=== PATIENT | male | born 1990 | race Caucasian/White ===

== ENCOUNTER 2017-03-06 16:31 | Emergency (ER) | payer SELFPAY ==
[2017-03-06 16:48] VITALS: BP 123/81; PULSE 74; RESP 18; TEMP 36.6; O2SAT 97; BMI 25.4
--- NOTE | 2017-03-06 17:14 | HMH.EDUTC ---
[facility] [place] Impression: Pain and swelling of left knee Disposition: Home, Self-Care Condition on Discharge: Good Instructions: Bakers Cyst, DI for Knee Pain, How to Apply an Rajeev Wrap, How To Perform RICE (Rest, Ice, Compress, Elevate) Additional Instructions: As we discussed, could be a Sky's Cyst but with your chronic pain, age and past medical history, I reviewed your symptoms with ER MD and he suggested you follow up with ortho. Rest elevated rajeev wrap Call ortho tomorrow Referrals: Attila Richardson MD [Staff Physician] - (Call ortho tomorrow. Tell them you were seen in [facility] tonight. ER neg. KNee pain w/ new onset swelling without injury. We told you to call in morning and request appt LATOYA. While waiting for appt, if pain or swelling worsens, redness occurs, you develop fever or chills then you follow up in [place] immediately. ) Time of Disposition: 18:33 Medical Decision Making Vital Signs: 03/06/17 16:48 Temperature 97.9 F Temperature Source Temporal Artery Scan Pulse Rate [Brachial] 74 Respiratory Rate 18 Blood Pressure [Right Arm] 123/81 Blood Pressure Mean [Right Arm] 95 Blood Pressure Source [Right Arm] Automatic Cuff Blood Pressure Position [Right Arm] Sitting 02 Sat by Pulse Oximetry 97 Oxygen Delivery Method Room Air Orders (Tests/Meds): ORDERS Category Date Time Status XR knee LT 3V Stat Exams 03/06/17 17:20 Taken - Radiology Data #1 Image(s): Knee Image Reviewed: Yes I reviewed the patient's radiology image, Yes I reviewed the patient's radiology image w/the ED provider Preliminary Findings: Normal/NAD (per Dr. Fernandez, ER MD) - Mario Inquiry Pt receiving controlled substance: No [facility] [place] - General Stated complaint: knot behind left knee Time Seen by Provider: 03/06/17 17:14 Mode of Arrival: Ambulatory Source of Information: Patient Limitations: No Limitations Description of Symptoms (Recalled from Triage Doc. by RN): KNOT ON THE BACK OF THE LEFT KNEE SINCE LAST NIGHT HEENT Symptoms (Recalled from RN notes): No Resp Symptoms (Recalled from RN notes): No Skin Symptoms (Recalled from RN notes): No MS Symptoms (Recalled from RN notes): No Functional Status (Recalled from RN notes): NA - History of Present Illness Provider Complaint: c/o swelling like a knot posterior left knee. First noticed last night. Fluctuates in size depending on activity. Hx of chronic left knee pain x 1 year. Hx of psoriatic arthritis and I just figured it has gotten in there . Has not been seen for symptoms. No PCP. Pain worse with ambulating or on stairs. Better at rest. Ibuprofen hasn't helped. Ice seemed to make swelling worse. Stands on feet working at [employer]. No known injury. Denies N/T. Feels anterior knee has fluid on it at times. - Related Data Home Medications Medication Instructions Recorded Confirmed No Known Home Medications [No 03/06/17 03/06/17 Known Home Medications] Allergies Allergy/AdvReac Type Severity Reaction Status Date / Time codeine [CODEINE] Allergy Unknown Verified 03/06/17 16:53 - Worker's Comp Is this a Worker's Comp case?: No [facility] History I have reviewed the patient's past medical history: Yes (psoriatic arthritis) Other Surgeries: Yes: No Previous Surgery - *Social History Smoking Status: Current every day smoker Tobacco Type: cigarettes Alcohol Intake: current Alcohol Intake Frequency:: a few times a month - Psychiatric History Expresses thoughts of harming self/others: None Suicide Plan Description: No Plan ROS Obtained: Yes Systems reviewed as appropriate & no additional complaints - Constitutional Constitutional: Denies body ache, Denies chills, Denies fatigue, Denies weakness - Cardiovascular Cardiovascular: Denies chest pain, Denies irregular heart rhythm - Respiratory Respiratory: No cough, No dyspnea - Musculoskeletal Musculoskeletal: Reports as per HPI, Denies abnormal gait, Denies decreased m
--- NOTE | 2017-03-06 17:20 | XR_ITS ---
XR knee LT 3V Ordering Physician: Isabella Pierre Patient Age: 26 years: Male HISTORY: ITS.REASON: chronic left knee pain, now posterior swelling TECHNIQUE: 3 views of the left knee COMPARISON :None FINDINGS No fracture nor dislocation. However there is a generous joint effusion suprapatella bursa clearly evident on the lateral view. The joint space appears to be fairly well-maintained on this nonweightbearing image. As well mineralized. Subtle Minor increased density along lateral aspect of the distal femoral metaphysis likely from old resolved fibrous cortical defect. IMPRESSION: A generous joint effusion suprapatella bursa. Osseous structures intact. No fracture evident. Joint space well maintained
--- NOTE | 2017-03-06 17:20 | ED_ITS ---
[facility] [place] Clinical Impression: Pain and swelling of left knee Disposition: Home, Self-Care Condition on Discharge: Good Instructions: Bakers Cyst, DI for Knee Pain, How to Apply an Rajeev Wrap, How To Perform RICE (Rest, Ice, Compress, Elevate) Additional Instructions: As we discussed, could be a Sky's Cyst but with your chronic pain, age and past medical history, I reviewed your symptoms with ER MD and he suggested you follow up with ortho. Rest elevated rajeev wrap Call ortho tomorrow Referrals: Attila Richardson MD [Staff Physician] - (Call ortho tomorrow. Tell them you were seen in [facility] tonight. ER neg. KNee pain w/ new onset swelling without injury. We told you to call in morning and request appt LATOYA. While waiting for appt, if pain or swelling worsens, redness occurs, you develop fever or chills then you follow up in [place] immediately. ) Time of Disposition: 18:33 Medical Decision Making Vital Signs: 03/06/17 16:48 Temperature 97.9 F Temperature Source Temporal Artery Scan Pulse Rate [Brachial] 74 Respiratory Rate 18 Blood Pressure [Right Arm] 123/81 Blood Pressure Mean [Right Arm] 95 Blood Pressure Source [Right Arm] Automatic Cuff Blood Pressure Position [Right Arm] Sitting 02 Sat by Pulse Oximetry 97 Oxygen Delivery Method Room Air Orders (Tests/Meds): ORDERS Category Date Time Status XR knee LT 3V Stat Exams 03/06/17 17:20 Taken - Radiology Data #1 Image(s): Knee Image Reviewed: Yes I reviewed the patient's radiology image, Yes I reviewed the patient's radiology image w/the ED provider Preliminary Findings: Normal/NAD (per Dr. Fernandez, ER MD) - Mario Inquiry Pt receiving controlled substance: No [facility] [place] HPI - General Stated complaint: knot behind left knee Time Seen by Provider: 03/06/17 17:14 Mode of Arrival: Ambulatory Source of Information: Patient Limitations: No Limitations Description of Symptoms (Recalled from Triage Doc. by RN): KNOT ON THE BACK OF THE LEFT KNEE SINCE LAST NIGHT HEENT Symptoms (Recalled from RN notes): No Resp Symptoms (Recalled from RN notes): No Skin Symptoms (Recalled from RN notes): No MS Symptoms (Recalled from RN notes): No Functional Status (Recalled from RN notes): NA - History of Present Illness Provider Complaint: c/o swelling like a knot posterior left knee. First noticed last night. Fluctuates in size depending on activity. Hx of chronic left knee pain x 1 year. Hx of psoriatic arthritis and I just figured it has gotten in there . Has not been seen for symptoms. No PCP. Pain worse with ambulating or on stairs. Better at rest. Ibuprofen hasn't helped. Ice seemed to make swelling worse. Stands on feet working at [employer]. No known injury. Denies N/T. Feels anterior knee has fluid on it at times. - Related Data Home Medications Medication Instructions Recorded Confirmed No Known Home Medications [No 03/06/17 03/06/17 Known Home Medications] Allergies Allergy/AdvReac Type Severity Reaction Status Date / Time codeine [CODEINE] Allergy Unknown Verified 03/06/17 16:53 - Worker's Comp Is this a Worker's Comp case?: No [facility] History I have reviewed the patient's past medical history: Yes (psoriatic arthritis) Other Surgeries: Yes: No Previous Surgery - *Social History Smoking Status: Current every day smoker Tobacco T
== END 2017-03-06 18:41 | disposition home or self-care (01) ==
LOC: ER 16:38 → UTC 16:43
PROVIDERS: Emergency Provider Nurse Practitioner Family
DX: M25.562 Pain in left knee (principal); F17.210 Nicotine dependence, cigarettes, uncomplicated; Z88.6 Allergy status to analgesic agent; L40.52 Psoriatic arthritis mutilans
CPT/HCPCS: 73562; 99202

== ENCOUNTER 2017-04-14 14:59 | Emergency (ER) | payer SELFPAY ==
[2017-04-14 15:16] VITALS: BP 122/75; PULSE 110; RESP 20; TEMP 37.4; O2SAT 98; BMI 23.6
--- NOTE | 2017-04-14 15:35 | HMH.EDUTC ---
[facility] [place] Clinical Impression: Acute bronchitis Qualifiers: Bronchitis organism: unspecified organism Qualified Code(s): J20.9 - Acute bronchitis, unspecified Disposition: Home, Self-Care Condition on Discharge: Good Instructions: DI for Acute Bronchitis Additional Instructions: * STOP SMOKING!!!! * No antibiotic. Xray negative for pneumonia and most bronchitis is viral. Be sure to follow up for new, worsening or persistent symptoms. * Monitor Temp. Feeling feverish and having a fever are not the same thing. Tylenol every 4 hours as needed no more then 5 times a day or 4000mg in 24 hours and/or ibuprofen every 6 hours as needed no more then 3200mg in 24 hours (as long as your primary care doctor has told you that it is ok to take both) for fever/aches/pain. ER if fever no less than 101 despite tylenol and ibuprofen * humidifier/vaporizer/hot steamy shower * Inhaler every 4-6 hours as needed like we discussed. If unsure how to use it, ask pharmacist to demonstrate how. Should help open airways and improve cough, wheezing, shortness of breath. * Mucinex during the day for your cough and cough suppressant only at night. Be sure to drink lots of water. Insurance may not cover a prescription of mucinex. Might be cheaper to get 400mg tablets and take 2 tablets morning, midday and evening all with lots of water. * Tessalon Perles will not cause drowsiness but use at bedtime to help stop cough so that you can get some rest * Start steroid today. Helps with inflammation therefore, cough and wheezing. Follow directions on package. Rvwd side effects. Pt reports they have taken them before. Follow up with primary care, [facility] or ER IMMEDIATELY for new or worsening symptoms OR no noticeable improvement over the next 48-72 hours. 911 for difficulty breathing. Prescriptions: Albuterol Sulfate [Albuterol HFA Inhaler] 1 - 2 puffs IH Q4-6H PRN #1 inh PRN Reason: Shortness Of Breath Or Wheezing Benzonatate [Benzonatate 200mg Cap] 200 mg PO HS PRN #14 cap PRN Reason: Cough predniSONE [Deltasone 10mg tablet] 10 mg PO BID #10 tab Forms: Work/School Release Time of Disposition: 16:41 Medical Decision Making Vital Signs: 04/14/17 15:16 Temperature 99.4 F Temperature Source Temporal Artery Scan Pulse Rate [Right Brachial] 110 H Respiratory Rate 20 Blood Pressure [Right Arm] 122/75 Blood Pressure Mean [Right Arm] 90 Blood Pressure Source [Right Arm] Automatic Cuff Blood Pressure Position [Right Arm] Sitting 02 Sat by Pulse Oximetry 98 Oxygen Delivery Method Room Air Orders (Tests/Meds): ORDERS Category Date Time Status CXR 2 view (NOT portable) [XR chest 2V] Stat Exams 04/14/17 15:39 Taken - Radiology Data #1 Image(s): Chest Image Reviewed: Yes I reviewed the patient's radiology image w/the ED provider Preliminary Findings: Normal/NAD Rvwd w/ Dr. Fernandez, agrees likely bronchitis. No acute findings - Mario Inquiry Pt receiving controlled substance: No [facility] [place] HPI - General Stated complaint: cough, lung pain Time Seen by Provider: 04/14/17 15:35 Mode of Arrival: Ambulatory Source of Information: Patient Limitations: No Limitations Description of Symptoms (Recalled from Triage Doc. by RN): COUGH, CHEST CONGESTION, VOMITING SINCE MONDAY HEENT Symptoms (Recalled from RN notes): No Resp Symptoms (Recalled from RN notes): Yes (COUGH, CHEST CONGESTION) Skin Symptoms (Recalled from RN notes): No MS Symptoms (Recalled from RN notes): No Functional Status (Recalled from RN notes): N/A - History of Present Illness Provider Complaint: c/o productive cough. Started w/ nasal drainage and sore throat Monday, 4 days ago. Not sure when cough, chest congestion started. Reports coughing so much, chest hurts with cough or deep breaths. SOA at times. Wheezing a lot . + tobacco abuse but not this week. I can't without coughing . No known sick contacts. Not sure about fevers but feeling feverish. - Related Data Previous
--- NOTE | 2017-04-14 15:39 | ED_ITS ---
[facility] [place] Clinical Impression: Acute bronchitis Qualifiers: Bronchitis organism: unspecified organism Qualified Code(s): J20.9 - Acute bronchitis, unspecified Disposition: Home, Self-Care Condition on Discharge: Good Instructions: DI for Acute Bronchitis Additional Instructions: * STOP SMOKING!!!! * No antibiotic. Xray negative for pneumonia and most bronchitis is viral. Be sure to follow up for new, worsening or persistent symptoms. * Monitor Temp. Feeling feverish and having a fever are not the same thing. Tylenol every 4 hours as needed no more then 5 times a day or 4000mg in 24 hours and/or ibuprofen every 6 hours as needed no more then 3200mg in 24 hours ( as long as your primary care doctor has told you that it is ok to take both) for fever/aches/pain. ER if fever no less than 101 despite tylenol and ibuprofen * humidifier/vaporizer/hot steamy shower * Inhaler every 4-6 hours as needed like we discussed. If unsure how to use it, ask pharmacist to demonstrate how. Should help open airways and improve cough, wheezing, shortness of breath. * Mucinex during the day for your cough and cough suppressant only at night. Be sure to drink lots of water. Insurance may not cover a prescription of mucinex. Might be cheaper to get 400mg tablets and take 2 tablets morning, midday and evening all with lots of water. * Tessalon Perles will not cause drowsiness but use at bedtime to help stop cough so that you can get some rest * Start steroid today. Helps with inflammation therefore, cough and wheezing. Follow directions on package. Rvwd side effects. Pt reports they have taken them before. Follow up with primary care, [facility] or ER IMMEDIATELY for new or worsening symptoms OR no noticeable improvement over the next 48-72 hours. 911 for difficulty breathing. Prescriptions: Albuterol Sulfate [Albuterol HFA Inhaler] 1 - 2 puffs IH Q4-6H PRN #1 inh PRN Reason: Shortness Of Breath Or Wheezing Benzonatate [Benzonatate 200mg Cap] 200 mg PO HS PRN #14 cap PRN Reason: Cough predniSONE [Deltasone 10mg tablet] 10 mg PO BID #10 tab Forms: Work/School Release Time of Disposition: 16:41 Medical Decision Making Vital Signs: 04/14/17 15:16 Temperature 99.4 F Temperature Source Temporal Artery Scan Pulse Rate [Right Brachial] 110 H Respiratory Rate 20 Blood Pressure [Right Arm] 122/75 Blood Pressure Mean [Right Arm] 90 Blood Pressure Source [Right Arm] Automatic Cuff Blood Pressure Position [Right Arm] Sitting 02 Sat by Pulse Oximetry 98 Oxygen Delivery Method Room Air Orders (Tests/Meds): ORDERS Category Date Time Status CXR 2 view (NOT portable) [XR chest 2V] Stat Exams 04/14/17 15:39 Taken - Radiology Data #1 Image(s): Chest Image Reviewed: Yes I reviewed the patient's radiology image w/the ED provider Preliminary Findings: Normal/NAD Rvwd w/ Dr. Fernandez, agrees likely bronchitis. No acute findings - Mario Inquiry Pt receiving controlled substance: No [facility] [place] - General Stated complaint: cough, lung pain Time Seen by Provider: 04/14/17 15:35 Mode of Arrival: Ambulatory Source of Information: Patient Limitations: No Limitations Description of Symptoms (Recalled from Triage Doc. by RN): COUGH, CHEST CONGESTION, VOMITING SINCE MONDAY HEENT Symptoms (Recalled from RN notes): No Resp Symptoms (Recalled from RN notes): Yes (COUGH, CHEST CONGESTION) Skin Symptoms (Recalled from RN notes): No MS Symptoms (Recalled from RN notes): No
--- NOTE | 2017-04-14 15:39 | XR_ITS ---
XR chest 2V HISTORY: ITS.REASON: COUGH, CHEST CONGESTION, SMOKER ORDERING PHYSICIAN: Isabella Pierre PATIENT AGE: 26 years COMPARISON: None available FINDINGS: The cardiomediastinal silhouette and pulmonary vascularity are within normal limits. The lungs are clear without infiltrates, suspicious nodules, or pleural effusions. Calcified granulomas present in the lingula No acute bony abnormalities. IMPRESSION: Negative chest, no acute finding
[2017-04-14 16:43] VITALS: BP 122/75; PULSE 110; RESP 20; TEMP 37.4; O2SAT 98
[2017-04-17 15:54] LABS: UTC Influenza A Antigen Negative (Negative); UTC Influenza B Antigen Negative (Negative)
== END 2017-04-14 16:45 | disposition home or self-care (01) ==
PROVIDERS: Emergency Provider Nurse Practitioner Family
DX: J20.9 Acute bronchitis, unspecified (principal)
CPT/HCPCS: 71046; 87804; 99203

== ENCOUNTER 2017-09-05 18:39 | Observation (INO) ==
--- NOTE | 2017-09-05 19:09 | Emergency Department Note ---
ED Disposition Condition on Discharge: Fair - Critical Care Critical Care Time: No <AmbergustaboNara - Last Filed: 09/05/17 20:04> <Asif Varela - Last Filed: 09/05/17 20:45> Clinical Impression: Nephrolithiasis Abdominal pain Qualifiers: Abdominal location: right lower quadrant Qualified Code(s): R10.31 - Right lower quadrant pain Disposition: Admitted as Observation Referrals: Provider,Referral, MD [Primary Care Provider] - Attestation: On 09/05/17, the high probability of a clinically significant, sudden or life threatening deterioration of the following system(s) required my full and direct attention, intervention and personal management. The time I documented below is in addition to time spent performing reported procedures but includes the following listed in this critical care notation. Medical Decision Making - Mario Inquiry Pt receiving controlled substance: No Mario was queried for this patient: No - Lab Data Result diagrams: 09/05/17 19:10 <AmbergustaboNara - Last Filed: 09/05/17 20:04> - Lab Data Lab results reviewed: Yes: I reviewed the patient's lab results. Result diagrams: 09/05/17 19:10 09/05/17 19:10 - CT Data CT Scan: Abdomen, Pelvis Time Received: 20:[address] Reviewed: Yes: I have viewed the radiologist's interpretation Preliminary Findings: Abnormal (possible appendicitis) - Physician Consults Physician Consulted: navneet Reason -: Admission Additional Consult: dave Reason -: Pt condition <Asif Varela - Last Filed: 09/05/17 20:45> Vital Signs: 09/05/17 18:49 09/05/17 20:08 Temperature 97.0 F L Temperature Source Oral Pulse Rate [Right Brachial] 79 77 Respiratory Rate 18 18 Blood Pressure [Right Arm] 119/79 120/82 Blood Pressure Mean [Right Arm] 92 94 Blood Pressure Source [Right Arm] Automatic Cuff Blood Pressure Position [Right Arm] Sitting 02 Sat by Pulse Oximetry 98 98 Oxygen Delivery Method Room Air Room Air - Lab Data Lab Results 09/05/17 19:10: WBC 5.5, RBC 5.31, Hgb 15.9, Hct 47.7, MCV 89.9, MCH 30.0, MCHC 33.4, RDW 12.8, Plt Count 253, MPV 7.3 L, Neut % (Auto) 66.1, Lymph % (Auto) 23.9, [place] % (Auto) 6.9, Eos % (Auto) 2.6, Baso % (Auto) 0.5, Neut # (Auto) 3.6 , Lymph # (Auto) 1.3, [place] # (Auto) 0.4, Eos # (Auto) 0.1, Baso # (Auto) 0.0 09/05/17 19:10: Sodium 139, Potassium 3.8, Chloride 106, Carbon Dioxide 25, Anion Gap 11.8, BUN 9, Creatinine 1.07, Estimated Creat Clear 116, Estimated GFR 83, Est GFR ( Amer) 100, Glucose 99, Calcium 9.1, Total Bilirubin 0.6 , AST 14 L, ALT 24, Alkaline Phosphatase 89, Total Protein 7.5, Albumin 3.9, Globulin 3.6 H, Albumin/Globulin Ratio 1.1, Lipase 102 09/05/17 19:10: Urine Color Yellow, Urine Appearance Clear, Urine pH 6.5, Ur Specific [place] 1.015, Urine Protein Negative, Urine Glucose (UA) Negative, Urine Ketones Negative, Urine Blood Negative, Urine Nitrate Negative, Urine Bilirubin Negative, Urine Urobilinogen 1.0, Ur Leukocyte Esterase Negative, Urine RBC None, Urine WBC None, Ur Squamous Epith Cells None, Urine Bacteria Trace, Urine Mucus 1+ Orders (Tests/Meds): ED MEDICATIONS Discontinued Medications Generic Name Dose Route Start Last Admin Trade Name Freq PRN Reason Stop Dose Admin Sodium Chloride 1,000 mls @ 999 mls/hr 09/05/17 19:15 09/05/17 19:05 Sod Chlor 0.9% 1000ml Bag IV 09/05/17 20:15 999 mls/hr .Q1H1M STEPHEN Administration Iopamidol 75 ml 09/05/17 19:44 09/05/17 19:44 [id number]; 75ml Vial IV 09/05/17 19:45 75 ml ONCE ONE Administration Ketorolac Tromethamine 30 mg 09/05/17 19:04 09/05/17 19:04 Toradol 30mg/Ml Vial IV 09/05/17 19:05 30 mg ONCE ONE Administration Ondansetron HCl 4 mg 09/05/17 19:04 07/24/18 19:05 Zofran 4mg/2ml Vial IV 09/05/17 19:05 4 mg ONCE ONE Administration Sodium Chloride 10 ml 09/05/17 19:44 09/05/17 19:44 Rad-Saline Flush 10ml Syringe IV 09/05/17 19:45 10 ml ONCE ONE Administration Tamsulosin HCl 0.4 mg 09/05/17 21:00 Flomax 0.4mg Capsule PO 10/05/17 20:59 HS STEPHEN Tamsulosin HCl 0.4 mg 09/05/17 19:50 09/05/17 19:54 Flomax 0.4mg Capsule PO 09/05/17 19:51 0.4 mg ONCE ONE Administration ORDERS Category Date Time Status CT abdomen pelvis wo/w con Stat Cat Scan 09/05/17 19:06 Taken Medical Decision Narrative: The patient underwent her CT and labs, results are pending was signed out to incoming physician Dr Varela for reassessment and disposition. (Nara Jordan) General Adult HPI - General Mode of Arrival: Ambulatory Limitations: No Limitations Description of Symptoms (Recalled from ER Triage Doc. by RN): abdominal and flank pain bilaterally - History of Present Illness Onset (ago): hour(s) Location: abdomen Radiation: non-radiation Severity: moderate Severity scale (1-10): 8 Quality: sharp Consistency: constant Relieving factors: none Exacerbating factors: none Associated symptoms: nausea/vomiting Treatments prior to arrival: other (norco and cipro. ) <Nara Jordan - Last Filed: 09/05/17 20:04> <Asif Varela - Last Filed: 09/05/17 20:45> - General Chief complaint: PAIN Stated complaint: poss kidney stone Time Seen by Provider: 09/05/17 18:50 - History of Present Illness HPI narrative: 26 years old white male with a history of psoriatic arthritis and nephrolithiasis. 2 days ago he developed left flank pain was evaluated at [facility] and was found to have hematuria and was treated for left ureteric stone with [place], Flomax and Cipro. The patient was unable to afford his Flomax and he did not strain his urine and he denies gross hematuria. Today he woke up from his nap at 4 PM with the right flank pain sharp in character rated 4/10 went to work and the pain worsened to 8/10 with nausea and dry heaves. He denies hematuria frequency or dysuria. He continues to complain of bilateral flank pain worse in the right. (Nara Jordan) - Related Data Home Medications Medication Instructions Recorded Confirmed No Known Home Medications 09/05/17 09/05/17 Allergies Allergy/AdvReac Type Severity Reaction Status Date / Time codeine [CODEINE] Allergy Unknown nausea & Verified 03/28/17 09:33 swelling [facility] History I have reviewed the patient's past medical history: Yes (Patient provided above history. ) Medical History: Reports:: Anxiety Denies:: Asthma, Cancer, Diabetes Mellitus Type 1, Diabetes Mellitus Type 2, Hypertension, MRSA Laterality Cases: Right: Other Other Surgeries: Yes: No Previous Surgery Amputation: No Fractures: No - Social History Educational Level: Completed High School Smoking Status: Never smoker Tobacco Type: cigarettes # Packs/Day (cigarettes): 1 Alcohol Intake: never - Psychiatric History Expresses thoughts of harming self/others: None Suicide Plan Description: No Plan Pschychiatric History:: Reports:: Anxiety Family Hx:: Cancer, Hypertension, Diabetes, Asthma <Nara Jordan - Last Filed: 09/05/17 20:04> ROS Obtained: Yes All systems reviewed & no additional complaints <Nara Jordan - Last Filed: 09/05/17 20:04> Physical Exam - General General appearance: alert, in no apparent distress - Head Head exam: atraumatic, normocephalic, normal inspection - Eye Eye exam: Present: normal appearance, PERRL, EOMI. Absent: scleral icterus, nystagmus - ENT ENT exam: Present: normal exam, normal oropharynx, mucous membranes moist, TM's normal bilaterally, normal external ear exam - Neck Neck exam: Present: normal inspection, full ROM, trachea midline. Absent: meningismus, lymphadenopathy - Chest Chest inspection: Present: normal inspection, symmetric chest wall rise. Absent : tenderness - Respiratory Respiratory exam: Present: normal lung sounds bilaterally. Absent: respiratory distress - Cardiovascular Cardiovascular exam: Present: regular rate, normal rhythm. Absent: JVD - Abdominal Exam Abdominal exam: Present: soft, tenderness, guarding, rebound, normal bowel sounds, tenderness at [place], other (In addition to bilateral flank tenderness he has a right lower quadrant tenderness with rebound tenderness.). Absent: distention, rigidity - exam: Present: normal inspection, normal testicular lie, circumcised. Absent : testicular tenderness, urethral discharge - Extremities Exam Extremities exam: Present: normal inspection, full ROM, normal capillary refill. Absent: calf tenderness - Back Exam Back exam: Present: normal inspection, CVA tenderness (R), CVA tenderness (L), other (The tenderness is worse on the right than left. ). Absent: tenderness - Neurological Exam Neurological exam: Present: alert, oriented X3, CN II-XII intact, motor sensory deficit, reflexes normal - Psychiatric Psychiatric exam: Present: normal affect, normal mood - Skin Skin exam: Present: warm, dry, intact, normal color - Lymphatic Lymphatic Findings: no adenopathy <Nara Jordan - Last Filed: 09/05/17 20:04>
[2017-09-05 19:17] LABS: Microscopic, Urine URINE MICROSCOPIC (MICROSCOPIC)
[2017-09-05 19:19] LABS: Appearance,Urine CLEAR (Clear); Bilirubin,Urine Negative (Negative); Blood, Urine Negative (Negative); Color,Urine YELLOW (Yellow); Glucose,Urine (UA) Negative (Negative); Ketones,Urine Negative (Negative); Leukocyte Esterase,Urine Negative (Negative); PH,Urine 6.5 (5.0-8.5); Protein,Urine Negative (Negative); Specific Gravity, Urine 1.015 (1.005-1.030)
[2017-09-05 19:20] LABS: Basophils % 0.5 % (0.1-2.0); Eosinophils # 0.1 K/mm3 (0.0-0.4); Eosinophils % 2.6 % (0.1-12.0); Hematocrit 47.7 % (42.0-52.0); Hemoglobin 15.9 g/dL (14.1-18.0); Lymphocytes # 1.3 K/mm3 (0.7-4.5); Lymphocytes % 23.9 K/mm3 (10-50); Mean Corpuscular HGB Conc 33.4 g/dL (31.8-35.4); Mean Corpuscular Volume 89.9 fl (80-94); Mean Platelet Volume 7.3 fl (7.4-10.4); Monocytes # 0.4 K/mm3 (0.1-1.0); Monocytes % 6.9 % (1.7-9.3); Neutrophils # 3.6 K/mm3 (1.8-7.8); Neutrophils % 66.1 % (37.0-80.0); Platelet Count 253 K/mm3 (142-424); Red Blood Count 5.31 M/mm3 (4.60-6.20); Red Cell Distribution Width 12.8 % (11.5-17.5); White Blood Count 5.5 K/mm3 (4.8-10.8)
[2017-09-05 19:28] LABS: Bacteria,Urine Trace /lpf; Mucus,Urine 1+ /lpf
[2017-09-05 20:04] LABS: Albumin Level 3.9 gm/dL (3.4-5.0); Albumin/Globulin Ratio 1.1 (1.1-1.8); Anion Gap 11.8 mEq/L (5-15); Bilirubin,Total 0.6 mg/dL (0.2-1.0); Calcium 9.1 mg/dL (8.5-10.1); Globulin 3.6 gm/dl (1.3-3.2); Potassium 3.8 mmoL/L (3.5-5.1); Total Protein,Serum 7.5 gm/dL (6.4-8.2)
[2017-09-06 05:45] LABS: Basophils % 0.4 % (0.1-2.0); Eosinophils # 0.3 K/mm3 (0.0-0.4); Eosinophils % 3.3 % (0.1-12.0); Hemoglobin 14.5 g/dL (14.1-18.0); Lymphocytes % 27.4 K/mm3 (10-50); Mean Corpuscular HGB Conc 33.8 g/dL (31.8-35.4); Mean Corpuscular Hemoglobin 30.6 pg (27.0-31.2); Mean Corpuscular Volume 90.4 fl (80-94); Mean Platelet Volume 7.1 fl (7.4-10.4); Monocytes # 0.4 K/mm3 (0.1-1.0); Monocytes % 5.4 % (1.7-9.3); Neutrophils # 4.7 K/mm3 (1.8-7.8); Neutrophils % 63.5 % (37.0-80.0); Platelet Count 238 K/mm3 (142-424); Red Blood Count 4.75 M/mm3 (4.60-6.20); White Blood Count 7.4 K/mm3 (4.8-10.8)
[2017-09-06 05:51] LABS: Anion Gap 9.9 mEq/L (5-15); Calcium 8.5 mg/dL (8.5-10.1); Potassium 3.9 mmoL/L (3.5-5.1)
--- NOTE | 2017-09-06 06:56 | Consult Report ---
*Admission Date: 09/05/17 *Chief complaint: ABDOMINAL PAIN *History of present illness: Patient is a 26-year-old white male. He does have a history of kidney stones. He had presented to the hospital in [place] on Monday with left flank pain. He felt that he may have passed a kidney stone. He was apparently found to have some microscopic hematuria and was diagnosed with kidney stone. He had no imaging at that time. Yesterday on Monday09/05/17 patient had developed some right lower abdominal and flank pain. He had presented to the emergency department here at [facility]. He was found to have a normal white blood cell count. He underwent CT scan with and without contrast. Preliminary report revealed no evidence of any ureteral stone or hydronephrosis. There was subtle findings of the appendix with some possible haziness of the proximal one third of a retrocecal appendix. This was read as equivocal for possible early developing appendicitis. Patient was admitted for inpatient management and surgical consultation for possible early appendicitis. Patient states that he has been passing a lot of gas. Review of Systems - Constitutional Reports anorexia - Eyes Denies change in vision - ENT Denies abnormal hearing - *Cardiovascular Denies chest pain - *Respiratory Denies cough - *Gastrointestinal Reports abdominal pain - *Genitourinary Denies difficulty urinating - *Musculoskeletal Denies abnormal walking - *Neurologic Denies dizziness [facility] History Medical History: Reports:: Anxiety Denies:: Asthma, Cancer, Diabetes Mellitus Type 1, Diabetes Mellitus Type 2, Hypertension, MRSA Other Medical History: Reports: Arthritis Laterality Cases: Right: Other Other Surgeries: Yes: No Previous Surgery Amputation: No Fractures: No - *Social History Educational Level: Completed Grade School Smoking Status: Current every day smoker Tobacco Type: cigarettes # Packs/Day (cigarettes): 1 #Yrs smoked (if former smoker): 3 Alcohol Intake: never Occupational Status: employed Housing: house Household Members: family - Psychiatric History Expresses thoughts of harming self/others: None Suicide Plan Description: No Plan Pschychiatric History:: Reports:: Anxiety *Family Hx:: Cancer, Hypertension, Diabetes, Asthma Meds Home Medications Medication Instructions Recorded Confirmed Type Ibuprofen [Ibu-200] 400 mg PO Q6HP PRN 09/05/17 09/05/17 History Allergies Allergy/AdvReac Type Severity Reaction Status Date / Time codeine [CODEINE] Allergy Unknown nausea & Verified 03/28/17 09:33 swelling Exam Vital signs and Labs for Last 24 Hours: Temp Pulse Resp BP Pulse Ox 98.1 F 60 18 116/69 98 09/06/17 04:00 09/06/17 04:00 09/06/17 04:00 09/06/17 04:00 09/06/17 04:00 Laboratory Results - last 24 hr 09/05/17 19:10: WBC 5.5, RBC 5.31, Hgb 15.9, Hct 47.7, MCV 89.9, MCH 30.0, MCHC 33.4, RDW 12.8, Plt Count 253, MPV 7.3 L, Neut % (Auto) 66.1, Lymph % (Auto) 23.9, [place] % (Auto) 6.9, Eos % (Auto) 2.6, Baso % (Auto) 0.5, Neut # (Auto) 3.6 , Lymph # (Auto) 1.3, [place] # (Auto) 0.4, Eos # (Auto) 0.1, Baso # (Auto) 0.0 09/05/17 19:10: Sodium 139, Potassium 3.8, Chloride 106, Carbon Dioxide 25, Anion Gap 11.8, BUN 9, Creatinine 1.07, Estimated Creat Clear 116, Estimated GFR 83, Est GFR ( Amer) 100, Glucose 99, Calcium 9.1, Total Bilirubin 0.6 , AST 14 L, ALT 24, Alkaline Phosphatase 89, Total Protein 7.5, Albumin 3.9, Globulin 3.6 H, Albumin/Globulin Ratio 1.1, Lipase 102 09/05/17 19:10: Urine Color Yellow, Urine Appearance Clear, Urine pH 6.5, Ur Specific [place] 1.015, Urine Protein Negative, Urine Glucose (UA) Negative, Urine Ketones Negative, Urine Blood Negative, Urine Nitrate Negative, Urine Bilirubin Negative, Urine Urobilinogen 1.0, Ur Leukocyte Esterase Negative, Urine RBC None, Urine WBC None, Ur Squamous Epith Cells None, Urine Bacteria Trace, Urine Mucus 1+ 09/06/17 05:34: WBC 7.4 D, RBC 4.75, Hgb 14.5, Hct 43.0, MCV 90.4, MCH 30.6, MCHC 33.8, RDW 13.0, Plt Count 238, MPV 7.1 L, Neut % (Auto) 63.5, Lymph % (Auto ) 27.4, [place] % (Auto) 5.4, Eos % (Auto) 3.3, Baso % (Auto) 0.4, Neut # (Auto) 4.7, Lymph # (Auto) 2.0, [place] # (Auto) 0.4, Eos # (Auto) 0.3, Baso # (Auto) 0.0 09/06/17 05:34: Sodium 142, Potassium 3.9, Chloride 109 H, Carbon Dioxide 27, Anion Gap 9.9, BUN 8, Creatinine 1.02, Estimated Creat Clear 115, Estimated GFR 88, Est GFR ( Amer) 106, Glucose 88, Calcium 8.5 I & O for Last 24 hours: Intake & Output 09/03/17 09/04/17 09/05/17 09/06/17 11:59 11:59 11:59 11:59 Intake Total 1375 / 1375 Balance 1375 / 1375 Weight 165 lb 3.995 oz - *Routine Respiratory Exam Present: CTA bilaterally - *Routine Cardiovascular Exam Present: RRR - *Routine Abdominal Exam Present: soft Comments: He has some subjective tenderness to deep palpation in the right lower quadrant. No guarding rebound. Results - Labs 09/06/17 05:34 09/06/17 05:34 Laboratory Results - last 24 hr 09/05/17 19:10: WBC 5.5, RBC 5.31, Hgb 15.9, Hct 47.7, MCV 89.9, MCH 30.0, MCHC 33.4, RDW 12.8, Plt Count 253, MPV 7.3 L, Neut % (Auto) 66.1, Lymph % (Auto) 23.9, [place] % (Auto) 6.9, Eos % (Auto) 2.6, Baso % (Auto) 0.5, Neut # (Auto) 3.6 , Lymph # (Auto) 1.3, [place] # (Auto) 0.4, Eos # (Auto) 0.1, Baso # (Auto) 0.0 09/05/17 19:10: Sodium 139, Potassium 3.8, Chloride 106, Carbon Dioxide 25, Anion Gap 11.8, BUN 9, Creatinine 1.07, Estimated Creat Clear 116, Estimated GFR 83, Est GFR ( Amer) 100, Glucose 99, Calcium 9.1, Total Bilirubin 0.6 , AST 14 L, ALT 24, Alkaline Phosphatase 89, Total Protein 7.5, Albumin 3.9, Globulin 3.6 H, Albumin/Globulin Ratio 1.1, Lipase 102 09/05/17 19:10: Urine Color Yellow, Urine Appearance Clear, Urine pH 6.5, Ur Specific [place] 1.015, Urine Protein Negative, Urine Glucose (UA) Negative, Urine Ketones Negative, Urine Blood Negative, Urine Nitrate Negative, Urine Bilirubin Negative, Urine Urobilinogen 1.0, Ur Leukocyte Esterase Negative, Urine RBC None, Urine WBC None, Ur Squamous Epith Cells None, Urine Bacteria Trace, Urine Mucus 1+ 09/06/17 05:34: WBC 7.4 D, RBC 4.75, Hgb 14.5, Hct 43.0, MCV 90.4, MCH 30.6, MCHC 33.8, RDW 13.0, Plt Count 238, MPV 7.1 L, Neut % (Auto) 63.5, Lymph % (Auto ) 27.4, [place] % (Auto) 5.4, Eos % (Auto) 3.3, Baso % (Auto) 0.4, Neut # (Auto) 4.7, Lymph # (Auto) 2.0, [place] # (Auto) 0.4, Eos # (Auto) 0.3, Baso # (Auto) 0.0 09/06/17 05:34: Sodium 142, Potassium 3.9, Chloride 109 H, Carbon Dioxide 27, Anion Gap 9.9, BUN 8, Creatinine 1.02, Estimated Creat Clear 115, Estimated GFR 88, Est GFR ( Amer) 106, Glucose 88, Calcium 8.5 Assessment and Plan - Assessment and plan all Dx Assessment and Plan for all problems:: The exact etiology of his symptoms seem somewhat elusive at this time. His presentation and findings on examination are very subtle and equivocal for acute appendicitis. Plan to continue observation at this time. I will review the CT scan images with radiology today.
--- NOTE | 2017-09-06 07:10 | Pharmacy Consult Notes ---
[facility] Pharmacy VTE Monitoring - Patient Demographics Admission date: 09/05/17 Report Date: 09/06/17 Time: 07:10 Allergies/Adverse Reactions: Patient Allergies codeine [CODEINE] Allergy (Unknown, Verified 03/28/17 09:33) nausea & swelling Height: 1.73 m Weight: 74.956 kg Patient Problems: Current Active Problems Nephrolithiasis (Acute) Abdominal pain (Acute) - VTE Risk Labs: VTE Related Lab Results Hgb 14.5 g/dL (14.1-18.0) 09/06/17 05:34 Hct 43.0 % (42.0-52.0) 09/06/17 05:34 Plt Count 238 K/mm3 (142-424) 09/06/17 05:34 BUN 8 mg/dL (7-18) 09/06/17 05:34 Creatinine 1.02 mg/dL (0.70-1.30) 09/06/17 05:34 Estimated Creat Clear 115 mL/min (0-300) 09/06/17 05:34 Was VTE Risk Assessment Performed: Yes VTE Score: 1 VTE Risk Level: Very Low Risk - Prophylaxis VTE Prophylaxis Ordered?: Yes Types of VTE Prophylaxis: TEDS Knee High
--- NOTE | 2017-09-06 08:10 | History & Physical Report ---
*Admission Date: 09/05/17 <BethKiersten - 09/06/17 08:36> *History of present illness: Mr. Santiago is a 26-year-old white male with a history of numerous kidney stones and psoriatic arthritis. He had presented to the hospital in [place] on Monday with left flank pain. He felt that he may have passed a kidney stone. He was apparently found to have some microscopic hematuria and was diagnosed with kidney stone. He had no imaging at that time. He received pain medicine and slept the following day. Yesterday on 09/05/17 patient developed some right lower abdominal and flank pain. He then presented to [facility] emergency department. With evaluation he was found to have a normal white blood cell count. He underwent CT scan with and without contrast. Preliminary report revealed no evidence of any ureteral stone or hydronephrosis. There were subtle findings of the appendix with some possible haziness of the proximal one third of a retrocecal appendix. This was read as equivocal for possible early developing appendicitis. Patient was admitted for inpatient management and surgical consultation for possible early appendicitis. Patient states that he has been passing a lot of gas. He did vomit initially on Monday and had dry heaves at work yesterday prior to coming into the emergency room. His last bowel movement was on Monday and was normal.. He has had very little to eat or drink in the last 2-3 days. Kidneys have been moving normally and he has not noted any hematuria. This a.m. he states he has not slept due to the abdominal discomfort. He does not want morphine for the pain because it makes him feel awful. He has been seen by Dr. Schmidt, surgeon. He remains n.p.o. he denies nausea and vomiting. He has been voiding without problems. <Kiersten Beth - 09/06/17 08:36> [facility] History Medical History: Reports:: Anxiety, Gastroesophageal Reflux Disease(GERD), Kidney Stones Denies:: Asthma, Cancer, Chronic Obstructive Pulmonary Disease (COPD), Diabetes Mellitus Type 1, Diabetes Mellitus Type 2, Gastrointestinal Bleed, Hypertension, MRSA <Kiersten Beth - 09/06/17 08:36> Other Medical History: Reports: Arthritis (Psoriatic arthritis) <Kiersten Beth - 09/06/17 08:36> Laterality Cases: Right: Other <Kiersten Beth 09/06/17 08:36> Other Surgeries: Yes: No Previous Surgery <Kiersten Beth 09/06/17 08:36> Amputation: No <Kiersten Beth 09/06/17 08:36> Fractures: No <Kiersten Beth 09/06/17 08:36> - *Social History Educational Level: Completed Grade School <Kiersten Beth 09/06/17 08:36> Smoking Status: Current every day smoker <Kiersten Beth 09/06/17 08:36> Tobacco Type: cigarettes <Kiersten Beth 09/06/17 08:36> # Packs/Day (cigarettes): 1 <Kiersten Beth 09/06/17 08:36> #Yrs smoked (if former smoker): 3 <Kiersten Beth 09/06/17 08:36> Alcohol Intake: never <Kiersten Beth 09/06/17 08:36> Occupational Status: employed <Kiersten Beth 09/06/17 08:36> Housing: house <Kiersten Beth 09/06/17 08:36> Household Members: family <Kiersten Beth 09/06/17 08:36> - Psychiatric History Expresses thoughts of harming self/others: None <Kiersten Beth 09/06/17 08: 36> Suicide Plan Description: No Plan <Kiersten Beth 09/06/17 08:36> Pschychiatric History:: Reports:: Anxiety <Kiersten Beth 09/06/17 08:36> *Family Hx:: Cancer, Hypertension, Diabetes, Asthma <Kiersten Beth 09/06/17 08:36> Comment: Kidney stones <Kiersten Beth 09/06/17 08:36> Review of Systems - Constitutional Denies excessive sweating <IgnaciaKiersten 09/06/17 08:36> - ENT Reports post nasal drip, Denies dizziness, Denies ear pain, Denies headache(s), Denies sore throat <Beth,Kiersten 09/06/17 08:36> - *Cardiovascular Denies chest pain, Denies leg swelling <IgnaciaKiersten 09/06/17 08:36> - *Respiratory Reports cough (Sometimes productive), Reports wheezing, Denies chest congestion , Denies shortness of breath <BethKiersten 09/06/17 08:36> - *Gastrointestinal Reports abdominal pain, Reports heartburn, Reports nausea, Reports vomiting, Denies change in stools, Denies constipation, Denies loose stools <Beth Kiersten 09/06/17 08:36> - *Genitourinary Reports side pain, Denies difficulty urinating, Denies painful urination, Denies decreased urination, Denies urinary frequency <BethKiersten 08:36> - *Musculoskeletal Reports joint pain (Left knee), Reports joint swelling [facility]> - *Neurologic Denies abnormal walking, Denies abnormal hearing, Denies dizziness <Beth Kiersten 09/06/17 08:36> - Psychiatric Comments: History of panic attacks <IgnaciaKiersten 09/06/17 08:36> Meds Home Medications Medication Instructions Recorded Confirmed Type Ibuprofen [Ibu-200] 400 mg PO Q6HP PRN 09/05/17 09/05/17 History <YeimyJimmy Ruslan - 09/06/17 09:13> Allergies Allergy/AdvReac Type Severity Reaction Status Date / Time codeine [CODEINE] Allergy Unknown nausea & Verified 03/28/17 09:33 swelling <Jimmy Gaffney - 09/06/17 09:13> Exam Vital signs and Labs for Last 24 Hours: Temp Pulse Resp BP Pulse Ox 98.3 F 68 18 126/79 97 09/06/17 08:00 09/06/17 08:00 09/06/17 04:00 09/06/17 08:00 09/06/17 08:15 Laboratory Results - last 24 hr 09/05/17 19:10: WBC 5.5, RBC 5.31, Hgb 15.9, Hct 47.7, MCV 89.9, MCH 30.0, MCHC 33.4, RDW 12.8, Plt Count 253, MPV 7.3 L, Neut % (Auto) 66.1, Lymph % (Auto) 23.9, [place] % (Auto) 6.9, Eos % (Auto) 2.6, Baso % (Auto) 0.5, Neut # (Auto) 3.6 , Lymph # (Auto) 1.3, [place] # (Auto) 0.4, Eos # (Auto) 0.1, Baso # (Auto) 0.0 09/05/17 19:10: Sodium 139, Potassium 3.8, Chloride 106, Carbon Dioxide 25, Anion Gap 11.8, BUN 9, Creatinine 1.07, Estimated Creat Clear 116, Estimated GFR 83, Est GFR ( Amer) 100, Glucose 99, Calcium 9.1, Total Bilirubin 0.6 , AST 14 L, ALT 24, Alkaline Phosphatase 89, Total Protein 7.5, Albumin 3.9, Globulin 3.6 H, Albumin/Globulin Ratio 1.1, Lipase 102 09/05/17 19:10: Urine Color Yellow, Urine Appearance Clear, Urine pH 6.5, Ur Specific [place] 1.015, Urine Protein Negative, Urine Glucose (UA) Negative, Urine Ketones Negative, Urine Blood Negative, Urine Nitrate Negative, Urine Bilirubin Negative, Urine Urobilinogen 1.0, Ur Leukocyte Esterase Negative, Urine RBC None, Urine WBC None, Ur Squamous Epith Cells None, Urine Bacteria Trace, Urine Mucus 1+ 09/06/17 05:34: WBC 7.4 D, RBC 4.75, Hgb 14.5, Hct 43.0, MCV 90.4, MCH 30.6, MCHC 33.8, RDW 13.0, Plt Count 238, MPV 7.1 L, Neut % (Auto) 63.5, Lymph % (Auto ) 27.4, [place] % (Auto) 5.4, Eos % (Auto) 3.3, Baso % (Auto) 0.4, Neut # (Auto) 4.7, Lymph # (Auto) 2.0, [place] # (Auto) 0.4, Eos # (Auto) 0.3, Baso # (Auto) 0.0 09/06/17 05:34: Sodium 142, Potassium 3.9, Chloride 109 H, Carbon Dioxide 27, Anion Gap 9.9, BUN 8, Creatinine 1.02, Estimated Creat Clear 115, Estimated GFR 88, Est GFR ( Amer) 106, Glucose 88, Calcium 8.5 <Jimmy Gaffney - 09/06/17 09:13> Temp Pulse Resp BP Pulse Ox 98.1 F 60 18 116/69 98 09/06/17 04:00 09/06/17 04:00 09/06/17 04:00 09/06/17 04:00 09/06/17 04:00 Laboratory Results - last 24 hr 09/05/17 19:10: WBC 5.5, RBC 5.31, Hgb 15.9, Hct 47.7, MCV 89.9, MCH 30.0, MCHC 33.4, RDW 12.8, Plt Count 253, MPV 7.3 L, Neut % (Auto) 66.1, Lymph % (Auto) 23.9, [place] % (Auto) 6.9, Eos % (Auto) 2.6, Baso % (Auto) 0.5, Neut # (Auto) 3.6 , Lymph # (Auto) 1.3, [place] # (Auto) 0.4, Eos # (Auto) 0.1, Baso # (Auto) 0.0 09/05/17 19:10: Sodium 139, Potassium 3.8, Chloride 106, Carbon Dioxide 25, Anion Gap 11.8, BUN 9, Creatinine 1.07, Estimated Creat Clear 116, Estimated GFR 83, Est GFR ( Amer) 100, Glucose 99, Calcium 9.1, Total Bilirubin 0.6 , AST 14 L, ALT 24, Alkaline Phosphatase 89, Total Protein 7.5, Albumin 3.9, Globulin 3.6 H, Albumin/Globulin Ratio 1.1, Lipase 102 09/05/17 19:10: Urine Color Yellow, Urine Appearance Clear, Urine pH 6.5, Ur Specific [place] 1.015, Urine Protein Negative, Urine Glucose (UA) Negative, Urine Ketones Negative, Urine Blood Negative, Urine Nitrate Negative, Urine Bilirubin Negative, Urine Urobilinogen 1.0, Ur Leukocyte Esterase Negative, Urine RBC None, Urine WBC None, Ur Squamous Epith Cells None, Urine Bacteria Trace, Urine Mucus 1+ 09/06/17 05:34: WBC 7.4 D, RBC 4.75, Hgb 14.5, Hct 43.0, MCV 90.4, MCH 30.6, MCHC 33.8, RDW 13.0, Plt Count 238, MPV 7.1 L, Neut % (Auto) 63.5, Lymph % (Auto ) 27.4, [place] % (Auto) 5.4, Eos % (Auto) 3.3, Baso % (Auto) 0.4, Neut # (Auto) 4.7, Lymph # (Auto) 2.0, [place] # (Auto) 0.4, Eos # (Auto) 0.3, Baso # (Auto) 0.0 09/06/17 05:34: Sodium 142, Potassium 3.9, Chloride 109 H, Carbon Dioxide 27, Anion Gap 9.9, BUN 8, Creatinine 1.02, Estimated Creat Clear 115, Estimated GFR 88, Est GFR ( Amer) 106, Glucose 88, Calcium 8.5 <Kiersten Beth - 09/06/17 08:36> I & O for Last 24 hours: Intake & Output 09/03/17 09/04/17 09/05/17 09/06/17 11:59 11:59 11:59 11:59 Intake Total 1375 / 1375 Balance 1375 / 1375 Weight 165 lb 4 oz <Jimmy Gaffney - 09/06/17 09:13> Intake & Output 09/03/17 09/04/17 09/05/17 09/06/17 11:59 11:59 11:59 11:59 Intake Total 1375 / 1375 Balance 1375 / 1375 Weight 165 lb 4 oz <Kiersten Beth - 09/06/17 08:36> Radiology Reports for the Last 24 Hours: 09/05/2017 CT of abdomen and pelvis IMPRESSION------- 1.... Majority the appendix is air-filled thin wall with no fluid. Slight slightly increasing and more generous thickness where transitions to joins the cecum, with only trace hazy appearance about this point which may be due to adjacent vascular structures... No enhancement of this area. I have a fairly low suspicion of acute appendicitis & I believe is merely reflects a transition of the appendix to the cecum. [facility] report reported as equivocal for acute appendicitis. . Very strong clinical suspicion of appendicitis would be required to further pursue based these equivocal minimal CT findings. If not pursue on clinical grounds and desire further evaluation, a follow-up CT abdomen with oral and IV contrast would be recommended 2. Remainder of abdomen satisfactory. Upper normal fluid throughout small bowel 3. Only note right ureter is very slightly more generous than left, but I see no calculi or obstruction. Warrants correlation with urinalysis to exclude UTI <[facility] 09/06/17 08:36> - Constitutional no acute distress <[facility] 09/06/17 08:36> - *Routine HEENT Exam Head: Present: normocephalic, atraumatic <[facility] 09/06/17 08:36> Eye: Present: PERRL. Absent: conjunctival icterus, scleral injection <Beth [facility] 09/06/17 08:36> ENT: Present: mucous membranes moist, oropharynx clear <Beth,[facility] 08:36> - *Routine Neck Exam Present: supple. Absent: carotid bruit, lymphadenopathy, thyromegaly <Beth [facility] 09/06/17 08:36> - *Routine Respiratory Exam Present: CTA bilaterally (Bilaterally anteriorly and posteriorly). Absent: diminished air movement <[facility] 09/06/17 08:36> - *Routine Cardiovascular Exam Present: RRR <[facility] 09/06/17 08:36> - *Routine Abdominal Exam Present: soft, normoactive bowel sounds, tenderness (Right flank and right lower quadrant with some guarding). Absent: distended <[facility] 08:36> - *Routine Extremities Exam Absent: edema, calf tenderness <[facility] 09/06/17 08:36> - *Routine Neurological Exam Present: alert, oriented X3 [facility] 09/06/17 08:36> H&P: Result - Labs Labs: Short CBC 09/05/17 09/06/17 Range/Units 19:10 05:34 WBC 5.5 7.4 D (4.8-10.8) K/mm3 Hgb 15.9 14.5 (14.1-18.0) g/dL Hct 47.7 43.0 (42.0-52.0) % Plt Count 253 238 (142-424) K/mm3 BMP 09/05/17 09/06/17 19:10 05:34 Sodium 139 142 Potassium 3.8 3.9 Chloride 106 109 H Carbon Dioxide 25 27 BUN 9 8 Creatinine 1.07 1.02 Glucose 99 88 Calcium 9.1 8.5 Liver Function 09/05/17 Range/Units 19:10 Total Bilirubin 0.6 (0.2-1.0) mg/dL AST 14 L (15-37) U/L ALT 24 (12-78) U/L Alkaline Phosphatase 89 (46-116) U/L Albumin 3.9 (3.4-5.0) gm/dL Urine 09/05/17 Range/Units 19:10 Urine Color Yellow (Yellow) Urine Appearance Clear (Clear) Urine pH 6.5 (5.0-8.5) Ur Specific [place] 1.015 (1.005-1.030) Urine Protein Negative (Negative) Urine Glucose (UA) Negative (Negative) <Jimmy Gaffney - 09/06/17 09:13> Short CBC 09/05/17 09/06/17 Range/Units 19:10 05:34 WBC 5.5 7.4 D (4.8-10.8) K/mm3 Hgb 15.9 14.5 (14.1-18.0) g/dL Hct 47.7 43.0 (42.0-52.0) % Plt Count 253 238 (142-424) K/mm3 BMP 09/05/17 09/06/17 19:10 05:34 Sodium 139 142 Potassium 3.8 3.9 Chloride 106 109 H Carbon Dioxide 25 27 BUN 9 8 Creatinine 1.07 1.02 Glucose 99 88 Calcium 9.1 8.5 Liver Function 09/05/17 Range/Units 19:10 Total Bilirubin 0.6 (0.2-1.0) mg/dL AST 14 L (15-37) U/L ALT 24 (12-78) U/L Alkaline Phosphatase 89 (46-116) U/L Albumin 3.9 (3.4-5.0) gm/dL Urine 09/05/17 Range/Units 19:10 Urine Color Yellow (Yellow) Urine Appearance Clear (Clear) Urine pH 6.5 (5.0-8.5) Ur Specific [place] 1.015 (1.005-1.030) Urine Protein Negative (Negative) Urine Glucose (UA) Negative (Negative) <Kiersten Beth - 09/06/17 08:36> Assessment and Plan (1) Abdominal pain Current visit: Yes Status: Acute Qualifiers: Abdominal location: right lower quadrant Qualified Code(s): R10.31 - Right lower quadrant pain Category: Medical Code(s): R10.9 - Unspecified abdominal pain (2) Psoriatic arthritis Current visit: Yes Status: Chronic Category: Medical Code(s): L40.50 - Arthropathic psoriasis, unspecified (3) History of kidney stones Current visit: Yes Status: Chronic Category: Medical Code(s): Z87.442 - Personal history of urinary calculi (4) Pain and swelling of left knee Current visit: No Status: Chronic Category: Medical Code(s): M25.562 - Pain in left knee; M25.462 - Effusion, left knee <Jimmy Gaffney - 09/06/17 09:13> (1) Abdominal pain Current visit: Yes Status: Acute Qualifiers: Abdominal location: right lower quadrant Qualified Code(s): R10.31 - Right lower quadrant pain Category: Medical Code(s): R10.9 - Unspecified abdominal pain (2) Psoriatic arthritis Current visit: Yes Status: Chronic Category: Medical Code(s): L40.50 - Arthropathic psoriasis, unspecified (3) History of kidney stones Current visit: Yes Status: Chronic Category: Medical Code(s): Z87.442 - Personal history of urinary calculi (4) Pain and swelling of left knee Current visit: No Status: Chronic Category: Medical Code(s): M25.562 - Pain in left knee; M25.462 - Effusion, left knee <Kiersten Beth - 09/06/17 08:37> - Assessment and plan all Dx Assessment and Plan for all problems:: Patient seen and examined. Surgical consult reviewed. Patient states that pain is mostly localized to RLQ but overall is not as intense as last night. No nausea or vomiting. Does not feel hungry. Will continue conservative management and serial exams. <Jimmy Gaffney - 09/06/17 09:13> Patient has been seen by Dr. Schmidt who will follow him as well. Continue with IV fluids and GI rest for now. <Kiersten Beth - 09/06/17 08:38>
--- NOTE | 2017-09-06 10:37 | Progress Note ---
Subjective Patient reports: feels better Narrative: Patient feels a bit better now. He describes feeling "tired". He is hungry and thirsty. Exam Vital signs and Labs for Last 24 Hours: Temp Pulse Resp BP Pulse Ox 98.3 F 68 18 126/79 97 09/06/17 08:00 09/06/17 08:00 09/06/17 04:00 09/06/17 08:00 09/06/17 08:15 Laboratory Results - last 24 hr 09/05/17 19:10: WBC 5.5, RBC 5.31, Hgb 15.9, Hct 47.7, MCV 89.9, MCH 30.0, MCHC 33.4, RDW 12.8, Plt Count 253, MPV 7.3 L, Neut % (Auto) 66.1, Lymph % (Auto) 23.9, [place] % (Auto) 6.9, Eos % (Auto) 2.6, Baso % (Auto) 0.5, Neut # (Auto) 3.6 , Lymph # (Auto) 1.3, [place] # (Auto) 0.4, Eos # (Auto) 0.1, Baso # (Auto) 0.0 09/05/17 19:10: Sodium 139, Potassium 3.8, Chloride 106, Carbon Dioxide 25, Anion Gap 11.8, BUN 9, Creatinine 1.07, Estimated Creat Clear 116, Estimated GFR 83, Est GFR ( Amer) 100, Glucose 99, Calcium 9.1, Total Bilirubin 0.6 , AST 14 L, ALT 24, Alkaline Phosphatase 89, Total Protein 7.5, Albumin 3.9, Globulin 3.6 H, Albumin/Globulin Ratio 1.1, Lipase 102 09/05/17 19:10: Urine Color Yellow, Urine Appearance Clear, Urine pH 6.5, Ur Specific [place] 1.015, Urine Protein Negative, Urine Glucose (UA) Negative, Urine Ketones Negative, Urine Blood Negative, Urine Nitrate Negative, Urine Bilirubin Negative, Urine Urobilinogen 1.0, Ur Leukocyte Esterase Negative, Urine RBC None, Urine WBC None, Ur Squamous Epith Cells None, Urine Bacteria Trace, Urine Mucus 1+ 09/06/17 05:34: WBC 7.4 D, RBC 4.75, Hgb 14.5, Hct 43.0, MCV 90.4, MCH 30.6, MCHC 33.8, RDW 13.0, Plt Count 238, MPV 7.1 L, Neut % (Auto) 63.5, Lymph % (Auto ) 27.4, [place] % (Auto) 5.4, Eos % (Auto) 3.3, Baso % (Auto) 0.4, Neut # (Auto) 4.7, Lymph # (Auto) 2.0, [place] # (Auto) 0.4, Eos # (Auto) 0.3, Baso # (Auto) 0.0 09/06/17 05:34: Sodium 142, Potassium 3.9, Chloride 109 H, Carbon Dioxide 27, Anion Gap 9.9, BUN 8, Creatinine 1.02, Estimated Creat Clear 115, Estimated GFR 88, Est GFR ( Amer) 106, Glucose 88, Calcium 8.5 I & O for Last 24 hours: Intake & Output 09/03/17 09/04/17 09/05/17 09/06/17 11:59 11:59 11:59 11:59 Intake Total 1375 / 1375 Balance 1375 / 1375 Weight 165 lb 4 oz - *Routine Abdominal Exam Present: soft. Absent: tenderness Progress Note: A&P (1) Abdominal pain Status: Acute Current Visit: Yes (2) Psoriatic arthritis Status: Chronic Current Visit: Yes (3) History of kidney stones Status: Chronic Current Visit: Yes (4) Pain and swelling of left knee Status: Chronic Current Visit: No Assessment and Plan for All Diagnoses:: I reviewed his CT scan images with radiology. This appears to be consistent with a normal appendix for all intents and purposes. Given this finding and given his improvement and lack of abdominal tenderness suspicion at this time for early developing appendicitis is exquisitely low. I will go ahead and start him on a diet. He may be all to be discharged home this afternoon with close outpatient follow-up if he is doing clinically well.
--- NOTE | 2017-09-06 16:09 | Progress Note ---
Subjective Patient reports: feels better Narrative: Patient states that he feels somewhat better this afternoon and has been able to rest. He did tolerate bland diet but does not have much of an appetite. He denies any nausea. He states that he ate a half a sandwich without difficulty. Exam Vital signs and Labs for Last 24 Hours: Temp Pulse Resp BP Pulse Ox 98.3 F 68 18 126/79 97 09/06/17 08:00 09/06/17 08:00 09/06/17 04:00 09/06/17 08:00 09/06/17 08:15 Laboratory Results - last 24 hr 09/05/17 19:10: WBC 5.5, RBC 5.31, Hgb 15.9, Hct 47.7, MCV 89.9, MCH 30.0, MCHC 33.4, RDW 12.8, Plt Count 253, MPV 7.3 L, Neut % (Auto) 66.1, Lymph % (Auto) 23.9, [place] % (Auto) 6.9, Eos % (Auto) 2.6, Baso % (Auto) 0.5, Neut # (Auto) 3.6 , Lymph # (Auto) 1.3, [place] # (Auto) 0.4, Eos # (Auto) 0.1, Baso # (Auto) 0.0 09/05/17 19:10: Sodium 139, Potassium 3.8, Chloride 106, Carbon Dioxide 25, Anion Gap 11.8, BUN 9, Creatinine 1.07, Estimated Creat Clear 116, Estimated GFR 83, Est GFR ( Amer) 100, Glucose 99, Calcium 9.1, Total Bilirubin 0.6 , AST 14 L, ALT 24, Alkaline Phosphatase 89, Total Protein 7.5, Albumin 3.9, Globulin 3.6 H, Albumin/Globulin Ratio 1.1, Lipase 102 09/05/17 19:10: Urine Color Yellow, Urine Appearance Clear, Urine pH 6.5, Ur Specific [place] 1.015, Urine Protein Negative, Urine Glucose (UA) Negative, Urine Ketones Negative, Urine Blood Negative, Urine Nitrate Negative, Urine Bilirubin Negative, Urine Urobilinogen 1.0, Ur Leukocyte Esterase Negative, Urine RBC None, Urine WBC None, Ur Squamous Epith Cells None, Urine Bacteria Trace, Urine Mucus 1+ 09/06/17 05:34: WBC 7.4 D, RBC 4.75, Hgb 14.5, Hct 43.0, MCV 90.4, MCH 30.6, MCHC 33.8, RDW 13.0, Plt Count 238, MPV 7.1 L, Neut % (Auto) 63.5, Lymph % (Auto ) 27.4, [place] % (Auto) 5.4, Eos % (Auto) 3.3, Baso % (Auto) 0.4, Neut # (Auto) 4.7, Lymph # (Auto) 2.0, [place] # (Auto) 0.4, Eos # (Auto) 0.3, Baso # (Auto) 0.0 09/06/17 05:34: Sodium 142, Potassium 3.9, Chloride 109 H, Carbon Dioxide 27, Anion Gap 9.9, BUN 8, Creatinine 1.02, Estimated Creat Clear 115, Estimated GFR 88, Est GFR ( Amer) 106, Glucose 88, Calcium 8.5 I & O for Last 24 hours: Intake & Output 09/04/17 09/05/17 09/06/17 09/07/17 11:59 11:59 11:59 11:59 Intake Total 1375 / 1375 240 / 240 Balance 1375 / 1375 240 / 240 Weight 165 lb 4 oz - *Routine Abdominal Exam Present: soft. Absent: tenderness Progress Note: A&P (1) Abdominal pain Status: Acute Current Visit: Yes (2) Psoriatic arthritis Status: Chronic Current Visit: Yes (3) History of kidney stones Status: Chronic Current Visit: Yes (4) Pain and swelling of left knee Status: Chronic Current Visit: No Assessment and Plan for All Diagnoses:: It appears very unlikely, although not absolutely ruled out, that he has appendicitis. I feel that from a surgical standpoint he may be a will be discharged home with early outpatient follow-up. Of course if he has recurrent progressive symptoms he should return for reevaluation. However, it appears extremely unlikely that he has appendicitis.
--- NOTE | 2017-09-07 12:02 | Discharge Summary ---
General - General Admission date:: 09/05/17 <Jimmy Gaffney - 09/14/17 14:03> 09/05/17 <Viktoriya Burch - 09/07/17 12:02> Discharge date: 09/06/17 <KierstenViktoriya - 09/07/17 12:02> HPI HPI: Mr. Santiago is a 26-year-old white male with a history of numerous kidney stones and psoriatic arthritis. He had presented to the hospital in [place] on Monday with left flank pain. He felt that he may have passed a kidney stone. He was apparently found to have some microscopic hematuria and was diagnosed with kidney stone. He had no imaging at that time. He received pain medicine and slept the following day. Yesterday on 09/05/17 patient developed some right lower abdominal and flank pain. He then presented to [facility] emergency department. With evaluation he was found to have a normal white blood cell count. He underwent CT scan with and without contrast. Preliminary report revealed no evidence of any ureteral stone or hydronephrosis. There were subtle findings of the appendix with some possible haziness of the proximal one third of a retrocecal appendix. This was read as equivocal for possible early developing appendicitis. Patient was admitted for inpatient management and surgical consultation for possible early appendicitis. Patient states that he has been passing a lot of gas. He did vomit initially on Monday and had dry heaves at work yesterday prior to coming into the emergency room. His last bowel movement was on Monday and was normal.. He has had very little to eat or drink in the last 2-3 days. Kidneys have been moving normally and he has not noted any hematuria. This a.m. he states he has not slept due to the abdominal discomfort. He does not want morphine for the pain because it makes him feel awful. He has been seen by Dr. Schmidt, surgeon. He remains n.p.o. he denies nausea and vomiting. He has been voiding without problems. <Viktoriya Burch - 09/07/17 12:02> Hospital Course Hospital Course: The patient was started on IV fluids and GI rest. He was seen by Dr. Schmidt who felt the exact etiology of his symptoms was somewhat elusive. His presentation and findings on examination were very subtle and equivocal for acute appendicitis. His plan was to observe the patient. He reviewed the patient's CT scan images with radiology and it was consistent with a normal appendix for all intents and purposes. He started him on a diet and the patient tolerated this and felt better. He felt from a surgical standpoint he could be discharged home with early outpatient follow-up. <Viktoriya Burch - 09/07/17 12:02> Objective Vital signs: Temp Pulse Resp BP Pulse Ox 98.3 F 68 18 126/79 97 09/06/17 08:00 09/06/17 08:00 09/06/17 04:00 09/06/17 08:00 09/06/17 08:15 <Jimmy Gaffney - 09/14/17 14:03> Temp Pulse Resp BP Pulse Ox 98.3 F 68 18 126/79 97 09/06/17 08:00 09/06/17 08:00 09/06/17 04:00 09/06/17 08:00 09/06/17 08:15 <KierstenJohna - 09/07/17 12:02> Narrative: - Constitutional no acute distress - *Routine HEENT Exam Head: Present: normocephalic, atraumatic Eye: Present: PERRL. Absent: conjunctival icterus, scleral injection ENT: Present: mucous membranes moist, oropharynx clear - *Routine Neck Exam Present: supple. Absent: carotid bruit, lymphadenopathy, thyromegaly - *Routine Respiratory Exam Present: CTA bilaterally (Bilaterally anteriorly and posteriorly). Absent: diminished air movement - *Routine Cardiovascular Exam Present: RRR - *Routine Abdominal Exam Present: soft, normoactive bowel sounds, tenderness (Right flank and right lower quadrant with some guarding). Absent: distended - *Routine Extremities Exam Absent: edema, calf tenderness - *Routine Neurological Exam Present: alert, oriented X3 <Viktoriya Burch - 09/07/17 12:02> DS: Diagnosis - Discharge Diagnosis (1) Abdominal pain Status: Acute (2) Psoriatic arthritis Status: Chronic (3) History of kidney stones Status: Chronic (4) Pain and swelling of left knee Status: Chronic <MichelenavidViktoriya - 09/07/17 11:52> (1) Abdominal pain Status: Acute (2) Psoriatic arthritis Status: Chronic (3) History of kidney stones Status: Chronic (4) Pain and swelling of left knee Status: Chronic <Jimmy Gaffney Ruslan - 09/14/17 14:03> Discharge Plan - Patient Discharge Instructions ACTIVITY: Continue current activity, Ambulate as tolerated <Viktoriya Burch - 12:02> DIET: advance to your usual diet <Viktoriya Burch - 09/07/17 12:02> Additional Instructions: good water intake <Yeimy,Jimmy Ruslan - 09/14/17 14:03> Patient Instructions: Acute Abdominal Pain, DI for Abdominal Pain-Adult < Jimmy Gaffney Ruslan - 09/14/17 14:03> Forms: <Jimmy Gaffney - 09/14/17 14:03> - Follow up Plan Follow up with: <Yeimy,Jimmy Ruslan - 09/14/17 14:03> Unknown provider or service follow up:: 09/06/17 14:31 to return to the ER prn for returning abdominal pain 09/06/17 14:32 Zofran 4mg q6h prn nausea/vomiting #10 <Viktoriya Burch - 09/07/17 12:02> Disposition: Home, Self-Care <Jimmy Gaffney Ruslan - 09/14/17 14:03> Home Medications: Home Medications Medication Instructions Recorded Confirmed Type Ibuprofen [Ibu-200] 400 mg PO Q6HP PRN 09/05/17 09/05/17 History <Jimmy Gaffney - 09/14/17 14:03> Prescriptions/Medication Reconciliation: New Ondansetron [Zofran 4mg ODT] 4 mg PO Q6H PRN #10 tab.rapdis PRN Reason: Nausea Continue Ibuprofen [Ibu-200] 400 mg PO Q6HP PRN PRN Reason: Mild To Moderate Pain <YeimyJimmy porras Ruslan - 09/14/17 14: 03> - Additional Information Additional Information: Concur with assessment and plan for discharge. <Yeimy,Jimmy Ruslan - 09/14/17 14:03>
== END 2017-09-06 15:55 | disposition home or self-care (01) ==
LOC: ER 18:39 → 2ND 18:39
PROVIDERS: ADMIT Family Medicine; ATTEND Family Medicine
CPT/HCPCS: 36415; 74170; 80048; 80053; 81001; 83690; 85025; 96374; 96375; 99283; G0378; J2405; Q9967

== ENCOUNTER 2019-12-07 14:31 | Emergency (ER) | payer MEDICAID, SELFPAY ==
[2019-12-07 14:40] VITALS: BP 122/79; PULSE 75; RESP 18; TEMP 36.7; O2SAT 98; BMI 22.8
--- NOTE | 2019-12-07 14:46 | ECG_ITS ---
APPROVED REPORT Exam: Resting ECG HR:77 bpm ECG Measurements Heart Rate 77 AXES DC 132 P 56 QRSd 74 QRS 91 QT 366 T 59 QTc 414 Conclusion Normal sinus rhythm Rightward axis Borderline ECG Electronically signed by : Felix Handy, 12/13/2019 11:39:36
--- NOTE | 2019-12-07 14:51 | XR_ITS ---
PROCEDURE: XR CHEST PORTABLE CLINICAL HISTORY: cough Cough and pain COMPARISON: CR CXR2V XR chest 2V from 04/14/2017 CR CXR2V XR chest 2V from 04/12/2018 FINDINGS: The cardiomediastinal silhouette and pulmonary vascularity are within normal limits. The lungs are clear without infiltrates, suspicious nodules, or pleural effusions. No acute bony abnormalities. IMPRESSION: No acute findings. Dictated by: Robles Fatima MD 12/07/2019 15:12 Robles Fatima MD in [place] 12/07/2019 15:12
[2019-12-07 15:06] LABS: Basophils # 0.1 K/mm3 (0-0.2); Basophils % 0.8 % (0.1-2.0); Eosinophils # 0.2 K/mm3 (0.0-0.4); Eosinophils % 2.4 % (0.1-12.0); Hematocrit 53.6 % (42.0-52.0); Hemoglobin 17.7 g/dL (14.1-18.0); Lymphocytes # 1.4 K/mm3 (0.7-4.5); Mean Corpuscular HGB Conc 32.9 g/dL (31.8-35.4); Mean Corpuscular Hemoglobin 31.2 pg (27.0-31.2); Mean Corpuscular Volume 94.6 fl (80-94); Mean Platelet Volume 7.2 fl (7.4-10.4); Monocytes # 0.4 K/mm3 (0.1-1.0); Monocytes % 6.6 % (1.7-9.3); Neutrophils # 4.2 K/mm3 (1.8-7.8); Neutrophils % 67.2 % (37.0-80.0); Platelet Count 276 K/mm3 (142-424); Red Blood Count 5.67 M/mm3 (4.60-6.20); Red Cell Distribution Width 13.2 % (11.5-17.5); White Blood Count 6.3 K/mm3 (4.8-10.8)
[2019-12-07 15:09] LABS: Blood Urea Nitrogen 14 mg/dl (9-20); Carbon Dioxide 29 mmol/L (22.0-30.0); Chloride 105 mmol/L (98-107); Creatinine Clearance Estimated 94 mL/min (50-200); Estimated Glomerular Filt Rate 79 ml/min (>60); Sodium 141 mmol/L (136-145)
[2019-12-07 15:10] LABS: Alanine Aminotransferase 27 U/L (12-78); Albumin Level 4.7 g/dl (3.5-5.0); Albumin/Globulin Ratio 1.5 (1.1-1.8); Alkaline Phosphatase 83 U/L (38-126); Aspartate Amino Transferase 33 U/L (17-59); Bilirubin,Total 0.8 mg/dl (0.2-1.3); Calcium 9.9 mg/dl (8.4-10.2); GFR (African American) 95 ML/MIN (>60); Globulin 3.1 g/dL (1.3-3.2); Glucose 108 mg/dl (74-100); Lipase 108 U/L (23-300); Total Protein,Serum 7.8 g/dl (6.3-8.2)
[2019-12-07 15:11] LABS: INR 1.03 (0.9-1.1); Prothrombin Time 11.4 seconds (9.4-11.8)
--- NOTE | 2019-12-07 15:13 | HMH.EDCP ---
ED Disposition Clinical Impression: Costalchondritis Disposition: Home, Self-Care Condition on Discharge: Good Instructions: DI for Costochondritis Prescriptions: Ibuprofen [Ibuprofen 800mg Tablet] 800 mg PO TIDP PRN #20 tab PRN Reason: Moderate Pain Transmission Status: Pending to [id number] Referrals: PCP,No [Primary Care Provider] - Asif Varela MD [Staff Physician] - - Critical Care Critical Care Time: No Attestation: On 12/07/19, the high probability of a clinically significant, sudden or life threatening deterioration of the following system(s) required my full and direct attention, intervention and personal management. The time I documented below is in addition to time spent performing reported procedures but includes the following listed in this critical care notation. Medical Decision Making - Medical Records Medical records reviewed: Yes: I reviewed the patient's medical records. - Mario Inquiry Pt receiving controlled substance: No Vital Signs: 12/07/19 14:40 12/07/19 15:31 Temperature 98.0 F Temperature Source Oral Pulse Rate [Right Radial] 75 77 Respiratory Rate 18 18 Blood Pressure [Right Arm] 122/79 121/78 Blood Pressure Mean [Right Arm] 93 92 Blood Pressure Source [Right Arm] Automatic Cuff Automatic Cuff Blood Pressure Position [Right Arm] Sitting Sitting 02 Sat by Pulse Oximetry 98 98 Oxygen Delivery Method Room Air Room Air - Lab Data Lab Results 12/07/19 14:52: WBC 6.3, RBC 5.67, Hgb 17.7, Hct 53.6 H, MCV 94.6 H, MCH 31.2, MCHC 32.9, RDW 13.2, Plt Count 276, MPV 7.2 L, Neut % (Auto) 67.2, Lymph % (Auto) 23.0, [place] % (Auto) 6.6, Eos % (Auto) 2.4, Baso % (Auto) 0.8, Neut # (Auto) 4.2, Lymph # (Auto) 1.4, [place] # (Auto) 0.4, Eos # (Auto) 0.2, Baso # (Auto) 0.1 12/07/19 14:52: PT 11.4, INR 1.03 12/07/19 14:52: D-Dimer < 0.25 12/07/19 14:52: Sodium 141, Potassium 4.0, Chloride 105, Carbon Dioxide 29, Anion Gap 11.0, BUN 14, Creatinine 1.10, Estimated Creat Clear 94, Estimated GFR 79, Est GFR ( Amer) 95, Glucose 108 H, Calcium 9.9, Total Bilirubin 0.8, AST 33, ALT 27, Alkaline Phosphatase 83, Troponin I < 0.01, NT-Pro-B Natriuret Pep 16.8, Total Protein 7.8, Albumin 4.7, Globulin 3.1, Albumin/Globulin Ratio 1.5, Lipase 108 Result diagrams: 12/07/19 14:52 12/07/19 14:52 Orders (Tests/Meds): ED MEDICATIONS Generic Name Dose Route Start Last Admin Trade Name Freq PRN Reason Stop Dose Admin Sodium Chloride 1,000 mls @ 999 mls/hr 12/07/19 15:00 12/07/19 14:57 Sod Chlor 0.9% 1000ml Bag IV 12/07/19 16:00 999 mls/hr .Q1H1M STEPHEN Administration Discontinued Medications Generic Name Dose Route Start Last Admin Trade Name Freq PRN Reason Stop Dose Admin Ketorolac Tromethamine 30 mg 12/07/19 14:51 12/07/19 14:54 Ketorolac 30mg/Ml Vial IM 12/07/19 14:52 Not Given ONCE ONE Ketorolac Tromethamine 30 mg 12/07/19 15:03 12/07/19 14:57 Ketorolac 30mg/Ml Vial IV 12/07/19 15:04 30 mg ONCE ONE Administration ORDERS Category Date Time Status Troponin I Q3H Lab 12/07/19 18:00 Ordered Troponin I Q3H Lab 12/07/19 21:00 Ordered - ECG Data Tracing #1 Normal ventricular rate of 77 bpm. AL interval 132 ms. Normal QTC. Sinus rhythm with nonspecific ST changes. ECG initial impression date: 12/07/19 ECG initial impression time: 14:50 - Reevaluation(s) Time: 15:47 Reevaluation #1: On reevaluation, patient's pain is significantly improved. Negative troponin. Negative D-dimer. I do believe patient's pain is consistent with costochondritis. Patient is to follow-up with PCP. Given strict return precautions. Verbalized understanding. Medical Decision Narrative: 29-year-old male presents to the emergency department with chronic chest discomfort. Patient is low risk for acute coronary syndrome. PERC negative. I do believe his symptoms are consistent with musculoskeletal chest wall pain. Work-up initiated.
[2019-12-07 15:17] LABS: D-Dimer < 0.25 ug/mL (0.15-8.0)
[2019-12-07 15:22] LABS: NT Pro Brain Natriuretic Pep. 16.8 pg/mL (0-125)
[2019-12-07 15:23] LABS: Troponin I < 0.01 ng/ml (0.00-0.034)
[2019-12-07 15:31] VITALS: BP 121/78; PULSE 77; RESP 18; O2SAT 98
[2019-12-07 15:59] VITALS: BP 116/70; PULSE 78; RESP 18; TEMP 36.7; O2SAT 98
== END 2019-12-07 16:00 | disposition home or self-care (01) ==
PROVIDERS: Emergency Provider Emergency Medicine
DX: M94.0 Chondrocostal junction syndrome [Tietze] (principal); K21.9 Gastro-esophageal reflux disease without esophagitis; F41.9 Anxiety disorder, unspecified; Z87.442 Personal history of urinary calculi; F17.210 Nicotine dependence, cigarettes, uncomplicated
CPT/HCPCS: 71045; 80053; 83690; 83880; 84484; 85025; 85378; 85610; 93005; 96365; 96375; 99283

== ENCOUNTER 2020-01-14 12:31 | Emergency (ER) | payer MEDICAID, SELFPAY ==
[2020-01-14 12:38] VITALS: BP 118/93; PULSE 90; RESP 18; TEMP 36.7; O2SAT 98; BMI 21.2
--- NOTE | 2020-01-14 12:43 | CT_ITS ---
PROCEDURE: CT ABDOMEN PELVIS W CON CLINICAL INDICATION: abdomen pain Right upper quadrant pain the COMPARISON: CT CT ABDOMEN PELVIS WO CON from 10/13/2018 TECHNIQUE: IV Contrast: 75ML Isovue 370 Oral Contrast None Axial images obtained with sagittal and coronal reformats. All CT scans at the facility use one or more dose reduction, viz: automated exposure control, ma/kV adjustment per patient size (including targeted exams where dose is matched to indication, i.e. head), or iterative reconstruction technique. FINDINGS: LOWER THORAX: No acute finding ABDOMEN & PELVIS: The liver, gallbladder, spleen, adrenal glands, pancreas, have an unremarkable appearance. The there are nonobstructing punctate bilateral renal calculi. No hydronephrosis. No ureteral calculi. Unremarkable appearing appendix. No intestinal obstruction or free air. There is diverticulosis of the sigmoid colon versus nondistended haustra. There is no evidence of diverticulitis. There are few scattered sclerotic foci within the pelvis and right hip consistent with bone islands. IMPRESSION: No acute finding Nonobstructing bilateral renal calculi Dictated by: Robles Fatima MD 01/14/2020 13:26 Robles Fatima MD in [place] 01/14/2020 13:26
[2020-01-14 12:55] LABS: Basophils % 0.6 % (0.1-2.0); Eosinophils # 0.2 K/mm3 (0.0-0.4); Eosinophils % 3.4 % (0.1-12.0); Hematocrit 52.2 % (42.0-52.0); Hemoglobin 17.7 g/dL (14.1-18.0); Lymphocytes # 1.6 K/mm3 (0.7-4.5); Lymphocytes % 28.9 % (10-50); Mean Corpuscular HGB Conc 33.8 g/dL (31.8-35.4); Mean Corpuscular Hemoglobin 31.6 pg (27.0-31.2); Mean Corpuscular Volume 93.4 fl (80-94); Mean Platelet Volume 8.2 fl (7.4-10.4); Monocytes # 0.3 K/mm3 (0.1-1.0); Monocytes % 5.6 % (1.7-9.3); Neutrophils # 3.3 K/mm3 (1.8-7.8); Neutrophils % 61.5 % (37.0-80.0); Platelet Count 287 K/mm3 (142-424); Red Blood Count 5.59 M/mm3 (4.60-6.20); Red Cell Distribution Width 12.6 % (11.5-17.5); White Blood Count 5.4 K/mm3 (4.8-10.8)
[2020-01-14 13:04] LABS: Chloride 105 mmol/L (98-107); Sodium 141 mmol/L (136-145)
[2020-01-14 13:05] LABS: Potassium 4.2 mmoL/L (3.5-5.1)
[2020-01-14 13:07] LABS: Alanine Aminotransferase 17 U/L (12-78); Alkaline Phosphatase 83 U/L (38-126); Amylase 82 U/L (30-110); Anion Gap 11.2 mEq/L (5-15); Aspartate Amino Transferase 30 U/L (17-59); Bilirubin,Total 0.7 mg/dl (0.2-1.3); Blood Urea Nitrogen 13 mg/dl (9-20); Calcium 9.6 mg/dl (8.4-10.2); Carbon Dioxide 29 mmol/L (22.0-30.0); Creatinine Clearance Estimated 88 mL/min (50-200); Estimated Glomerular Filt Rate 79 ml/min (>60); GFR (African American) 95 ML/MIN (>60); Glucose 100 mg/dl (74-100)
[2020-01-14 13:08] LABS: Albumin Level 4.6 g/dl (3.5-5.0); Albumin/Globulin Ratio 1.5 (1.1-1.8); Lipase 149 U/L (23-300); Total Protein,Serum 7.6 g/dl (6.3-8.2)
--- NOTE | 2020-01-14 13:08 | HMH.EDGENADL ---
ED Disposition Clinical Impression: Right upper quadrant abdominal pain Upper respiratory infection Qualifiers: URI type: unspecified URI Qualified Code(s): J06.9 - Acute upper respiratory infection, unspecified Disposition: Home, Self-Care Condition on Discharge: Good Instructions: DI for Abdominal Pain-Adult, Preventing the Spread of Coronavirus Discharge Instructions, DI for Viral Upper Respiratory Infection -- Adult Additional Instructions: Call back to the emergency department in 2-3 days to obtain your COVID-19 test result. Quarantine yourself until you obtain your result. Additional instructions for ABDOMINAL PAIN: See your physician as soon as possible for further evaluation. Return immediately if worsening abdominal pain, vomiting, shortness of breath, fever, vomiting of blood or abdominal distention. Referrals: PCP,No [Primary Care Provider] - - Critical Care Critical Care Time: No Attestation: On 01/14/20, the high probability of a clinically significant, sudden or life threatening deterioration of the following system(s) required my full and direct attention, intervention and personal management. The time I documented below is in addition to time spent performing reported procedures but includes the following listed in this critical care notation. Medical Decision Making - Medical Records Medical records reviewed: Yes: I reviewed the patient's medical records. MR Comment: Reviewed ER visit 12/07/2019. Left-sided chest pain, diagnosed with costochondritis. Cardiac work-up and work-up for PE negative. Liver function tests normal at that time. - Mario Inquiry Pt receiving controlled substance: No Vital Signs: 01/14/20 12:38 Temperature 98.0 F Temperature Source Oral Pulse Rate [Radial] 90 Respiratory Rate 18 Blood Pressure [Right Arm] 118/93 H Blood Pressure Mean [Right Arm] 101 Blood Pressure Source [Right Arm] Automatic Cuff Blood Pressure Position [Right Arm] Sitting 02 Sat by Pulse Oximetry 98 Oxygen Delivery Method Room Air - Lab Data Lab results reviewed: Yes: I reviewed the patient's lab results. Lab Results 01/14/20 12:45: WBC 5.4, RBC 5.59, Hgb 17.7, Hct 52.2 H, MCV 93.4, MCH 31.6 H, MCHC 33.8, RDW 12.6, Plt Count 287, MPV 8.2, Neut % (Auto) 61.5, Lymph % (Auto) 28.9, [place] % (Auto) 5.6, Eos % (Auto) 3.4, Baso % (Auto) 0.6, Neut # (Auto) 3.3, Lymph # (Auto) 1.6, [place] # (Auto) 0.3, Eos # (Auto) 0.2, Baso # (Auto) 0.0 01/14/20 12:45: Sodium 141, Potassium 4.2, Chloride 105, Carbon Dioxide 29, Anion Gap 11.2, BUN 13, Creatinine 1.10, Estimated Creat Clear 88, Estimated GFR 79, Est GFR ( Amer) 95, Glucose 100, Calcium 9.6, Total Bilirubin 0.7, AST 30, ALT 17, Alkaline Phosphatase 83, Total Protein 7.6, Albumin 4.6, Globulin 3.0, Albumin/Globulin Ratio 1.5, Amylase 82, Lipase 149 Result diagrams: 01/14/20 12:45 01/14/20 12:45 Orders (Tests/Meds): ED MEDICATIONS Discontinued Medications Generic Name Dose Route Start Last Admin Trade Name Freq PRN Reason Stop Dose Admin Iopamidol 75 ml 01/14/20 13:02 01/14/20 13:03 Iopamidol-370 (76%);100ml Bottle IV 01/14/20 13:03 75 ml ONCE ONE Administration Sodium Chloride 10 ml 01/14/20 13:02 01/14/20 13:03 Sodium Chloride 0.9% 10ml Syr (Rad Only) IV 01/14/20 13:03 10 ml ONCE ONE Administration ORDERS Category Date Time Status US gallbladder Stat Exams 01/14/20 13:39 Ordered XR chest portable Stat Exams 01/14/20 13:13 Taken Covid-19 Nasal PCR Sendout [place] Stat Lab 01/14/20 13:13 Received Urinalysis and Microscopic Stat Lab 01/14/20 13:11 Ordered - CT Data CT Scan: Abdomen, Pelvis Time Received: 13:[address] Reviewed: Yes: I have viewed the radiologist's interpretation Findings Narrative: PROCEDURE: CT ABDOMEN PELVIS W CON CLINICAL INDICATION: abdomen pain Right upper quadrant pain the COMPARISON: CT CT ABDOMEN PELVIS WO CON from 10/13/2018 TECHNIQUE: IV Contrast:
--- NOTE | 2020-01-14 13:13 | XR_ITS ---
PROCEDURE: XR CHEST PORTABLE CLINICAL HISTORY: cough, covid exposure COMPARISON: CR CXR2V XR chest 2V from 04/14/2017 CR CXR2V XR chest 2V from 04/12/2018 CR XR CHEST PORTABLE from 12/07/2019 FINDINGS: The cardiomediastinal silhouette and pulmonary vascularity are within normal limits. The lungs are clear without infiltrates, suspicious nodules, or pleural effusions. No acute bony abnormalities. IMPRESSION: No acute findings. Dictated by: Robles Fatima MD 01/14/2020 15:07 Robles Fatima MD in [place] 01/14/2020 15:07
--- NOTE | 2020-01-14 13:39 | US_ITS ---
PROCEDURE: US GALLBLADDER CLINICAL INDICATION: RUQ pain COMPARISON: No exams were available for comparison FINDINGS: Pancreas: Unremarkable/Not well seen Liver: Unremarkable. There is appropriate direction of blood flow within a non dilated portal vein. Right kidney: Unremarkable appearing. No hydronephrosis. Gallbladder: No stones are evident. There is no gallbladder wall thickening. Common duct is normal in diameter. IMPRESSION: Negative gallbladder ultrasound. No stones evident. Dictated by: Robles Fatima MD 01/14/2020 15:00 Robles Fatima MD in [place] 01/14/2020 15:00
[2020-01-14 14:47] VITALS: BP 108/52; PULSE 77; RESP 20; TEMP 36.6; O2SAT 98
[2020-01-15 15:53] LABS: Covid-19 Nasal PCR Sendout Lex Not Detected
== END 2020-01-14 14:49 | disposition home or self-care (01) ==
PROVIDERS: Emergency Provider Emergency Medicine
DX: Z20.828 Contact with and (suspected) exposure to other viral communicable diseases (principal); J06.9 Acute upper respiratory infection, unspecified; K21.9 Gastro-esophageal reflux disease without esophagitis; M94.0 Chondrocostal junction syndrome [Tietze]; F41.9 Anxiety disorder, unspecified; F17.210 Nicotine dependence, cigarettes, uncomplicated; Z88.5 Allergy status to narcotic agent
CPT/HCPCS: 71045; 74177; 76705; 80053; 82150; 83690; 85025; 99283; Q9967; U0004

== ENCOUNTER 2020-02-21 09:49 | Emergency (ER) | payer BC, OTHER, SELFPAY ==
[2020-02-21 09:50] VITALS: BP 128/86; PULSE 112; RESP 18; TEMP 36.6; O2SAT 98; BMI 25.8
--- NOTE | 2020-02-21 09:55 | HMH.EDGENADL ---
ED Disposition Clinical Impression: Kidney stone on left side Disposition: Home, Self-Care Condition on Discharge: Fair Additional Instructions: Take Flomax as prescribed. Please drink plenty of clear fluids. Strain urine and try to catch stone as it may be useful in follow-up appointments for analysis. Return immediately to our emergency department if fever/chills, systemic signs of illness, increased pain, intractable nausea/vomiting, or other new concerning symptoms. Prescriptions: Tamsulosin HCl 0.4 mg PO DAILY #5 cap Transmission Status: Pending to [id number] Referrals: PCP,No [Primary Care Provider] - - Critical Care Critical Care Time: No Attestation: On , the high probability of a clinically significant, sudden or life threatening deterioration of the following system(s) required my full and direct attention, intervention and personal management. The time I documented below is in addition to time spent performing reported procedures but includes the following listed in this critical care notation. Medical Decision Making - Medical Records Medical records reviewed: Yes: I reviewed the patient's medical records. - Mario Inquiry Pt receiving controlled substance: No Vital Signs: 02/21/20 09:50 02/21/20 10:59 Temperature 98 F Temperature Source Oral Pulse Rate [Radial] 112 H 89 Respiratory Rate 18 18 Blood Pressure [Right Arm] 128/86 120/80 Blood Pressure Mean [Right Arm] 100 93 Blood Pressure Source [Right Arm] Automatic Cuff Blood Pressure Position [Right Arm] Sitting Sitting 02 Sat by Pulse Oximetry 98 97 Oxygen Delivery Method Room Air - Lab Data Lab Results 02/21/20 09:50: Urine Color Yellow, Urine Appearance Clear, Urine pH 6.0, Ur Specific [place] 1.025, Urine Protein Negative, Urine Glucose (UA) Negative, Urine Ketones Negative, Urine Blood 3+, Urine Nitrate Negative, Urine Bilirubin 1+ A, Urine Urobilinogen 1.0, Ur Leukocyte Esterase Negative, Urine RBC 10-20, Urine WBC 3-5, Ur Squamous Epith Cells 3-5, Urine Bacteria Trace 02/21/20 10:05: WBC 5.6, RBC 5.67, Hgb 17.6, Hct 53.3 H, MCV 94.0, MCH 31.0, MCHC 33.0, RDW 13.1, Plt Count 275, MPV 7.2 L, Neut % (Auto) 61.8, Lymph % (Auto) 27.8, [place] % (Auto) 6.3, Eos % (Auto) 3.5, Baso % (Auto) 0.6, Neut # (Auto) 3.5, Lymph # (Auto) 1.6, [place] # (Auto) 0.4, Eos # (Auto) 0.2, Baso # (Auto) 0.0 02/21/20 10:05: Sodium 138, Potassium 4.1, Chloride 104, Carbon Dioxide 28, Anion Gap 10.1, BUN 17, Creatinine 1.20, Estimated Creat Clear 98, Estimated GFR 71, Est GFR ( Amer) 86, Glucose 121 H, Calcium 9.7, Total Bilirubin 0.9, AST 33, ALT 26, Alkaline Phosphatase 90, Total Protein 7.8, Albumin 4.5, Globulin 3.3 H, Albumin/Globulin Ratio 1.4 02/21/20 10:05: Lipase 71 Result diagrams: 02/21/20 10:05 02/21/20 10:05 Orders (Tests/Meds): ED MEDICATIONS Discontinued Medications Generic Name Dose Route Start Last Admin Trade Name [place] PRN Reason Stop Dose Admin Lactated Ringer's 1,000 mls @ 999 mls/hr 02/21/20 10:15 02/21/20 10:09 Lactated Ringer's 1000 Ml Bag IV 02/21/20 11:15 999 mls/hr .Q1H1M STEPHEN Administration Lactated Ringer's 1,000 mls @ 999 mls/hr 02/21/20 11:45 02/21/20 11:43 Lactated Ringer's 1000 Ml Bag IV 02/21/20 12:45 999 mls/hr .Q1H1M STEPHEN Administration Ketorolac Tromethamine 15 mg 02/21/20 10:01 02/21/20 10:09 Ketorolac 30mg/Ml Vial IV 02/21/20 10:02 15 mg ONCE ONE Administration Morphine Sulfate 4 mg 02/21/20 11:18 02/21/20 11:22 Morphine 4mg/Ml Syringe IV 02/21/20 11:19 4 mg ONCE ONE Administration Ondansetron HCl 4 mg 02/21/20 10:01 02/21/20 10:09 Ondansetron 4mg/2ml Vial IV 02/21/20 10:02 4 mg ONCE ONE Administration Medical Decision Narrative: Patient presents with left flank pain. He does have history of kidney stones recently diagnosed on imaging. He states he has passed stones up to 8 mm in size in the past but is never required any urologic
[2020-02-21 10:06] LABS: Microscopic, Urine URINE MICROSCOPIC (MICROSCOPIC)
[2020-02-21 10:07] LABS: Appearance,Urine CLEAR (Clear); Blood, Urine 3+ (Negative); Color,Urine YELLOW (Yellow); Glucose,Urine (UA) Negative (Negative); Ketones,Urine Negative (Negative); Leukocyte Esterase,Urine Negative (Negative); Nitrate,Urine Negative (Negative); Protein,Urine Negative (Negative); Specific Gravity, Urine 1.025 (1.005-1.030)
[2020-02-21 10:12] LABS: Bilirubin,Urine 1+ (Negative)
--- NOTE | 2020-02-21 10:15 | CT_ITS ---
PROCEDURE: CT ABDOMEN PELVIS WO CON CLINICAL INDICATION: Renal colic, L sided w/ history of 8+ mm stones COMPARISON: CT CT ABDOMEN PELVIS W CON from 01/14/2020 TECHNIQUE: Axial images obtained with sagittal and coronal reformats. All CT scans at the facility use one or more dose reduction, viz: automated exposure control, ma/kV adjustment per patient size (including targeted exams where dose is matched to indication, i.e. head), or iterative reconstruction technique. FINDINGS: LOWER THORAX: Minimal atelectatic changes in the lung bases. ABDOMEN & PELVIS: The liver, spleen, adrenal glands, and pancreas have an unremarkable appearance. There are punctate right renal calculi. A 3 mm stone is present at the left ureterovesical junction causing mild left-sided hydronephrosis and hydroureter. No intestinal obstruction or free air. No evidence of appendicitis. No pelvic mass or abnormal fluid collection. No acute bony findings. IMPRESSION: 3 mm left ureterovesical junction stone with mild left-sided obstructive uropathy. Right nephrolithiasis Dictated by: Robles Fatima MD 02/21/2020 11:00 Robles Fatima MD in [place] 02/21/2020 11:00
[2020-02-21 10:22] LABS: Basophils % 0.6 % (0.1-2.0); Eosinophils # 0.2 K/mm3 (0.0-0.4); Eosinophils % 3.5 % (0.1-12.0); Hematocrit 53.3 % (42.0-52.0); Hemoglobin 17.6 g/dL (14.1-18.0); Lymphocytes # 1.6 K/mm3 (0.7-4.5); Lymphocytes % 27.8 % (10-50); Mean Platelet Volume 7.2 fl (7.4-10.4); Monocytes # 0.4 K/mm3 (0.1-1.0); Monocytes % 6.3 % (1.7-9.3); Neutrophils # 3.5 K/mm3 (1.8-7.8); Neutrophils % 61.8 % (37.0-80.0); Platelet Count 275 K/mm3 (142-424); Red Blood Count 5.67 M/mm3 (4.60-6.20); Red Cell Distribution Width 13.1 % (11.5-17.5); White Blood Count 5.6 K/mm3 (4.8-10.8)
[2020-02-21 10:27] LABS: Bacteria,Urine Trace /lpf
[2020-02-21 10:32] LABS: Alanine Aminotransferase 26 U/L (12-78); Albumin Level 4.5 g/dl (3.5-5.0); Albumin/Globulin Ratio 1.4 (1.1-1.8); Alkaline Phosphatase 90 U/L (38-126); Anion Gap 10.1 mEq/L (5-15); Aspartate Amino Transferase 33 U/L (17-59); Bilirubin,Total 0.9 mg/dl (0.2-1.3); Blood Urea Nitrogen 17 mg/dl (9-20); Calcium 9.7 mg/dl (8.4-10.2); Carbon Dioxide 28 mmol/L (22.0-30.0); Chloride 104 mmol/L (98-107); Creatinine Clearance Estimated 98 mL/min (50-200); Estimated Glomerular Filt Rate 71 ml/min (>60); GFR (African American) 86 ML/MIN (>60); Globulin 3.3 g/dL (1.3-3.2); Glucose 121 mg/dl (74-100); Lipase 71 U/L (23-300); Potassium 4.1 mmoL/L (3.5-5.1); Sodium 138 mmol/L (136-145); Total Protein,Serum 7.8 g/dl (6.3-8.2)
[2020-02-21 10:59] VITALS: BP 120/80; PULSE 89; RESP 18; O2SAT 97
--- NOTE | 2020-02-21 12:00 | PC.NURSE ---
PT STATES PAIN IMPROVING. UPDATED ON PLAN OF CARE
[2020-02-21 13:01] VITALS: BP 117/84; PULSE 78; RESP 16; TEMP 36.6; O2SAT 98
== END 2020-02-21 13:05 | disposition home or self-care (01) ==
PROVIDERS: Emergency Provider Emergency Medicine
DX: N20.0 Calculus of kidney (principal); Z87.442 Personal history of urinary calculi; K21.9 Gastro-esophageal reflux disease without esophagitis; F41.9 Anxiety disorder, unspecified; F17.210 Nicotine dependence, cigarettes, uncomplicated
CPT/HCPCS: 74176; 80053; 81001; 83690; 85025; 96365; 96367; 96375; 99283; J2405

== ENCOUNTER 2020-04-26 15:56 | Emergency (ER) | payer BC, OTHER, SELFPAY ==
[2020-04-26 16:37] VITALS: BP 135/86; PULSE 98; RESP 16; TEMP 36.6; O2SAT 100; BMI 24.3
[2020-04-26 16:44] VITALS: BP 114/70; PULSE 64; RESP 16; TEMP 36.6; O2SAT 100; BMI 29.2
--- NOTE | 2020-04-26 16:52 | HMH.EDUTC ---
[facility] [place] Clinical Impression: Viral syndrome, Exposure to COVID-19 virus Acute bronchitis Qualifiers: Bronchitis organism: unspecified organism Qualified Code(s): J20.9 - Acute bronchitis, unspecified Disposition: Home, Self-Care Condition on Discharge: Good Instructions: DI for Acute Bronchitis, Preventing the Spread of Coronavirus Discharge Instructions Additional Instructions: Drink plenty of fluids. Take tylenol for pain or fever. Return if you begin to have difficulty breathing. Follow up with your regular doctor. GO TO THE ER FOR ANY WORSENING SYMPTOMS Prescriptions: Benzonatate [Tessalon Perle 100mg Cap] 100 mg PO TIDP PRN #30 cap PRN Reason: Cough Transmission Status: Received by [id number] Azithromycin [Z-Zuhair 250mg Tab*] 250 mg PO UD DOSE PK #6 tab Transmission Status: Received by [id number] Referrals: PCP,No [Primary Care Provider] - Forms: Work/School Release Time of Disposition: 16:55 Medical Decision Making - Medical Records Medical records reviewed: No: I reviewed the patient's medical records. - Mario Inquiry Pt receiving controlled substance: No Vital Signs: 04/26/20 16:37 04/26/20 16:44 04/26/20 17:17 Temperature 98 F 98 F 98 F Temperature Source Tympanic Tympanic Pulse Rate 99 H Pulse Rate [Right] 98 H 64 Respiratory Rate 16 16 16 Blood Pressure 130/82 Blood Pressure [Right Arm] 135/86 114/70 Blood Pressure Mean [Right Arm] 102 84 Blood Pressure Source [Right Arm] Automatic Cuff Automatic Cuff Blood Pressure Position [Right Arm] Sitting Sitting 02 Sat by Pulse Oximetry 100 100 Oxygen Delivery Method Room Air Room Air Orders (Tests/Meds): ORDERS Category Date Time Status Covid-19 Nasal PCR ([facility]) Routine Lab 04/26/20 16:30 Received [facility] [place] - General Stated complaint: covid test Time Seen by Provider: 04/26/20 16:52 Mode of Arrival: Ambulatory Source of Information: Patient Limitations: No Limitations Description of Symptoms (Recalled from Triage Doc. by RN): SOA, LOMBARDI, COUGH AND DIARHEA. DIRECTLY EXPOSED TO COVID. HEENT Symptoms (Recalled from RN notes): Yes (LOMBARDI) Resp Symptoms (Recalled from RN notes): Yes (SOA AND COUGH) Skin Symptoms (Recalled from RN notes): No MS Symptoms (Recalled from RN notes): No Functional Status (Recalled from RN notes): NA - History of Present Illness Provider Complaint: He states that for the past 2 days he has had body aches, sore throat, cough and chest congestion. - Related Data Previous Rx's Medication Instructions Recorded Brompheniramine/Pseudoephed/Dm 10 ml PO Q46H PRN #150 ml 03/14/19 [Bromfed Dm Cough Syrup] Ondansetron [Zofran 4mg ODT] 4 mg PO Q8HP PRN #20 tab.rapdis 03/14/19 Oseltamivir Phosphate [Tamiflu 75 mg PO BID #10 cap 03/14/19 75mg Capsule] Ibuprofen [Ibuprofen 800mg 800 mg PO TIDP PRN #20 tab 12/07/19 Tablet] Tamsulosin HCl 0.4 mg PO DAILY #5 cap 02/21/20 Azithromycin [Z-Zuhair 250mg Tab*] 250 mg PO UD DOSE PK #6 tab 04/26/20 Benzonatate [Tessalon Perle 100mg 100 mg PO TIDP PRN #30 cap 04/26/20 Cap] Allergies Allergy/AdvReac Type Severity Reaction Status Date / Time codeine [CODEINE] Allergy Unknown nausea & Verified 04/26/20 16:48 swelling - Worker's Comp Is this a Worker's Comp case?: No [facility] History - Hepatitis A Screen Drug use history?: No High risk sexual behaviors?: No History of sexually transmitted infection?: No Currently employed?: No Childcare worker?: No Do you have indoor plumbing?: Yes Do you have electricity?: Yes Attestation statement:: This patient has been screened for Hepatitis A risk factors. I have reviewed the patient's past medical history: Yes Medical History: Reports:: Anxiety, Gastroesophageal Reflux Disease(GERD), Kidney Stones Denies:: Asthma, Cancer, Chronic Obstructive Pulmonary Disease (COPD), Diabetes Mellitus Type 1, Diabetes Mellitus Type 2, Gastrointestinal Bleed,
[2020-04-26 17:17] VITALS: BP 130/82; PULSE 99; RESP 16; TEMP 36.6
== END 2020-04-26 17:17 | disposition home or self-care (01) ==
PROVIDERS: Emergency Provider Nurse Practitioner Family
DX: Z20.822 Contact with and (suspected) exposure to COVID-19 (principal); B34.9 Viral infection, unspecified; J20.9 Acute bronchitis, unspecified; K21.9 Gastro-esophageal reflux disease without esophagitis; F41.9 Anxiety disorder, unspecified; Z87.442 Personal history of urinary calculi; F17.210 Nicotine dependence, cigarettes, uncomplicated
CPT/HCPCS: 99202; G0463; U0003

== ENCOUNTER 2020-06-16 14:54 | Emergency (ER) | payer BC, OTHER, SELFPAY ==
[2020-06-16 14:55] VITALS: BP 143/91; PULSE 78; RESP 20; TEMP 36.9; O2SAT 99; BMI 25.8
[2020-06-16 15:13] VITALS: BP 143/91; PULSE 78; RESP 20; TEMP 36.9; O2SAT 99
--- NOTE | 2020-06-16 15:13 | PC.NURSE ---
PATIENT LEFT WITHOUT BEING SEEN. STATES HE HAD TO GO BUT IS COMING BACK LATER.
== END 2020-06-16 15:14 | disposition left against medical advice (07) ==
LOC: UTC 14:56
PROVIDERS: Emergency Provider Nurse Practitioner Family
DX: Z53.21 Procedure and treatment not carried out due to patient leaving prior to being seen by health care provider (principal)

== ENCOUNTER 2020-06-16 15:47 | Emergency (ER) | payer BC, OTHER, SELFPAY ==
[2020-06-16 16:30] VITALS: BP 134/89; PULSE 71; RESP 16; TEMP 37; O2SAT 99; BMI 25.9
--- NOTE | 2020-06-16 16:43 | HMH.EDUTC ---
[facility] [place] Clinical Impression: Dental abscess Otitis media Qualifiers: Otitis media type: suppurative Chronicity: acute Laterality: right Recurrence: non-recurrent Spontaneous tympanic membrane rupture: without spontaneous rupture Qualified Code(s): H66.001 - Acute suppurative otitis media without spontaneous rupture of ear drum, right ear Disposition: Home, Self-Care Condition on Discharge: Good Instructions: Middle Ear Infection, DI for Tooth Abscess Additional Instructions: Drink plenty of fluids. Follow up with a dentist. Take the ibuprofen that we prescribed for pain. Follow up with your regular doctor. GO TO THE ER FOR ANY WORSENING SYMPTOMS Prescriptions: Ibuprofen [Ibuprofen 800mg Tablet] 800 mg PO Q8HP PRN #30 tab PRN Reason: Moderate Pain Transmission Status: Received by [id number] Amoxicillin/Potassium Clav [Augmentin 875-125 Tablet] 1 tab PO Q12H 10 Days #20 tab Transmission Status: Received by [id number] Referrals: Provider,Referral, MD [Primary Care Provider] - Time of Disposition: 16:48 Medical Decision Making - Medical Records Medical records reviewed: No: I reviewed the patient's medical records. - Mario Inquiry Pt receiving controlled substance: No Vital Signs: 06/16/20 16:30 06/16/20 16:52 Temperature 98.6 F 98.6 F Temperature Source Oral Pulse Rate 71 Pulse Rate [Right Brachial] 71 Respiratory Rate 16 16 Blood Pressure 134/89 Blood Pressure [Right Arm] 134/89 Blood Pressure Mean [Right Arm] 104 Blood Pressure Source [Right Arm] Automatic Cuff Blood Pressure Position [Right Arm] Sitting 02 Sat by Pulse Oximetry 99 Oxygen Delivery Method Room Air Orders (Tests/Meds): ED MEDICATIONS Discontinued Medications Generic Name Dose Route Start Last Admin Trade Name Freq PRN Reason Stop Dose Admin Benzocaine/Butamben/Tetracaine HCl 1 gm 06/16/20 16:47 06/16/20 16:49 Tetracaine/Benzocaine/Butamben 56 Gm [place] TP 06/16/20 16:48 1 gm ONCE ONE Administration Lidocaine HCl 15 ml 06/16/20 16:47 06/16/20 16:50 Lidocaine 2% Viscous Bertha 15ml Udc PO 06/16/20 16:48 15 ml ONCE ONE Administration [facility] [place] - General Stated complaint: Pain in Right side of Head Time Seen by Provider: 06/16/20 16:43 - History of Present Illness Provider Complaint: He states that for the past 4 days, he has had right jaw and ear pain. He has a tooth that has broke in the top back of his right jaw that he thinks that is causing this. - Related Data Home Medications Medication Instructions Recorded Confirmed Tamsulosin HCl 0.4 mg PO DAILY 06/16/20 06/16/20 Previous Rx's Medication Instructions Recorded Amoxicillin/Potassium Clav 1 tab PO Q12H 10 Days #20 tab 06/16/20 [Augmentin 875-125 Tablet] Ibuprofen [Ibuprofen 800mg 800 mg PO Q8HP PRN #30 tab 06/16/20 Tablet] Allergies Allergy/AdvReac Type Severity Reaction Status Date / Time codeine [CODEINE] Allergy Unknown nausea & Verified 04/26/20 16:48 swelling [facility] History - Hepatitis A Screen Attestation statement:: This patient has been screened for Hepatitis A risk factors. I have reviewed the patient's past medical history: Yes Medical History: Reports:: Anxiety, Gastroesophageal Reflux Disease(GERD), Kidney Stones Denies:: Asthma, Cancer, Chronic Obstructive Pulmonary Disease (COPD), Diabetes Mellitus Type 1, Diabetes Mellitus Type 2, Gastrointestinal Bleed, Hypertension, MRSA Other Medical History: Reports: Arthritis (Psoriatic arthritis) Laterality Cases: Right: Other Other Surgeries: Yes: No Previous Surgery Amputation: No Fractures: Yes (FOOT) - Social History Smoking Status: Current every day smoker Tobacco Type: cigarettes # Packs/Day (cigarettes): 1 #Yrs smoked (if former smoker): 3 Alcohol Intake: never Alcohol Intake Frequency:: a few times a month Occupational Status: other Housing: house Household Mem
[2020-06-16 16:52] VITALS: BP 134/89; PULSE 71; RESP 16; TEMP 37; O2SAT 99
== END 2020-06-16 16:56 | disposition home or self-care (01) ==
PROVIDERS: Emergency Provider Nurse Practitioner Family
DX: K04.7 Periapical abscess without sinus (principal); H66.001 Acute suppurative otitis media without spontaneous rupture of ear drum, right ear; K21.9 Gastro-esophageal reflux disease without esophagitis; F41.9 Anxiety disorder, unspecified; Z87.442 Personal history of urinary calculi; F17.210 Nicotine dependence, cigarettes, uncomplicated
CPT/HCPCS: 99202; G0463

== ENCOUNTER 2020-07-03 19:08 | Emergency (ER) | payer BC, OTHER, SELFPAY ==
[2020-07-03] VITALS (8 sets, daily range): BP systolic 120–141; BP diastolic 84–89; PULSE 68–88; RESP 16–24; TEMP 36.7–36.8; O2SAT 97–100; BMI 25.8
--- NOTE | 2020-07-03 19:12 | ECG_ITS ---
APPROVED REPORT Exam: Resting ECG HR:82 bpm ECG Measurements Heart Rate 82 AXES MO 124 P 67 QRSd 80 QRS 96 QT 352 T 33 QTc 411 Conclusion Normal sinus rhythm Rightward axis Borderline ECG Electronically signed by : Landon Fowler, 07/05/2020 07:10:32
--- NOTE | 2020-07-03 19:22 | CT_ITS ---
PROCEDURE INFORMATION: Exam: CT Neck With Contrast Exam date and time: 07/03/2020 7:22 PM Age: 29 years old Clinical indication: Mass, lump, or swelling in neck; Patient HX: Swelling of lymph nodes right side of neck, bilat neck pain under ears; Additional info: Swelling, lymphnodes right side neck TECHNIQUE: Imaging protocol: Computed tomography images of the neck with contrast. Radiation optimization: All CT scans at this facility use at least one of these dose optimization techniques: automated exposure control; mA and/or kV adjustment per patient size (includes targeted exams where dose is matched to clinical indication); or iterative reconstruction. Contrast material: ISOVUE; Contrast volume: 75 ml; Contrast route: IV; COMPARISON: No relevant prior studies available. FINDINGS: Nasopharynx: Unremarkable. Oropharynx: Unremarkable. No significant tonsillar enlargement. Hypopharynx: Unremarkable. Larynx: Unremarkable. Normal epiglottis. Retropharyngeal space: Unremarkable. Submandibular/Parotid glands: Mild enlargement of the right submandibular gland as compared to the left. Thyroid: Normal. No enlarged or calcified nodules. Lymph nodes: Bilateral cervical chain lymph nodes, more numerous on the left, likely reactive. Trachea: Visualized trachea is unremarkable. Lungs: Unremarkable as visualized. Bones/joints: No acute fracture. Mild degenerative changes. Uncinate process and facet hypertrophy, greatest at C5-C6, where there is [id number] left neural foraminal narrowing. Soft tissues: Unremarkable. No significant soft tissue swelling. IMPRESSION: 1. No acute findings. 2. Mild enlargement of the right submandibular gland as compared to the left.
--- NOTE | 2020-07-03 19:23 | XR_ITS ---
PROCEDURE INFORMATION: Exam: XR Chest Exam date and time: 07/03/2020 7:23 PM Age: 29 years old Clinical indication: Left-sided; Patient HX: Smoker, left sided chest pain TECHNIQUE: Imaging protocol: XR of the chest. Views: 1 view. COMPARISON: CR XR CHEST PORTABLE 01/14/2020 1:35 PM FINDINGS: Lungs: No consolidation. Possible calcified granuloma in the lateral left lung. Pleural spaces: Unremarkable. No pleural effusion. No pneumothorax. Heart/Mediastinum: Unremarkable. No cardiomegaly. Bones/joints: Unremarkable. IMPRESSION: No acute findings.
[2020-07-03 19:33] LABS: Basophils # 0.1 K/mm3 (0-0.2); Eosinophils # 0.2 K/mm3 (0.0-0.4); Hematocrit 49.9 % (42.0-52.0); Hemoglobin 17.3 g/dL (14.1-18.0); Lymphocytes # 1.6 K/mm3 (0.7-4.5); Lymphocytes % 25.6 % (10-50); Mean Corpuscular HGB Conc 34.6 g/dL (31.8-35.4); Mean Corpuscular Hemoglobin 30.9 pg (27.0-31.2); Mean Corpuscular Volume 89.4 fl (80-94); Mean Platelet Volume 7.3 fl (7.4-10.4); Monocytes # 0.4 K/mm3 (0.1-1.0); Monocytes % 6.5 % (1.7-9.3); Neutrophils # 4.1 K/mm3 (1.8-7.8); Neutrophils % 63.8 % (37.0-80.0); Platelet Count 272 K/mm3 (142-424); Red Blood Count 5.59 M/mm3 (4.60-6.20); White Blood Count 6.4 K/mm3 (4.8-10.8)
[2020-07-03 19:36] LABS: Chloride 107 mmol/L (98-107); Sodium 140 mmol/L (136-145)
[2020-07-03 19:39] LABS: Alanine Aminotransferase 23 U/L (12-78); Albumin Level 4.6 g/dl (3.5-5.0); Albumin/Globulin Ratio 1.5 (1.1-1.8); Alkaline Phosphatase 95 U/L (38-126); Aspartate Amino Transferase 30 U/L (17-59); Bilirubin,Total 0.6 mg/dl (0.2-1.3); Blood Urea Nitrogen 12 mg/dl (9-20); Calcium 9.1 mg/dl (8.4-10.2); Carbon Dioxide 25 mmol/L (22.0-30.0); Creatinine Clearance Estimated 118 mL/min (50-200); Estimated Glomerular Filt Rate 88 ml/min (>60); GFR (African American) 106 ML/MIN (>60); Globulin 3.1 g/dL (1.3-3.2); Glucose 91 mg/dl (74-100); Magnesium 2.2 mg/dl (1.6-2.3); Total Protein,Serum 7.7 g/dl (6.3-8.2)
--- NOTE | 2020-07-03 19:41 | HMH.EDCP ---
ED Disposition Clinical Impression: GERD (gastroesophageal reflux disease) Disposition: Still a Patient Condition on Discharge: Good Referrals: Provider,Referral, [Primary Care Provider] - - Critical Care Critical Care Time: No Attestation: On 07/03/20, the high probability of a clinically significant, sudden or life threatening deterioration of the following system(s) required my full and direct attention, intervention and personal management. The time I documented below is in addition to time spent performing reported procedures but includes the following listed in this critical care notation. Medical Decision Making - Medical Records Medical records reviewed: Yes: I reviewed the patient's medical records. - Mario Inquiry Pt receiving controlled substance: No Vital Signs: 07/03/20 19:10 Temperature 98.3 F Temperature Source Oral Pulse Rate [Apical] 88 Respiratory Rate 16 Blood Pressure [Right Arm] 128/89 Blood Pressure Mean [Right Arm] 102 Blood Pressure Source [Right Arm] Automatic Cuff Blood Pressure Position [Right Arm] Sitting 02 Sat by Pulse Oximetry 100 Oxygen Delivery Method Room Air - Lab Data Lab Results 07/03/20 19:21: WBC 6.4, RBC 5.59, Hgb 17.3, Hct 49.9, MCV 89.4, MCH 30.9, MCHC 34.6, RDW 13.0, Plt Count 272, MPV 7.3 L, Neut % (Auto) 63.8, Lymph % (Auto) 25.6, [place] % (Auto) 6.5, Eos % (Auto) 3.0, Baso % (Auto) 1.0, Neut # (Auto) 4.1, Lymph # (Auto) 1.6, [place] # (Auto) 0.4, Eos # (Auto) 0.2, Baso # (Auto) 0.1 Result diagrams: 07/03/20 19:21 Orders (Tests/Meds): ED MEDICATIONS Generic Name Dose Route Start Last Admin Trade Name Freq PRN Reason Stop Dose Admin Sodium Chloride 1,000 mls @ 999 mls/hr 07/03/20 19:30 Sod Chlor 0.9% 1000ml Bag IV 07/03/20 20:30 .Q1H1M STEPHEN ORDERS Category Date Time Status CT soft tissue neck w con Stat Cat Scan 07/03/20 19:22 Ordered CXR --portable [XR chest portable] Stat Exams 07/03/20 19:23 Ordered Comprehensive Metabolic Panel Stat Lab 07/03/20 19:21 Received Magnesium Stat Lab 07/03/20 19:21 Received Thyroid Stimulating Hormone Stat Lab 07/03/20 19:21 Received Troponin I Q3H Lab 07/03/20 22:30 Ordered Troponin I Q3H Lab 07/04/20 01:30 Ordered Troponin I Stat Lab 07/03/20 19:21 Received Medical Decision Narrative: 29-year-old male presents with multiple complaints. The chest pain is atypical for myocardial infarction and his heart score is 0. EKG was unremarkable for ischemic findings. He is PERC negative for pulmonary embolism and atypical presentation for aortic dissection. History and exam most consistent with GERD. He will need to be treated on outpatient basis as he has not been taking any medicines for this. He also has complaint of pain and swelling to the right side of his face. Though not appreciable, considering family history of cancer CT scan soft tissue of neck obtained. Dr. Hurst to follow-up on results and final disposition Chest Pain HPI - General Chief Complaint: Chest Pain Stated Complaint: pain in chest.heart burn Time Seen by Provider: 07/03/20 19:10 Mode of Arrival: Ambulatory Limitations: No Limitations Description of Symptoms (Recalled from ER Triage Doc. by RN): Pt arrives POV with multitude of complaints he says started several weeks ago . He c/o sharp intermittent left sided chest pain, non-productive cough, ear and jaw pain he believes to be an ear infection, heartburn, palpitations, N/V. He is not currently having chest pain at this time and states he came to ED tonight because he couldnt stand the heartburn anymore. He denies syncope. Denies fevers. Denies sore throat. Denies abd pain. Denies diarrhea. - History of Present Illness HPI narrative: 29-year-old male presents with multiple complaints. He is complaining of reflux for 6 weeks after eating. He has no current reflux or pain. He says that it radiates up into his chest when it happens. No nausea or vom
[2020-07-03 19:58] LABS: Troponin I < 0.01 ng/ml (0.00-0.034)
[2020-07-03 20:10] LABS: Thyroid Stimulating Hormone 0.69 uIU/mL (0.465-4.68)
[2020-07-03 22:15] LABS: Troponin I < 0.01 ng/ml (0.00-0.034)
== END 2020-07-03 23:05 | disposition home or self-care (01) ==
PROVIDERS: Emergency Provider Emergency Medicine
DX: K21.00 Gastro-esophageal reflux disease with esophagitis, without bleeding (principal); F41.9 Anxiety disorder, unspecified; F17.210 Nicotine dependence, cigarettes, uncomplicated; Z88.5 Allergy status to narcotic agent
CPT/HCPCS: 70491; 71045; 80053; 83735; 84443; 84484; 85025; 93005; 96365; 96375; 99282; Q9967

== ENCOUNTER 2020-08-02 14:06 | Emergency (ER) | payer BC, OTHER, SELFPAY ==
[2020-08-02 14:06] VITALS: BP 129/85; PULSE 175; RESP 20; TEMP 37.1; O2SAT 98; BMI 26.6
[2020-08-02 14:20] VITALS: BP 110/73; BP 111/73; BP 122/84; PULSE 77; PULSE 78; PULSE 88
--- NOTE | 2020-08-02 14:23 | CT_ITS ---
PROCEDURE INFORMATION: Exam: CT Head Without Contrast Exam date and time: 08/02/2020 2:23 PM Age: 29 years old Clinical indication: Alteration of consciousness; Syncope and collapse; Patient HX: Patient felt really weak and almost passed out. ; Additional info: Cp/near syncope TECHNIQUE: Imaging protocol: Computed tomography of the head without contrast. Radiation optimization: All CT scans at this facility use at least one of these dose optimization techniques: automated exposure control; mA and/or kV adjustment per patient size (includes targeted exams where dose is matched to clinical indication); or iterative reconstruction. COMPARISON: CT SOFT TISSUE NECK W CON 07/03/2020 7:42 PM FINDINGS: Brain: Normal. No hemorrhage. Unremarkable white matter. No mass effect. Cerebral ventricles: No ventriculomegaly. Paranasal sinuses: Visualized sinuses are unremarkable. No fluid levels. Mastoid air cells: Visualized mastoid air cells are well aerated. Bones/joints: Unremarkable. No acute fracture. Soft tissues: Unremarkable. IMPRESSION: No acute intracranial abnormality.
--- NOTE | 2020-08-02 14:23 | XR_ITS ---
PROCEDURE INFORMATION: Exam: XR Chest Exam date and time: 08/02/2020 2:23 PM Age: 29 years old Clinical indication: Sternal or substernal pain; Patient HX: Chest pain, near syncopal episode. ; Additional info: Cp/near syncope TECHNIQUE: Imaging protocol: XR of the chest. Views: 1 view. COMPARISON: CR XR CHEST PORTABLE 07/03/2020 7:49 PM FINDINGS: Lungs: Unremarkable. No consolidation. Pleural spaces: Unremarkable. No pleural effusion. No pneumothorax. Heart/Mediastinum: Unremarkable. No cardiomegaly. Bones/joints: Unremarkable. IMPRESSION: No acute findings.
--- NOTE | 2020-08-02 14:26 | HMH.EDCP ---
ED Disposition Clinical Impression: Pre-syncope Disposition: Home, Self-Care Condition on Discharge: Good Referrals: Provider,Referral, [Primary Care Provider] - - Critical Care Critical Care Time: No Attestation: On 08/02/20, the high probability of a clinically significant, sudden or life threatening deterioration of the following system(s) required my full and direct attention, intervention and personal management. The time I documented below is in addition to time spent performing reported procedures but includes the following listed in this critical care notation. Medical Decision Making - Medical Records Medical records reviewed: Yes: I reviewed the patient's medical records. - Mario Inquiry Pt receiving controlled substance: No Vital Signs: 08/02/20 14:06 08/02/20 14:20 08/02/20 14:30 Temperature 98.8 F Temperature Source Oral Pulse Rate 96 H Pulse Rate [Left] 175 H Pulse Rate [Orthostatic Lying Left] 77 Pulse Rate [Orthostatic Sitting Left] 88 Pulse Rate [Orthostatic Standing Left] 78 Respiratory Rate 20 18 Blood Pressure 114/80 Blood Pressure [Orthostatic Lying Right Arm] 111/73 Blood Pressure [Orthostatic Sitting Right Arm] 122/84 Blood Pressure [Orthostatic Standing Right Arm] 110/73 Blood Pressure [Right Arm] 129/85 Blood Pressure Mean 91 Blood Pressure Mean [Right Arm] 99 Blood Pressure Source [Right Arm] Automatic Cuff Blood Pressure Position [Right Arm] Supine 02 Sat by Pulse Oximetry 98 98 Oxygen Delivery Method Room Air - Lab Data Lab results reviewed: Yes: I reviewed the patient's lab results. Lab Results 08/02/20 14:26: POC Glucose 94 08/02/20 14:55: WBC 8.7, RBC 5.24, Hgb 15.8, Hct 46.3, MCV 88.3, MCH 30.2, MCHC 34.2, RDW 13.2, Plt Count 233, MPV 7.5, Neut % (Auto) 76.9, Lymph % (Auto) 13.6, [place] % (Auto) 7.0, Eos % (Auto) 1.9, Baso % (Auto) 0.6, Neut # (Auto) 6.7, Lymph # (Auto) 1.2, [place] # (Auto) 0.6, Eos # (Auto) 0.2, Baso # (Auto) 0.1 08/02/20 14:55: Sodium 138, Potassium 3.6, Chloride 105, Carbon Dioxide 23, Anion Gap 13.6, BUN 12, Creatinine 1.00, Estimated Creat Clear 121, Estimated GFR 88, Est GFR ( Amer) 106, Glucose 97, Calcium 9.4, Magnesium 1.8, Total Bilirubin 0.9, AST 46, ALT 64, Alkaline Phosphatase 99, CK-MB (CK-2) 0.5, Troponin I < 0.01, NT-Pro-B Natriuret Pep 36.8, Total Protein 7.5, Albumin 4.6, Globulin 2.9, Albumin/Globulin Ratio 1.6 Result diagrams: 08/02/20 14:55 08/02/20 14:55 Orders (Tests/Meds): ED MEDICATIONS Discontinued Medications Generic Name Dose Route Start Last Admin Trade Name Freq PRN Reason Stop Dose Admin Sodium Chloride 1,000 mls @ 999 mls/hr 08/02/20 14:30 08/02/20 14:37 Sod Chlor 0.9% 1000ml Bag IV 08/02/20 15:30 999 mls/hr .Q1H1M STEPHEN Administration Sodium Chloride 1,000 mls @ 999 mls/hr 08/02/20 14:30 Sod Chlor 0.9% 1000ml Bag IV 08/02/20 15:30 .Q1H1M STEPHEN Ketorolac Tromethamine 30 mg 08/02/20 14:24 08/02/20 14:36 Ketorolac 30mg/Ml Vial IV 08/02/20 14:25 30 mg ONCE ONE Administration Orphenadrine Citrate 60 mg 08/02/20 14:24 08/02/20 14:37 Orphenadrine Citrate 60mg/2ml Vial IV 08/02/20 14:25 60 mg ONCE ONE Administration Promethazine HCl 12.5 mg 08/02/20 14:24 08/02/20 14:34 Promethazine Hcl 25mg/Ml 1ml Vial IV 08/02/20 14:25 12.5 mg ONCE ONE Administration Sodium Chloride 25 ml 08/02/20 14:24 Sodium Chloride 0.9% 25ml Bag IV 08/02/20 14:25 ONCE ONE ORDERS Category Date Time Status Drug Screen,Urine Stat Lab 08/02/20 14:23 Ordered Troponin I Q3H Lab 08/02/20 17:30 Ordered Troponin I Q3H Lab 08/02/20 20:30 Ordered Urinalysis and Microscopic Stat Lab 08/02/20 14:23 Ordered Venous Blood Gas Stat RT 08/02/20 14:23 Ordered - Radiology Data #1 Image(s): Chest Image Reviewed: Yes I reviewed the patient's radiology results Preliminary Findings: Normal/NAD - CT Data CT Scan: Head Time
--- NOTE | 2020-08-02 14:26 | PC.NURSE ---
FSBS 94
[2020-08-02 14:30] VITALS: BP 114/80; PULSE 96; RESP 18; O2SAT 98
--- NOTE | 2020-08-02 14:30 | PC.NURSE ---
patient to CT
[2020-08-02 14:33] LABS: POC Glucose,Bedside 94 (70-110)
--- NOTE | 2020-08-02 15:00 | ECG_ITS ---
APPROVED REPORT Exam: Resting ECG HR:82 bpm ECG Measurements Heart Rate 82 AXES MO 142 P 58 QRSd 78 QRS 85 QT 366 T 49 QTc 427 Conclusion Normal sinus rhythm Possible Left atrial enlargement Borderline ECG Electronically signed by : Landon Fowler, 08/02/2020 17:19:38
[2020-08-02 15:09] LABS: Basophils # 0.1 K/mm3 (0-0.2); Basophils % 0.6 % (0.1-2.0); Eosinophils # 0.2 K/mm3 (0.0-0.4); Eosinophils % 1.9 % (0.1-12.0); Hematocrit 46.3 % (42.0-52.0); Hemoglobin 15.8 g/dL (14.1-18.0); Lymphocytes # 1.2 K/mm3 (0.7-4.5); Lymphocytes % 13.6 % (10-50); Mean Corpuscular HGB Conc 34.2 g/dL (31.8-35.4); Mean Corpuscular Hemoglobin 30.2 pg (27.0-31.2); Mean Corpuscular Volume 88.3 fl (80-94); Mean Platelet Volume 7.5 fl (7.4-10.4); Monocytes # 0.6 K/mm3 (0.1-1.0); Neutrophils # 6.7 K/mm3 (1.8-7.8); Neutrophils % 76.9 % (37.0-80.0); Platelet Count 233 K/mm3 (142-424); Red Blood Count 5.24 M/mm3 (4.60-6.20); Red Cell Distribution Width 13.2 % (11.5-17.5); White Blood Count 8.7 K/mm3 (4.8-10.8)
[2020-08-02 15:23] LABS: Alanine Aminotransferase 64 U/L (12-78); Albumin Level 4.6 g/dl (3.5-5.0); Albumin/Globulin Ratio 1.6 (1.1-1.8); Alkaline Phosphatase 99 U/L (38-126); Anion Gap 13.6 mEq/L (5-15); Aspartate Amino Transferase 46 U/L (17-59); Bilirubin,Total 0.9 mg/dl (0.2-1.3); Blood Urea Nitrogen 12 mg/dl (9-20); Calcium 9.4 mg/dl (8.4-10.2); Carbon Dioxide 23 mmol/L (22.0-30.0); Chloride 105 mmol/L (98-107); Creatinine Clearance Estimated 121 mL/min (50-200); Estimated Glomerular Filt Rate 88 ml/min (>60); GFR (African American) 106 ML/MIN (>60); Globulin 2.9 g/dL (1.3-3.2); Glucose 97 mg/dl (74-100); Magnesium 1.8 mg/dl (1.6-2.3); Potassium 3.6 mmoL/L (3.5-5.1); Sodium 138 mmol/L (136-145); Total Protein,Serum 7.5 g/dl (6.3-8.2)
[2020-08-02 15:36] LABS: Creatine Kinase MB 0.5 ng/ml (0.0-2.03); NT Pro Brain Natriuretic Pep. 36.8 pg/mL (0-125)
[2020-08-02 15:37] LABS: Troponin I < 0.01 ng/ml (0.00-0.034)
[2020-08-02 15:43] LABS: VBG Base Excess -2.1 mmol/L (-2.4-2.3); VBG HCO3 21.3 mmol/L (23-30); VBG PCO2 28.4 mmol/L (35-51); VBG PH 7.49 mmol/L (7.31-7.41); VBG PO2 65.7 mmol/L (28-40); VBG Total CO2 22.1 mmol/L (23-27)
[2020-08-02 15:57] VITALS: BP 140/78; PULSE 78; RESP 16; TEMP 36.6; O2SAT 98
== END 2020-08-02 15:58 | disposition home or self-care (01) ==
PROVIDERS: Emergency Provider Emergency Medicine
DX: R55 Syncope and collapse (principal); R07.9 Chest pain, unspecified; K21.9 Gastro-esophageal reflux disease without esophagitis; F41.9 Anxiety disorder, unspecified; F17.210 Nicotine dependence, cigarettes, uncomplicated; Z87.442 Personal history of urinary calculi
CPT/HCPCS: 70450; 71045; 80053; 82553; 82803; 82962; 83735; 83880; 84484; 85025; 93005; 96365; 96375; 99282

== ENCOUNTER 2020-10-18 09:44 | Emergency (ER) | payer BC, SELFPAY ==
[2020-10-18 09:45] VITALS: BP 144/93; PULSE 102; RESP 19; TEMP 36.9; O2SAT 98; BMI 24.3
--- NOTE | 2020-10-18 10:24 | HMH.EDUTC ---
[facility] [place] Clinical Impression: COVID-19 virus test result unknown Acute bronchitis Qualifiers: Bronchitis organism: unspecified organism Qualified Code(s): J20.9 - Acute bronchitis, unspecified Disposition: Home, Self-Care Condition on Discharge: Good Instructions: DI for COVID-19 (Suspected or Confirmed ), COVID-19: Protecting Yourself When You're at High Risk, DI for Acute Bronchitis Additional Instructions: covid swab was sent to lab, call later today for results. self isolate until test results are known to be negative No sign of a bacterial infection. Likely viral. Viruses can take 7-14 days to run their course. Nasal saline and bulb syringe or nose Skylar to remove nasal drainage to help with nasal congestion. Hard to eat, drink, sleep with nasal congestion so important to keep this cleaned out. Monitor temp. Tylenol or Motrin as needed for pain or fever Encourage fluids, water, Gatorade, Powerade, Pedialyte if infant/toddler/child Warm salt water gargles Warm fluids Sore throat lozenges Sleep elevated Humidifier/vaporizer Follow-up immediately for new or worsening symptoms or no noticeable improvement over the next 48-72 hours. Prescriptions: predniSONE [Prednisone 20mg Tab] 20 mg PO BID #10 tab Transmission Status: Pending to [facility] Azithromycin [Zithromax 250mg tab] 250 mg PO DIRECTED #6 tab Transmission Status: Pending to [facility] Referrals: Provider,Referral, [Primary Care Provider] - Time of Disposition: 10:33 Medical Decision Making - Mario Inquiry Pt receiving controlled substance: No Vital Signs: 10/18/20 09:45 Temperature 98.4 F Temperature Source Oral Pulse Rate [Right Brachial] 102 H Respiratory Rate 19 Blood Pressure [Right Arm] 144/93 H Blood Pressure Mean [Right Arm] 110 Blood Pressure Source [Right Arm] Automatic Cuff Blood Pressure Position [Right Arm] Sitting 02 Sat by Pulse Oximetry 98 Oxygen Delivery Method Room Air Orders (Tests/Meds): ORDERS Category Date Time Status Covid-19 Nasal PCR ([facility]) Routine Lab 10/18/20 09:54 [place] [facility] [place] - General Chief complaint: [facility] Stated complaint: covid symtoms Time Seen by Provider: 10/18/20 10:25 Mode of Arrival: Ambulatory Source of Information: Patient Limitations: No Limitations Description of Symptoms (Recalled from Triage Doc. by RN): PATIENT C/O LOSS OF TASTE AND SMELL, COUGH, RUNNY NOSE AND CONGESTION X 2 DAYS. REQUESTING COVID TEST HEENT Symptoms (Recalled from RN notes): Yes Resp Symptoms (Recalled from RN notes): No Skin Symptoms (Recalled from RN notes): No MS Symptoms (Recalled from RN notes): No Functional Status (Recalled from RN notes): WNL - History of Present Illness Provider Complaint: 30 yr old male presents for loss of taste or smell, cough,fever,body aches, and soa for 2 days. - Related Data Previous Rx's Medication Instructions Recorded Omeprazole [Omeprazole 10mg Cap] 10 mg PO DAILY 14 Days #14 cap 07/03/20 Azithromycin [Zithromax 250mg 250 mg PO DIRECTED #6 tab 10/18/20 tab] predniSONE [Prednisone 20mg 20 mg PO BID #10 tab 10/18/20 Tab] Allergies Allergy/AdvReac Type Severity Reaction Status Date / Time codeine [CODEINE] Allergy Unknown nausea & Verified 04/26/20 16:48 swelling - Worker's Comp Is this a Worker's Comp case?: No [facility] History - Hepatitis A Screen Drug use history?: No High risk sexual behaviors?: No History of sexually transmitted infection?: No Currently employed?: No Childcare worker?: No Do you have indoor plumbing?: Yes Do you have electricity?: Yes Attestation statement:: This patient has been screened for Hepatitis A risk factors. I have reviewed the patient's past medical history: Yes Medical History: Reports:: Anxiety, Gastroesophageal Reflux Disease(GERD), Kidney Stones Denies:: Asthma, Cancer, Chronic Obstructive Pulmonary Disease (COPD), Diab
[2020-10-18 10:30] VITALS: BP 144/93; PULSE 102; RESP 19; TEMP 36.9; O2SAT 98
--- NOTE | 2020-10-19 09:01 | PC.NURSE ---
informed patient that he is positive
== END 2020-10-18 10:39 | disposition home or self-care (01) ==
PROVIDERS: Emergency Provider Nurse Practitioner Family
DX: U07.1 COVID-19 (principal)
CPT/HCPCS: 99202; G0463; U0003

== ENCOUNTER 2020-10-26 14:04 | Emergency (ER) | payer BC, SELFPAY ==
--- NOTE | 2020-10-26 14:02 | ECG_ITS ---
APPROVED REPORT Exam: Resting ECG HR:88 bpm ECG Measurements Heart Rate 88 AXES CA 116 P 72 QRSd 76 QRS 98 QT 352 T 15 QTc 425 Conclusion Normal sinus rhythm Left atrial abnormality New STTW changes in inferor leads Abnormal ECG Electronically signed by : Landon Fowler MD 10/28/2020 07:33:37
[2020-10-26 14:04] VITALS: BP 129/91; PULSE 101; RESP 13; TEMP 37.2; O2SAT 98; BMI 25.8
--- NOTE | 2020-10-26 14:19 | XR_ITS ---
PROCEDURE: XR CHEST PORTABLE CLINICAL HISTORY: soa, chest pain The COMPARISON: CR XR CHEST PORTABLE from 01/14/2020 CR XR CHEST PORTABLE from 07/03/2020 CR XR CHEST PORTABLE from 08/02/2020 FINDINGS: The cardiomediastinal silhouette and pulmonary vascularity are within normal limits. The lungs are clear without infiltrates, suspicious nodules, or pleural effusions. No acute bony abnormalities. IMPRESSION: No acute findings. Dictated by: Robles Fatima MD 10/26/2020 15:19 Robles Fatima MD in [place] 10/26/2020 15:19
[2020-10-26 14:28] LABS: Basophils # 0.1 K/mm3 (0-0.2); Basophils % 0.8 % (0.1-2.0); Eosinophils # 0.2 K/mm3 (0.0-0.4); Eosinophils % 2.3 % (0.1-12.0); Hematocrit 53.3 % (42.0-52.0); Lymphocytes # 2.2 K/mm3 (0.7-4.5); Lymphocytes % 27.8 % (10-50); Mean Corpuscular HGB Conc 34.1 g/dL (31.8-35.4); Mean Corpuscular Volume 93.6 fl (80-94); Mean Platelet Volume 6.9 fl (7.4-10.4); Monocytes # 0.6 K/mm3 (0.1-1.0); Monocytes % 7.4 % (1.7-9.3); Neutrophils % 61.7 % (37.0-80.0); Platelet Count 278 K/mm3 (142-424); Red Blood Count 5.69 M/mm3 (4.60-6.20); Red Cell Distribution Width 12.8 % (11.5-17.5); White Blood Count 8.1 K/mm3 (4.8-10.8)
[2020-10-26 14:29] LABS: Chloride 107 mmol/L (98-107); Potassium 4.1 mmoL/L (3.5-5.1); Sodium 142 mmol/L (136-145)
[2020-10-26 14:32] LABS: Anion Gap 13.1 mEq/L (5-15); Blood Urea Nitrogen 15 mg/dl (9-20); Carbon Dioxide 26 mmol/L (22.0-30.0); Creatinine Clearance Estimated 117 mL/min (50-200); Estimated Glomerular Filt Rate 87 ml/min (>60); GFR (African American) 105 ML/MIN (>60)
[2020-10-26 14:33] LABS: Calcium 9.1 mg/dl (8.4-10.2); Glucose 85 mg/dl (74-100)
[2020-10-26 14:41] LABS: Hemoglobin 18.2 g/dL (14.1-18.0)
[2020-10-26 14:59] LABS: Troponin I < 0.01 ng/ml (0.00-0.034)
[2020-10-26 15:00] VITALS: BP 137/94; PULSE 83; RESP 19; O2SAT 96
--- NOTE | 2020-10-26 15:01 | HMH.EDGENADL ---
ED Disposition Clinical Impression: COVID Chest pain Qualifiers: Chest pain type: other chest pain Qualified Code(s): R07.89 - Other chest pain Disposition: Home, Self-Care Condition on Discharge: Good Instructions: DI for Atypical Chest Pain, Coronavirus Disease 2019 Referrals: PCP,No [Non-Staff] - 3 days Time of Disposition: 15:07 - Critical Care Critical Care Time: No Attestation: On , the high probability of a clinically significant, sudden or life threatening deterioration of the following system(s) required my full and direct attention, intervention and personal management. The time I documented below is in addition to time spent performing reported procedures but includes the following listed in this critical care notation. Medical Decision Making - Mario Inquiry Pt receiving controlled substance: No Vital Signs: 10/26/20 14:04 Temperature 98.9 F Temperature Source Oral Pulse Rate [Left Radial] 101 H Respiratory Rate 13 Blood Pressure [Right Arm] 129/91 H Blood Pressure Mean [Right Arm] 103 Blood Pressure Source [Right Arm] Automatic Cuff Blood Pressure Position [Right Arm] Sitting 02 Sat by Pulse Oximetry 98 Oxygen Delivery Method Room Air - Lab Data Lab results reviewed: Yes: I reviewed the patient's lab results. Lab Results 10/26/20 14:00: WBC 8.1, RBC 5.69, Hgb 18.2 H, Hct 53.3 H, MCV 93.6, MCH 32.0 H, MCHC 34.1, RDW 12.8, Plt Count 278, MPV 6.9 L, Neut % (Auto) 61.7, Lymph % (Auto) 27.8, [place] % (Auto) 7.4, Eos % (Auto) 2.3, Baso % (Auto) 0.8, Neut # (Auto) 5.0, Lymph # (Auto) 2.2, [place] # (Auto) 0.6, Eos # (Auto) 0.2, Baso # (Auto) 0.1 10/26/20 14:00: Sodium 142, Potassium 4.1, Chloride 107, Carbon Dioxide 26, Anion Gap 13.1, BUN 15, Creatinine 1.00, Estimated Creat Clear 117, Estimated GFR 87, Est GFR ( Amer) 105, Glucose 85, Calcium 9.1, Troponin I < 0.01 Result diagrams: 10/26/20 14:00 10/26/20 14:00 Orders (Tests/Meds): ORDERS Category Date Time Status XR chest portable Stat Exams 10/26/20 14:19 Taken Troponin I Q3H Lab 10/26/20 17:30 Ordered Troponin I Q3H Lab 10/26/20 20:30 Ordered - Radiology Data #1 Image(s): Chest Image Reviewed: Yes I reviewed the patient's radiology image Preliminary Findings: Normal/NAD - ECG Data Tracing #1 I reviewed this ECG and interpreted as documented below: Normal sinus rhythm, 88 bpm, no significant ST elevation or depression. Inverted T waves in lead III, aVR. No ectopy. - BLADIMIR Score for Non-Stemi Age of Patient: 30-39 years old Heart Rate: 90-109 bpm Systolic Blood Pressure: 120-139 mmhg Serum Creatinine: 0.80-1.19 mg/dl CHF [place] Class: I-No CHF Other Risk Factors: None Non-Stemi Risk Score: 64 Medical Decision Narrative: 30yo M approximately 10 days out from testing positive for Covid. Patient no acute distress on initial evaluation. EKG is unremarkable as reviewed above. Troponin is normal. Chest x-ray is benign. Patient is appropriate stable for discharge home. He has been satting 9079 9% on room air throughout his observation the emergency department General Adult HPI - General Chief complaint: Chest Pain Stated complaint: Chest Pain Time Seen by Provider: 10/26/20 15:01 Mode of Arrival: Ambulatory Limitations: No Limitations Description of Symptoms (Recalled from ER Triage Doc. by RN): 10 days covid positive with soa and left sided chest pain for a few days - History of Present Illness HPI narrative: 30yo M presents to the emergency department secondary to chest pain. Patient test positive for Covid approximately 10 days ago. He complains of mild shortness of breath. Patient continues to smoke a pack per day. He denies any other chronic health issue. He denies fever, nausea/vomiting/diarrhea. - Related Data Previous Rx's Medication Instructions Recorded Omeprazole [Omeprazole 10mg Cap] 10 mg PO DAILY 14 Days #14 cap 07/03/20 Azithromycin [Zithromax 250mg 250 mg PO A
[2020-10-26 15:30] VITALS: BP 137/94; PULSE 89; RESP 17; TEMP 37.2; O2SAT 95
== END 2020-10-26 15:33 | disposition home or self-care (01) ==
PROVIDERS: Emergency Provider Family Medicine; PCP Family Medicine
DX: U07.1 COVID-19 (principal); R07.89 Other chest pain
CPT/HCPCS: 71045; 80048; 84484; 85025; 93005; 99282

== ENCOUNTER 2021-02-25 01:33 | Emergency (ER) | payer SELFPAY ==
[2021-02-25 01:37] VITALS: BP 138/85; PULSE 77; RESP 16; TEMP 36.8; O2SAT 98; BMI 24.3
--- NOTE | 2021-02-25 01:50 | CT_ITS ---
PROCEDURE INFORMATION: Exam: CT Maxillofacial With Contrast Exam date and time: 02/25/2021 1:50 AM Age: 30 years old Clinical indication: Patient HX: Right sided jaw pain, broken tooth; Additional info: Broken tooth and pain TECHNIQUE: Imaging protocol: Computed tomography images of the face with intravenous contrast. Radiation optimization: All CT scans at this facility use at least one of these dose optimization techniques: automated exposure control; mA and/or kV adjustment per patient size (includes targeted exams where dose is matched to clinical indication); or iterative reconstruction. Contrast material: ISOVUE; Contrast volume: 75 ml; Contrast route: IV; COMPARISON: CT HEAD/BRAIN WO CON 08/02/2020 2:31 PM FINDINGS: Orbital cavity: Orbits are normal. Globes are unremarkable. Bones/joints: Partial loss of #32. Loss of #1 and #16. No evidence of acute fracture. Paranasal sinuses: There is adequate aeration of the paranasal sinuses, mastoid sinuses, middle ear cavities, and external auditory canals. Soft tissues: There is no evidence of soft tissue swelling or abscess. No evidence of lymphadenopathy along the floor of the mouth. IMPRESSION: Loss of dentition, as described. There is no evidence of focal osseous destruction or overlying soft tissue swelling. Adequate aeration of the paranasal sinuses and mastoid sinuses.
[2021-02-25 02:27] LABS: Chloride 104 mmol/L (98-107); Sodium 140 mmol/L (136-145)
[2021-02-25 02:28] LABS: Basophils # 0.1 K/mm3 (0-0.2); Basophils % 0.8 % (0.1-2.0); Eosinophils # 0.2 K/mm3 (0.0-0.4); Eosinophils % 2.2 % (0.1-12.0); Hematocrit 49.7 % (42.0-52.0); Hemoglobin 16.2 g/dL (14.1-18.0); Mean Corpuscular HGB Conc 32.7 g/dL (31.8-35.4); Mean Corpuscular Hemoglobin 31.2 pg (27.0-31.2); Mean Corpuscular Volume 95.3 fl (80-94); Mean Platelet Volume 7.8 fl (7.4-10.4); Monocytes # 0.5 K/mm3 (0.1-1.0); Monocytes % 5.5 % (1.7-9.3); Neutrophils # 5.5 K/mm3 (1.8-7.8); Neutrophils % 67.5 % (37.0-80.0); Platelet Count 269 K/mm3 (142-424); Red Blood Count 5.21 M/mm3 (4.60-6.20); Red Cell Distribution Width 12.9 % (11.5-17.5); White Blood Count 8.1 K/mm3 (4.8-10.8)
[2021-02-25 02:30] LABS: Alanine Aminotransferase 16 U/L (12-78); Albumin Level 4.8 g/dl (3.5-5.0); Albumin/Globulin Ratio 1.7 (1.1-1.8); Alkaline Phosphatase 86 U/L (38-126); Aspartate Amino Transferase 24 U/L (17-59); Bilirubin,Total 0.5 mg/dl (0.2-1.3); Blood Urea Nitrogen 17 mg/dl (9-20); Calcium 9.5 mg/dl (8.4-10.2); Carbon Dioxide 26 mmol/L (22.0-30.0); Creatinine Clearance Estimated 110 mL/min (50-200); Estimated Glomerular Filt Rate 87 ml/min (>60); GFR (African American) 105 ML/MIN (>60); Globulin 2.9 g/dL (1.3-3.2); Glucose 93 mg/dl (74-100); Total Protein,Serum 7.7 g/dl (6.3-8.2)
[2021-02-25 02:31] LABS: Lactic Acid 0.9 mmol/L (0.7-2.1)
[2021-02-25 02:36] LABS: C-Reactive Protein 0.9 mg/L (0-4)
[2021-02-25 02:55] LABS: Procalcitonin < 0.030 ng/mL (0.0-2.0)
[2021-02-25 03:01] LABS: Erythrocyte Sedimentation Rate 8 mm/hr (0-15)
--- NOTE | 2021-02-25 04:00 | HMH.EDGENADL ---
ED Disposition Clinical Impression: Infected dental caries Disposition: Home, Self-Care Condition on Discharge: Good Instructions: DI for Dental Pain Additional Instructions: use meds and see pcp for follow up Prescriptions: cephALEXin [cephALEXin 500mg capsule*] 500 mg PO TID #30 cap Transmission Status: Pending to [facility] clindamycin HCL [Clindamycin HCl] 300 mg PO TID #30 cap Transmission Status: Pending to [facility] Referrals: Dre Anne MD [Primary Care Provider] - - Critical Care Critical Care Time: No Attestation: On 02/25/21, the high probability of a clinically significant, sudden or life threatening deterioration of the following system(s) required my full and direct attention, intervention and personal management. The time I documented below is in addition to time spent performing reported procedures but includes the following listed in this critical care notation. Medical Decision Making - Medical Records Medical records reviewed: Yes: I reviewed the patient's medical records. - Mario Inquiry Pt receiving controlled substance: No Vital Signs: 02/25/21 01:37 02/25/21 04:21 Temperature 98.3 F 98.4 F Temperature Source Oral Oral Pulse Rate 83 Pulse Rate [Left] 77 Respiratory Rate 16 16 Blood Pressure 131/92 H Blood Pressure [Right Arm] 138/85 Blood Pressure Mean [Right Arm] 102 Blood Pressure Source Automatic Cuff Blood Pressure Source [Right Arm] Automatic Cuff Blood Pressure Position Sitting Blood Pressure Position [Right Arm] Sitting 02 Sat by Pulse Oximetry 98 Oxygen Delivery Method Room Air Room Air - Lab Data Lab results reviewed: Yes: I reviewed the patient's lab results. Lab Results 02/25/21 02:00: ESR 8 02/25/21 02:00: Sodium 140, Potassium 4.0, Chloride 104, Carbon Dioxide 26, Anion Gap 14.0, BUN 17, Creatinine 1.00, Estimated Creat Clear 110, Estimated GFR 87, Est GFR ( Amer) 105, Glucose 93, Calcium 9.5, Total Bilirubin 0.5, AST 24, ALT 16, Alkaline Phosphatase 86, C-Reactive Protein 0.9, Total Protein 7.7, Albumin 4.8, Globulin 2.9, Albumin/Globulin Ratio 1.7 02/25/21 02:00: Lactate 0.9 02/25/21 02:00: Procalcitonin < 0.030 02/25/21 02:00: WBC 8.1, RBC 5.21, Hgb 16.2, Hct 49.7, MCV 95.3 H, MCH 31.2, MCHC 32.7, RDW 12.9, Plt Count 269, MPV 7.8, Neut % (Auto) 67.5, Lymph % (Auto) 24.0, [place] % (Auto) 5.5, Eos % (Auto) 2.2, Baso % (Auto) 0.8, Neut # (Auto) 5.5, Lymph # (Auto) 2.0, [place] # (Auto) 0.5, Eos # (Auto) 0.2, Baso # (Auto) 0.1 Result diagrams: 02/25/21 02:00 02/25/21 02:00 Orders (Tests/Meds): ED MEDICATIONS Generic Name Dose Route Start Last Admin Trade Name Freq PRN Reason Stop Dose Admin Benzocaine/Butamben/Tetracaine HCl 1 gm 02/25/21 01:55 02/25/21 02:00 Tetracaine/Benzocaine/Butamben 56 Gm Tarzan TP 03/27/21 01:54 1 gm NEEDED PRN Administration pain Sodium Chloride 1,000 mls @ 999 mls/hr 02/25/21 02:15 02/25/21 02:20 Sod Chlor 0.9% 1000ml Bag IV 02/25/21 03:15 999 mls/hr .Q1H1M STEPHEN Administration Ceftriaxone Sodium 1 gm/ 50 mls @ 100 mls/hr 02/25/21 04:15 02/25/21 04:13 Sodium Chloride IV 03/11/21 04:14 100 mls/hr Q24H STEPHEN Administration Discontinued Medications Generic Name Dose Route Start Last Admin Trade Name Freq PRN Reason Stop Dose Admin Sodium Chloride 500 mls @ 999 mls/hr 02/25/21 02:00 02/25/21 02:00 Sod Chlor 0.9% 1000ml Bag IV 02/25/21 02:30 999 mls/hr .Q31M STEPHEN Administration Iopamidol 75 ml 02/25/21 02:22 02/25/21 02:23 Iopamidol-370 (76%);100ml Bottle IV 02/25/21 02:23 75 ml ONCE ONE Administration Ketorolac Tromethamine 30 mg 02/25/21 01:48 02/25/21 02:00 Ketorolac 30mg/Ml Vial IV 02/25/21 01:49 30 mg ONCE ONE Administration Lidocaine HCl 15 ml 02/25/21 01:54 02/25/21 02:00 Lidocaine 2% Viscous Bertha 15ml Udc PO 02/25/21 01:55 15 ml ONCE ONE Administration Methylprednisolone Sodium Succinate 125
[2021-02-25 04:21] VITALS: BP 131/92; PULSE 83; RESP 16; TEMP 36.9; O2SAT 97
== END 2021-02-25 04:40 | disposition home or self-care (01) ==
PROVIDERS: Emergency Provider Emergency Medicine; PCP Family Medicine
DX: K02.9 Dental caries, unspecified (principal); F41.9 Anxiety disorder, unspecified; K21.9 Gastro-esophageal reflux disease without esophagitis; F17.210 Nicotine dependence, cigarettes, uncomplicated
CPT/HCPCS: 70487; 80053; 83605; 84145; 85025; 85651; 86140; 87040; 96365; 96375; 99283; J0696; Q9967

== ENCOUNTER → 2021-03-04 16:36 | Outpatient (CLI) | payer OTHER, SELFPAY | PROVIDERS: Visit Provider Nurse Practitioner | DX: Z20.822 Contact with and (suspected) exposure to COVID-19 (principal) | CPT/HCPCS: C9803; U0003; U0005 ==

== ENCOUNTER 2021-03-27 20:21 | Emergency (ER) | payer SELFPAY ==
[2021-03-27 20:22] VITALS: BP 122/88; BP 128/89; PULSE 92; RESP 18; TEMP 36.4; O2SAT 97; BMI 24.3
[2021-03-27 20:55] LABS: Microscopic, Urine URINE MICROSCOPIC (MICROSCOPIC)
[2021-03-27 20:58] LABS: Basophils # 0.1 K/mm3 (0-0.2); Basophils % 1.5 % (0.1-2.0); Eosinophils # 0.2 K/mm3 (0.0-0.4); Hematocrit 53.6 % (42.0-52.0); Hemoglobin 16.9 g/dL (14.1-18.0); Lymphocytes # 1.3 K/mm3 (0.7-4.5); Mean Corpuscular HGB Conc 31.6 g/dL (31.8-35.4); Mean Corpuscular Hemoglobin 30.4 pg (27.0-31.2); Mean Corpuscular Volume 96.3 fl (80-94); Mean Platelet Volume 7.8 fl (7.4-10.4); Monocytes # 0.3 K/mm3 (0.1-1.0); Neutrophils # 3.2 K/mm3 (1.8-7.8); Neutrophils % 63.5 % (37.0-80.0); Platelet Count 273 K/mm3 (142-424); Red Blood Count 5.57 M/mm3 (4.60-6.20); Red Cell Distribution Width 13.2 % (11.5-17.5)
[2021-03-27 20:59] LABS: Appearance,Urine SL CLOUDY (Clear); Bilirubin,Urine Negative (Negative); Blood, Urine 3+ (Negative); Color,Urine YELLOW (Yellow); Glucose,Urine (UA) Negative (Negative); Ketones,Urine Negative (Negative); Leukocyte Esterase,Urine Negative (Negative); Nitrate,Urine Negative (Negative); Protein,Urine Negative (Negative); Specific Gravity, Urine >= 1.030 (1.005-1.030); Urobilinogen,Urine 0.2 EU/dl (0.2)
[2021-03-27 21:03] LABS: Alanine Aminotransferase 22 U/L (12-78); Albumin Level 5.2 g/dl (3.5-5.0); Albumin/Globulin Ratio 1.6 (1.1-1.8); Alkaline Phosphatase 82 U/L (38-126); Anion Gap 12.9 mEq/L (5-15); Aspartate Amino Transferase 33 U/L (17-59); Bilirubin,Total 0.7 mg/dl (0.2-1.3); Blood Urea Nitrogen 11 mg/dl (9-20); Calcium 9.5 mg/dl (8.4-10.2); Carbon Dioxide 28 mmol/L (22.0-30.0); Chloride 104 mmol/L (98-107); Creatinine Clearance Estimated 110 mL/min (50-200); Estimated Glomerular Filt Rate 87 ml/min (>60); GFR (African American) 105 ML/MIN (>60); Globulin 3.2 g/dL (1.3-3.2); Glucose 107 mg/dl (74-100); Potassium 3.9 mmoL/L (3.5-5.1); Sodium 141 mmol/L (136-145); Total Protein,Serum 8.4 g/dl (6.3-8.2)
[2021-03-27 21:10] LABS: Bacteria,Urine 1+ /lpf; Calcium Oxalate Crystals,Urine 3+ /lpf; RBC,Urine 50-100 #/hpf (0-3)
--- NOTE | 2021-03-27 21:51 | HMH.EDGENADL ---
ED Disposition Clinical Impression: Kidney stone Disposition: Home, Self-Care Condition on Discharge: Good Instructions: DI for Urinary Tract Infection (UTI), DI for Urinary Tract Infection in Children Prescriptions: Oxycodone HCl [Oxycodone 5mg tab (IR)] 5 mg PO Q6 PRN #10 tab PRN Reason: flank Transmission Status: Pending to [facility] Ondansetron [Zofran 4mg ODT] 4 mg PO TIDP PRN #12 tab PRN Reason: Nausea And Vomiting Transmission Status: Received by [facility] Referrals: Dre Anne MD [Primary Care Provider] - Erich Patino MD [Staff Physician] - - Critical Care Critical Care Time: No Attestation: On 03/27/21, the high probability of a clinically significant, sudden or life threatening deterioration of the following system(s) required my full and direct attention, intervention and personal management. The time I documented below is in addition to time spent performing reported procedures but includes the following listed in this critical care notation. Medical Decision Making - Medical Records Medical records reviewed: Yes: I reviewed the patient's medical records. - Mario Inquiry Pt receiving controlled substance: No Vital Signs: 03/27/21 20:22 Temperature 97.5 F L Temperature Source Oral Pulse Rate [Left Radial] 92 H Respiratory Rate 18 Blood Pressure [Left Arm] 122/88 Blood Pressure [Right Arm] 128/89 Blood Pressure Mean [Left Arm] 99 Blood Pressure Mean [Right Arm] 102 02 Sat by Pulse Oximetry 97 Oxygen Delivery Method Room Air - Lab Data Lab Results 03/27/21 20:32: WBC 5.0, RBC 5.57, Hgb 16.9, Hct 53.6 H, MCV 96.3 H, MCH 30.4, MCHC 31.6 L, RDW 13.2, Plt Count 273, MPV 7.8, Neut % (Auto) 63.5, Lymph % (Auto) 27.0, [place] % (Auto) 5.0, Eos % (Auto) 3.0, Baso % (Auto) 1.5, Neut # (Auto) 3.2, Lymph # (Auto) 1.3, [place] # (Auto) 0.3, Eos # (Auto) 0.2, Baso # (Auto) 0.1 03/27/21 20:32: Urine Color Yellow, Urine Appearance Sl cloudy, Urine pH 6.0, Ur Specific [place] >= 1.030, Urine Protein Negative, Urine Glucose (UA) Negative, Urine Ketones Negative, Urine Blood 3+, Urine Nitrate Negative, Urine Bilirubin Negative, Urine Urobilinogen 0.2, Ur Leukocyte Esterase Negative, Urine RBC 50-100, Urine WBC 3-5, Ur Squamous Epith Cells 3-5, Calcium Oxalate Crystal 3+, Urine Bacteria 1+ 03/27/21 20:32: Sodium 141, Potassium 3.9, Chloride 104, Carbon Dioxide 28, Anion Gap 12.9, BUN 11, Creatinine 1.00, Estimated Creat Clear 110, Estimated GFR 87, Est GFR ( Amer) 105, Glucose 107 H, Calcium 9.5, Total Bilirubin 0.7, AST 33, ALT 22, Alkaline Phosphatase 82, Total Protein 8.4 H, Albumin 5.2 H, Globulin 3.2, Albumin/Globulin Ratio 1.6 Result diagrams: 03/27/21 20:32 03/27/21 20:32 Orders (Tests/Meds): ED MEDICATIONS Generic Name Dose Route Start Last Admin Trade Name Freq PRN Reason Stop Dose Admin Lactated Ringer's 1,000 mls @ 999 mls/hr 03/27/21 20:45 03/27/21 20:54 Lactated Ringer's 1000 Ml Bag IV 03/27/21 21:45 999 mls/hr .Q1H1M STEPHEN Administration Discontinued Medications Generic Name Dose Route Start Last Admin Trade Name Freq PRN Reason Stop Dose Admin Ketorolac Tromethamine 30 mg 03/27/21 20:42 03/27/21 20:54 Ketorolac 30mg/Ml Vial IV 03/27/21 20:43 30 mg ONCE ONE Administration Ondansetron HCl 4 mg 03/27/21 20:42 03/27/21 20:54 Ondansetron 4mg/2ml Vial IV 03/27/21 20:43 4 mg ONCE ONE Administration Tramadol HCl 1 cheikh 03/27/21 21:58 03/27/21 21:59 Tramadol 50mg Tab Take Home Pack (10) PO 03/27/21 21:59 1 cheikh ONCE ONE Administration Medical Decision Narrative: Patient is a 30-year-old male presents the ED today for further evaluation of left-sided flank pain. Patient is appearing to be in pain on initial evaluation but is in no acute distress, awake, endorsing pain in his left leg. Given the patient has a significant history of kidney stones, and has never had urologic instrumentation for these in the
[2021-03-27 22:08] VITALS: BP 132/76; PULSE 88; RESP 16; TEMP 36.7; O2SAT 97
== END 2021-03-27 22:10 | disposition home or self-care (01) ==
PROVIDERS: Emergency Provider Student in an Organized Health Care Education/Training Program; PCP Family Medicine
DX: N20.0 Calculus of kidney (principal); F41.9 Anxiety disorder, unspecified; K21.9 Gastro-esophageal reflux disease without esophagitis; F17.210 Nicotine dependence, cigarettes, uncomplicated
CPT/HCPCS: 80053; 81001; 85025; 96365; 96375; 96376; 99282; J2405

== ENCOUNTER 2021-04-10 21:03 | Emergency (ER) | payer SELFPAY ==
[2021-04-10 21:04] VITALS: BP 119/83; PULSE 86; RESP 16; TEMP 37; O2SAT 98; BMI 23.6
--- NOTE | 2021-04-10 21:15 | XR_ITS ---
PROCEDURE INFORMATION: Exam: XR Chest Exam date and time: 04/10/2021 9:15 PM Age: 30 years old Clinical indication: Sternal or substernal pain; Additional info: Chest pain TECHNIQUE: Imaging protocol: XR of the chest. Views: 2 views. COMPARISON: CR XR CHEST PORTABLE 10/26/2020 2:28 PM FINDINGS: Lungs: Unremarkable. No consolidation. Pleural spaces: Unremarkable. No pleural effusion. No pneumothorax. Heart/Mediastinum: Unremarkable. No cardiomegaly. Bones/joints: Unremarkable. IMPRESSION: No acute findings.
[2021-04-10 21:19] LABS: Coronavirus 19, PCR Not Detected (NotDetected); Influenza A, PCR Not Detected (NotDetected); Influenza B, PCR Not Detected (NotDetected)
--- NOTE | 2021-04-10 21:20 | HMH.EDGENADL ---
ED Disposition Clinical Impression: Viral URI with cough Disposition: Home, Self-Care Condition on Discharge: Good Referrals: Dre Anne MD [Primary Care Provider] - - Critical Care Critical Care Time: No Attestation: On 04/10/21, the high probability of a clinically significant, sudden or life threatening deterioration of the following system(s) required my full and direct attention, intervention and personal management. The time I documented below is in addition to time spent performing reported procedures but includes the following listed in this critical care notation. Medical Decision Making - Medical Records Medical records reviewed: Yes: I reviewed the patient's medical records. - Mario Inquiry Pt receiving controlled substance: No Vital Signs: 04/10/21 21:04 Temperature 98.6 F Temperature Source Oral Pulse Rate [Left Radial] 86 Respiratory Rate 16 Blood Pressure [Right Arm] 119/83 Blood Pressure Mean [Right Arm] 95 Blood Pressure Position [Right Arm] Sitting 02 Sat by Pulse Oximetry 98 Oxygen Delivery Method Room Air - Lab Data Lab results reviewed: Yes: I reviewed the patient's lab results. Lab Results 04/10/21 21:09: SARS-CoV-2 (PCR) Not detected, Influenza A Untype (PCR) Not detected, Influenza Type B (PCR) Not detected 04/10/21 21:10: Group A Strep Rapid Negative Orders (Tests/Meds): ED MEDICATIONS Discontinued Medications Generic Name Dose Route Start Last Admin Trade Name Freq PRN Reason Stop Dose Admin Acetaminophen 1,000 mg 04/10/21 21:51 04/10/21 22:00 Acetaminophen 500mg Tab PO 04/10/21 21:52 1,000 mg ONCE ONE Administration Ketorolac Tromethamine 15 mg 04/10/21 21:50 Ketorolac 30mg/Ml Vial IV 04/10/21 21:51 ONCE ONE Ketorolac Tromethamine 15 mg 04/10/21 21:56 04/10/21 22:11 Ketorolac 30mg/Ml Vial IM 04/10/21 21:57 15 mg ONCE ONE Administration ORDERS Category Date Time Status Strep Screen Confirmation Stat Micro 04/10/21 21:10 Received - Radiology Data #1 Image(s): Chest (No acute findings. ) Medical Decision Narrative: Patient is a 30-year-old otherwise healthy male presenting for chief complaint of nasal congestion, sore throat and cough for the past several days. Differential diagnosis includes, but is not limited to, viral upper respiratory infection, COVID-19, acute bronchitis, pneumonia, other. On initial exam, patient is hemodynamically stable and nontoxic-appearing. Patient has clear lung sounds bilaterally. He is not in any acute respiratory distress. He was evaluated with a COVID-19 swab, strep swab, chest x-ray and treated with IM Toradol and p.o. Tylenol for headache. COVID-19, influenza, strep are negative. Patient refused toradol shot. CXR without acute findings. Continues to be well appearing, normal VS. Discharged in a stable condition with return precautions. General Adult HPI - General Chief complaint: Upper Respiratory Infection Stated complaint: sore throat, cough, vomiting, congestion Time Seen by Provider: 04/10/21 21:25 Mode of Arrival: Ambulatory Limitations: No Limitations Description of Symptoms (Recalled from ER Triage Doc. by RN): PT REPORTS HE WORKS IN [employer] AND HAS A RUNNY NOSE, COUGH AND SORE THROAT AND WANTS TO BE TESTED. - History of Present Illness HPI narrative: Rubén is a 30yo M with h/o renal stones presenting for cc/of several days of congestion, sore throat, and dry cough. He states he had Tmax at home of 100.1. 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 Denies chest pain, hemoptysis, dyspnea, abd pain, n/v/d. - Related Data Previous Rx's Medication Instructions Recorded trazodone 100 mg tablet 100 mg PO DAILY PRN #90 tab 11/02/20 Oxycodone HCl [Oxycodone 5mg tab 5 mg PO Q6 PRN #10 tab 03/27/21 (IR)] Allergies Allergy/AdvReac Type Severity Reaction Status Date / Time codeine [CODEINE] Allergy Unkn
[2021-04-10 21:36] LABS: Strep Scrn Group A (Rapid) Negative (Negative)
[2021-04-10 22:20] VITALS: BP 118/73; PULSE 78; RESP 16; TEMP 36.7; O2SAT 100
== END 2021-04-10 22:23 | disposition home or self-care (01) ==
PROVIDERS: Emergency Provider Emergency Medicine; PCP Family Medicine
DX: J06.9 Acute upper respiratory infection, unspecified (principal); F41.9 Anxiety disorder, unspecified; K21.9 Gastro-esophageal reflux disease without esophagitis; F17.210 Nicotine dependence, cigarettes, uncomplicated; Z20.822 Contact with and (suspected) exposure to COVID-19
CPT/HCPCS: 71046; 87430; 99282; 99283; C9803; U0003; U0005

== ENCOUNTER 2021-07-07 16:20 | Emergency (ER) | payer SELFPAY ==
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
[2021-07-07 16:45] VITALS: BP 120/73; PULSE 100; RESP 19; TEMP 37.7; O2SAT 98; BMI 22.8
[2021-07-07 16:46] LABS: UTC Influenza A Antigen Negative (Negative); UTC Influenza B Antigen Negative (Negative)
[2021-07-07 16:55] LABS: Strep Scrn Group A (Rapid) Negative (Negative)
[2021-07-07 17:11] VITALS: BP 120/73; PULSE 100; RESP 19; TEMP 37.7
== END 2021-07-07 17:12 | disposition home or self-care (01) ==
PROVIDERS: Emergency Provider Nurse Practitioner Family; PCP Family Medicine
DX: J20.9 Acute bronchitis, unspecified (principal); J02.9 Acute pharyngitis, unspecified; B34.9 Viral infection, unspecified; K21.9 Gastro-esophageal reflux disease without esophagitis; Z72.0 Tobacco use
CPT/HCPCS: 87430; 87804; 99212; G0463

== ENCOUNTER 2021-08-16 16:42 | Emergency (ER) | payer OTHER, SELFPAY ==
[2021-08-16 16:50] VITALS: BP 135/83; PULSE 102; RESP 19; TEMP 36.9; O2SAT 100; BMI 25.3
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
[2021-08-16 17:26] VITALS: BP 135/83; PULSE 102; RESP 19; TEMP 36.9; O2SAT 100
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
== END 2021-08-16 18:00 | disposition home or self-care (01) ==
PROVIDERS: Emergency Provider Nurse Practitioner
DX: R07.81 Pleurodynia (principal); S80.212A Abrasion, left knee, initial encounter; S91.119A Laceration without foreign body of unspecified toe without damage to nail, initial encounter; Y04.0XXA Assault by unarmed brawl or fight, initial encounter
CPT/HCPCS: 71101; 99212; G0463

== ENCOUNTER 2021-10-09 13:23 | Emergency (ER) | payer BC, SELFPAY ==
[2021-10-09 14:51] VITALS: BP 113/73; PULSE 89; RESP 16; TEMP 37.3; O2SAT 98; BMI 23.1
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
[2021-10-09 15:40] VITALS: BP 113/73; PULSE 88; RESP 16; TEMP 37.3
== END 2021-10-09 15:41 | disposition home or self-care (01) ==
PROVIDERS: Emergency Provider Physician Assistant
DX: U07.1 COVID-19 (principal)
CPT/HCPCS: 99212; C9803; G0463; U0003; U0005

== ENCOUNTER 2022-10-27 19:22 | Emergency (ER) | payer BC, SELFPAY ==
[2022-10-27 19:24] VITALS: BP 119/81; PULSE 83; RESP 20; TEMP 36.7; O2SAT 100; BMI 25.8
--- NOTE | 2022-10-27 19:51 | CT_ITS ---
PROCEDURE INFORMATION: Exam: CT Abdomen And Pelvis Without Contrast Exam date and time: 10/27/2022 8:05 PM Age: 32 years old Clinical indication: Abdominal pain; Flank; Left; Additional info: L flank pain TECHNIQUE: Imaging protocol: Computed tomography of the abdomen and pelvis without contrast. Radiation optimization: All CT scans at this facility use at least one of these dose optimization techniques: automated exposure control; mA and/or kV adjustment per patient size (includes targeted exams where dose is matched to clinical indication); or iterative reconstruction. REPORTING DATA: Count of CT and Cardiac NM exams in prior 12 months: This patient has received 0 known CTs and 0 known cardiac nuclear medicine studies in the 12 months prior to the current study. COMPARISON: CT ABDOMEN PELVIS WO CON 02/21/2020 10:30 AM FINDINGS: Liver: Normal. No mass. Gallbladder and bile ducts: Normal. No calcified stones. No ductal dilation. Pancreas: Normal. No ductal dilation. Spleen: Normal. No splenomegaly. Adrenal glands: Normal. No mass. Kidneys and ureters: On axial image 107, there is a 2 mm stone at the left ureterovesical junction. No significant hydronephrosis. Single small calyceal stone noted in the right kidney. Kidneys are otherwise unremarkable. Stomach and bowel: Unremarkable. No obstruction. No mucosal thickening. Appendix: No evidence of appendicitis. Intraperitoneal space: Unremarkable. No free air. No significant fluid collection. Vasculature: Unremarkable. No abdominal aortic aneurysm. Lymph nodes: Unremarkable. No enlarged lymph nodes. Urinary bladder: Unremarkable as visualized. Reproductive: Unremarkable as visualized. Bones/joints: Unremarkable. No acute fracture. Soft tissues: Unremarkable. IMPRESSION: 2 mm left UVJ stone without hydronephrosis. Minimal right nephrolithiasis also noted.
--- NOTE | 2022-10-27 19:56 | HMH.EDGENADL ---
Discharge Plan Disposition Patient Disposition: Home, Self-Care Condition: Good Prescriptions Prescriptions: New ketorolac 10 mg tablet 10 mg PO Q8H PRN (Reason: pain) Qty: 20 0RF hydrocodone-acetaminophen 5-325 mg tablet 1 tab PO Q8H PRN (Reason: pain) Qty: 12 0RF tamsulosin [Flomax] 0.4 mg capsule 0.4 mg PO DAILY Qty: 14 0RF ondansetron 4 mg tablet,disintegrating 4 mg PO Q8H PRN (Reason: nausea and vomiting) 4 Days Qty: 12 0RF No Action trazodone 100 mg tablet 100 mg PO DAILY PRN (Reason: insomnia) Qty: 90 3RF oxycodone 5 MG tablet 5 mg PO Q6 PRN (Reason: flank) Qty: 10 0RF azithromycin 250 MG tablet 250 mg PO UD DOSE PK Qty: 6 0RF Rx Instructions: Take two (2) tablets today, then one (1) tablet days #2 thru #5 methylprednisolone 4 MG tablets,dose pack 4 mg PO DIRECTED 6 Days Qty: 21 0RF benzonatate 100 MG capsule 100 mg PO TIDP PRN (Reason: Cough) Qty: 30 0RF ibuprofen 600 MG tablet 600 mg PO Q8HP PRN (Reason: Moderate Pain) Qty: 20 0RF ondansetron 8 mg tablet,disintegrating 8 mg PO TID PRN (Reason: Nausea) Qty: 30 0RF prednisone 20 mg tablet 20 mg PO BID Qty: 10 0RF promethazine-DM 6.25-15 mg/5 mL syrup 5 ml PO Q6H PRN (Reason: Cough) Qty: 180 0RF Referrals Follow up/Referrals: Provider,Referral, MD [Primary Care Provider] - See instructions Activity Restrictions/Add. Instructions Additional Instructions/Restrictions: You were evaluated in the emergency department today. Please picker tender your prescription at the pharmacy and take as needed. Orally hydrate at home is much as possible. Follow-up with your primary care provider over the next 3 days. Return to the emergency department for new or worsening symptoms, such as fevers, inability to tolerate oral intake, or other concerns. Clinical Impressions Clinical Impression: Ureterolithiasis Instructions Patient Instructions: DI for Kidney Stones Discharge ED Provider: Alisson Santana General Adult HPI General Chief complaint: Urogenital-Male Stated complaint: possible Kidney stones Time Seen by Provider: 10/27/22 19:44 Mode of Arrival: Ambulatory Source of Information: Patient Limitations: No Limitations Description of Symptoms (Recalled from ER Triage Doc. by RN): Pt present with left flank pain and urinary retention. States the pain started 2 days ago, rates 10/10. Hx of kidney stones. History of Present Illness HPI narrative: This patient is a 32-year-old male who reports a history of kidney stones presenting to the emergency department for evaluation with concern for left flank pain. He states that it started 2 days ago and is 10 out of 10. He reports a history of kidney stones, and states that this feels similar. He also states that he has had blood in his urine and urinary frequency/urgency. Nothing seems to make his symptoms better or worse. He denies any fevers, chills, nausea, vomiting, change in bowel movements, or other concerns. Related Data Previous Rx's Medication Instructions Recorded trazodone 100 mg tablet 100 mg PO DAILY PRN insomnia #90 11/02/20 tabs oxycodone 5 mg tablet 5 mg PO Q6 PRN flank #10 tabs 03/27/21 azithromycin 250 mg tablet 250 mg PO UD DOSE PK #6 tabs 07/07/21 benzonatate 100 mg capsule 100 mg PO TIDP PRN Cough #30 caps 07/07/21 methylprednisolone 4 mg tablets in 4 mg PO DIRECTED 6 days #21 07/07/21 a dose pack packets ibuprofen 600 mg tablet 600 mg PO Q8HP PRN Moderate Pain 08/16/21 #20 tabs ondansetron 8 mg disintegrating 8 mg PO TID PRN Nausea #30 tabs 10/09/21 tablet prednisone 20 mg tablet 20 mg PO BID #10 tabs 10/09/21 promethazine-DM 6.25 mg-15 mg/5 mL 5 ml PO Q6H PRN Cough #180 mL 10/09/21 oral syrup hydrocodone 5 mg-acetaminophen 325 1 tab PO Q8H PRN pain #12 tabs 10/27/22 mg tablet ketorolac 10 mg tablet 10 mg PO Q8H PRN pain #20 tabs 10/27/22 ondansetron 4 mg disintegrating 4 mg PO Q8H PRN nausea and 10/27/22
[2022-10-27 20:09] LABS: Chloride 106 mmol/L (98-107); Potassium 4.2 mmoL/L (3.5-5.1); Sodium 142 mmol/L (136-145)
[2022-10-27 20:12] LABS: Anion Gap 15.2 mEq/L (5-15); Blood Urea Nitrogen 15 mg/dl (9-20); Carbon Dioxide 25 mmol/L (22.0-30.0); Creatinine Clearance Estimated 95 mL/min (50-200); Estimated Glomerular Filt Rate 70 ml/min (>60); GFR (African American) 84 ML/MIN (>60); Glucose 91 mg/dl (74-100)
[2022-10-27 20:13] LABS: Calcium 10.2 mg/dl (8.4-10.2)
[2022-10-27 20:25] LABS: Basophils # 0.1 K/mm3 (0-0.2); Basophils % 0.6 % (0.1-2.0); Eosinophils # 0.2 K/mm3 (0.0-0.4); Eosinophils % 2.3 % (0.1-12.0); Hematocrit 52.6 % (42.0-52.0); Hemoglobin 17.2 g/dL (14.1-18.0); Lymphocytes # 1.9 K/mm3 (0.7-4.5); Lymphocytes % 21.9 % (10-50); Mean Corpuscular HGB Conc 32.7 g/dL (31.8-35.4); Mean Corpuscular Hemoglobin 29.9 pg (27.0-31.2); Mean Corpuscular Volume 91.6 fl (80-94); Mean Platelet Volume 7.8 fl (7.4-10.4); Monocytes # 0.5 K/mm3 (0.1-1.0); Monocytes % 5.5 % (1.7-9.3); Neutrophils # 6.2 K/mm3 (1.8-7.8); Neutrophils % 69.7 % (37.0-80.0); Platelet Count 285 K/mm3 (142-424); Red Blood Count 5.74 M/mm3 (4.60-6.20); Red Cell Distribution Width 13.2 % (11.5-17.5); White Blood Count 8.8 K/mm3 (4.8-10.8)
--- NOTE | 2022-10-27 21:17 | PC.NURSE ---
Pt Bladder Scanned = 93ml
[2022-10-27 22:05] VITALS: BP 127/72; PULSE 80; RESP 20; TEMP 36.7; O2SAT 100
== END 2022-10-27 22:07 | disposition home or self-care (01) ==
PROVIDERS: Emergency Provider Emergency Medicine
DX: N20.1 Calculus of ureter (principal); R10.9 Unspecified abdominal pain; F17.210 Nicotine dependence, cigarettes, uncomplicated
CPT/HCPCS: 74176; 80048; 85025; 96361; 96374; 96375; 99284; J0131

== ENCOUNTER 2023-03-05 13:11 | Emergency (ER) | payer SELFPAY ==
[2023-03-05 14:30] VITALS: BP 110/83; PULSE 84; RESP 20; TEMP 37.2; O2SAT 98; BMI 25.3
[2023-03-05 14:57] LABS: UTC Strep Screen (Rapid) Positive (Negative)
--- NOTE | 2023-03-05 14:57 | EXP.UTC ---
Discharge Plan Disposition Patient Disposition: Home, Self-Care Condition: Good Prescriptions Prescriptions: New amoxicillin 875 mg tablet 875 mg PO Q12H Qty: 20 0RF [id number] [Bromfed DM] 2-30-10 mg/5 mL Syrup 10 ml PO Q4H PRN (Reason: Cough) Qty: 240 0RF Referrals Follow up/Referrals: Provider,Referral, MD [Primary Care Provider] - See instructions Activity Restrictions/Add. Instructions Additional Instructions/Restrictions: *Monitor Temp, Over the counter Motrin or Tylenol as directed/as needed Tylenol every 4 hours and Motrin every 6 hours (as long as your family doctor has told you that you can take it) for fever or pain. and straight to ER if unable to lower temp less than 101.0 after medication given *Warm salt water gargles may help to soothe the throat *Throat Lozenges? *Warm fluids like tea with honey may help to soothe the throat? *Sleep elevated *Humidifier/Vaporizer * *If you did not take Penicillin shot or was unable to, start taking antibiotic immediately and make sure that you take it for the FULL length of time although you should start to feel better in 24-48 hours *change toothbrush and toothpaste 24-48 hours after starting to take antibiotics so you do not reinfect yourself Monitor Temp. Tylenol and/or Ibuprofen as needed. ER if fever is no less than 101 despite alternating Tylenol and Ibuprofen * Encourage fluids, water, Gatorade, powerade, pedialyte if infant/toddler/or child *Cold fluids, popsicles and ice cream may feel good on his throat Follow up IMMEDIATELY for new or worsening symptoms or no Noticeable improvement over the next 48-72 hours. 911 for difficulty breathing or swallowing Clinical Impressions Clinical Impression: Strep throat Stand Alone Forms Stand Alone Forms: Work/School Release Instructions Patient Instructions: Strep Throat, DI for Strep Throat Discharge ED Provider: Tita Champagne [facility] [place] H[place] General Stated complaint: fever, vomiting, bodyaches Mode of Arrival: Ambulatory Source of Information: Patient Limitations: No Limitations Time Seen by Provider: 03/05/23 14:57 Description of Symptoms (Recalled from Triage Doc. by RN): PATIENT C/O COUGH, BODY ACHES, FEVER, HEADACHE, AND LOSS OF TASTE AND SMELL SINCE MONDAY. RECENTLY EXPOSED TO STREP AND FLU HEENT Symptoms (Recalled from RN notes): Yes Resp Symptoms (Recalled from RN notes): Yes Skin Symptoms (Recalled from RN notes): No MS Symptoms (Recalled from RN notes): No Functional Status (Recalled from RN notes): WNL History of Present Illness Provider Complaint: Patient states that he was recently exposed to COVID and flu States for several days he has been having sorethroat, cough, body aches, fever, headache and recently lost his taste and smell so today when he was still not feeling any better he came in to get checked Related Data Previous Rx's Medication Instructions Recorded amoxicillin 875 mg tablet 875 mg PO Q12H #20 tabs 03/05/23 zhuunxqnvunpvrw-smpuypzcrdukrri-MI 10 ml PO Q4H PRN Cough #240 mL 03/05/23 2 mg-30 mg-10 mg/5 mL oral syrup (Bromfed DM) Allergies Allergy/AdvReac Type Severity Reaction Status Date / Time codeine [CODEINE] Allergy Unknown nausea & Verified 10/09/21 14:54 swelling Worker's Comp Is this a Worker's Comp case?: No [facility] Disclaimer: The information contained in this section may have been updated after the patient was seen, as this information can be updated by other users. 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 [employer] current occupational exposures/hazards: No ROS Obtained: Yes All systems reviewed & no additional complaints except as documented and Yes Systems reviewed as appropriate & no additional complaints except as documented Constitutional Constitutional: Reports system reviewed and no additional complaints, except as documented, Reports as per HPI, Reports body ache, Reports chills, Reports fever(s) and Reports headache(s) ENT Ears, Nose, Mouth, and Throat: Reports system reviewed and no additional complaints, except as documented, Reports as per HPI, Reports headache(s), Reports nasal congestion and Reports sore throat Cardiovascular Cardiovascular: Reports system reviewed and no additional complaints, except as documented and Reports as per HPI Respiratory Respiratory: Reports system reviewed and no additional complaints, except as documented, Reports as per HPI and Reports cough Gastrointestinal Gastrointestingal: Reports system reviewed and no additional complaints, except as documented and as per HPI Neurologic Neurologic: Reports headache(s) Physical Exam General General appearance: alert and in no apparent distress ENT ENT exam: Present mucous membranes moist Expanded ENT Exam Nose exam: Absent sinus tenderness Throat exam: Present tonsillar erythema Respiratory Respiratory exam: Present normal lung sounds bilaterally; Absent respiratory distress or wheezes Cardiovascular Cardiovascular exam: Present regular rate, normal rhythm and normal heart sounds Neurological Exam Neurological exam: Present alert, oriented X3 and normal gait Medical Decision Making Mario Inquiry Pt receiving controlled substance: No Mario was queried for this patient: No Vital Signs: 03/05/23 14:30 Temperature 99.0 F Temperature Source Oral Pulse Rate [Left Brachial] 84 Respiratory Rate 20 Blood Pressure [Left Arm] 110/83 Blood Pressure Mean [Left Arm] 92 Blood Pressure Source [Left Arm] Automatic Cuff Blood Pressure Position [Left Arm] Sitting 02 Sat by Pulse Oximetry 98 Oxygen Delivery Method Room Air Lab Data Lab results reviewed: Yes I reviewed the patient's lab results.
[2023-03-05 15:03] LABS: UTC Influenza A Antigen Negative (Negative)
[2023-03-05 15:04] LABS: UTC Influenza B Antigen Negative (Negative)
[2023-03-05 15:05] VITALS: BP 110/83; PULSE 84; RESP 20; TEMP 37.2; O2SAT 98
== END 2023-03-05 15:09 | disposition home or self-care (01) ==
PROVIDERS: Emergency Provider Nurse Practitioner
DX: J02.0 Streptococcal pharyngitis (principal); R07.0 Pain in throat; R50.9 Fever, unspecified; R11.2 Nausea with vomiting, unspecified; R51.9 Headache, unspecified; R05.9 Cough, unspecified; R43.9 Unspecified disturbances of smell and taste; F17.210 Nicotine dependence, cigarettes, uncomplicated
CPT/HCPCS: 87635; 87804; 87880; 99212; 99214; G0463

== ENCOUNTER 2023-04-21 21:50 | Emergency (ER) | payer MEDICAID, SELFPAY ==
--- NOTE | 2023-04-21 21:49 | ECG_ITS ---
APPROVED REPORT Exam: Resting ECG HR:79 bpm ECG Measurements Heart Rate 79 AXES MO 147 P 58 QRSd 97 QRS 95 QT 352 T 34 QTc 387 Conclusion SINUS RHYTHM BORDERLINE RIGHT AXIS DEVIATION [QRS AXIS > 90] BORDERLINE ECG UNCONFIRMED REPORT Electronically signed by : MACO PASTRANA, 04/22/2023 06:48:41
[2023-04-21 21:51] VITALS: BP 114/77; PULSE 85; RESP 18; TEMP 36.8; O2SAT 100; BMI 26.6
--- NOTE | 2023-04-21 21:59 | XR_ITS ---
PROCEDURE INFORMATION: Exam: XR Chest Exam date and time: 04/21/2023 10:07 PM Age: 32 years old Clinical indication: Other: Chest pain TECHNIQUE: Imaging protocol: Radiologic exam of the chest. Views: 2 views. COMPARISON: CR XR RIBS LT MIN 3V W CXR1V 08/16/2021 4:57 PM and chest x-ray 04/10/2021 FINDINGS: Lungs: Unremarkable. No consolidation. Pleural spaces: Unremarkable. No pleural effusion. No pneumothorax. Heart/Mediastinum: Unremarkable. No cardiomegaly. Bones/joints: Unremarkable. IMPRESSION: Stable chest x-ray with no acute disease.
[2023-04-21 22:00] VITALS: BP 124/77; PULSE 82; RESP 20; O2SAT 99
[2023-04-21 22:06] LABS: Basophils # 0.1 K/mm3 (0-0.2); Eosinophils # 0.2 K/mm3 (0.0-0.4); Eosinophils % 2.4 % (0.1-12.0); Hematocrit 48.6 % (42.0-52.0); Lymphocytes # 2.1 K/mm3 (0.7-4.5); Lymphocytes % 28.6 % (10-50); Mean Corpuscular HGB Conc 32.9 g/dL (31.8-35.4); Mean Corpuscular Volume 94.2 fl (80-94); Mean Platelet Volume 7.6 fl (7.4-10.4); Monocytes # 0.4 K/mm3 (0.1-1.0); Monocytes % 5.4 % (1.7-9.3); Neutrophils # 4.6 K/mm3 (1.8-7.8); Neutrophils % 62.6 % (37.0-80.0); Platelet Count 287 K/mm3 (142-424); Red Blood Count 5.16 M/mm3 (4.60-6.20); Red Cell Distribution Width 13.4 % (11.5-17.5); White Blood Count 7.4 K/mm3 (4.8-10.8)
[2023-04-21 22:09] LABS: Chloride 107 mmol/L (98-107); Potassium 3.7 mmoL/L (3.5-5.1); Sodium 137 mmol/L (136-145)
[2023-04-21 22:12] LABS: Alanine Aminotransferase 28 U/L (12-78); Albumin Level 4.1 g/dl (3.5-5.0); Albumin/Globulin Ratio 1.3 (1.1-1.8); Alkaline Phosphatase 84 U/L (38-126); Anion Gap 6.7 mEq/L (5-15); Aspartate Amino Transferase 30 U/L (17-59); Bilirubin,Total 0.5 mg/dl (0.2-1.3); Blood Urea Nitrogen 14 mg/dl (9-20); Carbon Dioxide 27 mmol/L (22.0-30.0); Creatinine Clearance Estimated 107 mL/min (50-200); Estimated Glomerular Filt Rate 77 ml/min (>60); GFR (African American) 93 ML/MIN (>60); Globulin 3.1 g/dL (1.3-3.2); Total Protein,Serum 7.2 g/dl (6.3-8.2)
[2023-04-21 22:13] LABS: Calcium 9.1 mg/dl (8.4-10.2); Glucose 100 mg/dl (74-100)
[2023-04-21 22:22] LABS: Lipase 103 U/L (23-300)
[2023-04-21 22:28] LABS: Troponin I < 0.01 ng/ml (0.00-0.034)
[2023-04-21 22:30] VITALS: BP 118/74; PULSE 89; RESP 17; O2SAT 95
[2023-04-21] MEDS: LACTATED RINGERS 1000ML 1,000 ML 999 ML IV (22:38)
[2023-04-21] MEDS: ACETAMINOPHEN 500MG TAB 1000 MG PO (22:39)
[2023-04-21] MEDS: PROCHLORPERAZINE 10MG/2ML VIAL 10 MG IV (22:40)
[2023-04-21] MEDS: KETOROLAC 30MG/ML VIAL 15 MG IV (22:40)
--- NOTE | 2023-04-21 22:40 | ED_ITS ---
Discharge Plan Disposition Patient Disposition: Home, Self-Care Prescriptions Prescriptions: No Action amoxicillin 875 mg tablet 875 mg PO Q12H Qty: 20 0RF [id number]-[id number]-IV [Bromfed DM] 2-30-10 mg/5 mL Syrup 10 ml PO Q4H PRN (Reason: Cough) Qty: 240 0RF Referrals Follow up/Referrals: Leslie Huber APRN [Primary Care Provider] - See instructions Activity Restrictions/Add. Instructions Additional Instructions/Restrictions: Call your family doctor to establish care for this visit to the emergency department and schedule follow-up within 48 hours to ensure improvement. If you have any worsening of your condition or any other concerning signs or symptoms, return to the emergency department or your primary care doctor for further evaluation. Clinical Impressions Clinical Impression: Enteritis, Abdominal pain, Diarrhea, Illness anxiety disorder Discharge ED Provider: Ben Lane HPI <Ben Lane MD - Last Filed: 04/21/23 22:58> General Chief Complaint: Chest Pain Stated Complaint: chest pain Time Seen by Provider: 04/21/23 21:54 Mode of Arrival: Ambulatory Source of Information: Patient Limitations: No Limitations Description of Symptoms (Recalled from ER Triage Doc. by RN): Patient reports right sided chest pain that started yesterday, has been intermittent in nature. Patient states that he has also had one episode of black appearing diarrhea at approximately 2130, with accompanying abdominal pain primarily in the LUQ and RLQ that began approximately 2 weeks ago. History of Present Illness HPI narrative: 32-year-old male history of psoriatic arthritis multiple complaints. Patient states that he had epigastric pain/left lower chest wall pain that started yesterday. Intermittent, cramping and sharp in nature. Hurts in right lower quadrant, right upper quadrant, epigastrium, left upper quadrant, left lower quadrant. States that he had diarrhea today that was dark and watery. No vomiting. He states that he is also had headaches. Patient is concerned that he has cancer, multiple sclerosis, among a host of other diseases, however has never been worked up for any of these things. Has follow-up with his primary care provider to start these workups. No fevers, chills, night sweats, unintended weight loss, abdominal surgical history, family history of early cardiac disease or early cancer, or any other concerns. Reassurance given. Related Data Previous Rx's Medication Instructions Recorded amoxicillin 875 mg tablet 875 mg PO Q12H #20 tabs 03/05/23 hsxtmhfprfjmfwr-qqwzwreftrgdyra-IM 10 ml PO Q4H PRN Cough #240 mL 03/05/23 2 mg-30 mg-10 mg/5 mL oral syrup (Bromfed DM) Allergies Allergy/AdvReac Type Severity Reaction Status Date / Time codeine [CODEINE] Allergy Unknown nausea & Verified 10/09/21 14:54 swelling PFSH <Ben Lane MD - Last Filed: 04/21/23 22:58> PFS Disclaimer: The information contained in this section may have been updated after the patient was seen, as this information can be updated by other users. 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 [employer] current occupational exposures/hazards: No <Ben Lane MD - Last Filed: 04/21/23 22:58> ROS Obtained: Yes All systems reviewed & no additional complaints except as documented Physical Exam <Ben Lane MD - Last Filed: 04/21/23 22:58> General General appearance: alert Neck Neck exam: Present trachea midline Chest Chest inspection: Present normal inspection and symmetric chest wall rise Respiratory Respiratory exam: Present normal lung sounds bilaterally; Absent respiratory distress, wheezes, stridor, accessory muscle use or prolonged expiratory phase Cardiovascular Cardiovascular exam: Present regular rate and normal rhythm Abdominal Exam Abdominal exam: Present soft and tenderness; Absent distention, guarding, rebound or rigidity Abdominal tenderness: Present RUQ, RLQ, LUQ, LLQ, epigastrium, suprapubic, diffuse and mild Extremities Exam Extremities exam: Absent edema Neurological Exam Neurological exam: Present alert, oriented X3 and CN II-XII intact Skin Skin exam: Present warm and dry; Absent cyanosis, diaphoresis or pallor HEART Score <Ben Lane MD - Last Filed: 04/21/23 22:58> HEART Score HEART Score assessment performed?: Yes HEART Score: 0 <Stevan Santiago MD - Last Filed: 04/21/23 23:36> HEART Score HEART Score: 0 Critical Care <Ben Lane MD - Last Filed: 04/21/23 22:58> Critical Care Time Critical Care Time: No Medical Decision Making <Ben Lane MD - Last Filed: 04/21/23 22:58> Medical Records Medical records reviewed: Yes I reviewed the patient's medical records. Mario Inquiry Pt receiving controlled substance: No Mario was queried for this patient: No Vital Signs Vital Signs: 04/21/23 21:51 04/21/23 22:00 04/21/23 22:30 Temperature 98.3 F Temperature Source Oral Pulse Rate 82 89 Pulse Rate [Left Radial] 85 Respiratory Rate 18 20 17 Blood Pressure 124/77 118/74 Blood Pressure [Right Arm] 114/77 Blood Pressure Mean 85 Blood Pressure Mean [Right Arm] 89 Blood Pressure Source [Right Arm] Automatic Cuff Blood Pressure Position [Right Arm] Sitting 02 Sat by Pulse Oximetry 100 99 95 Oxygen Delivery Method Room Air Room Air Lab Data Labs: Lab Results 04/21/23 21:53: WBC 7.4, RBC 5.16, Hgb 16.0, Hct 48.6, MCV 94.2 H, MCH 31.0, MCHC 32.9, RDW 13.4, Plt Count 287, MPV 7.6, Neut % (Auto) 62.6, Lymph % (Auto) 28.6, [place] % (Auto) 5.4, Eos % (Auto) 2.4, Baso % (Auto) 1.0, Neut # (Auto) 4.6, Lymph # (Auto) 2.1, [place] # (Auto) 0.4, Eos # (Auto) 0.2, Baso # (Auto) 0.1, Sodium 137, Potassium 3.7, Chloride 107, Carbon Dioxide 27, Anion Gap 6.7, BUN 14, Creatinine 1.10, Estimated Creat Clear 107, Estimated GFR 77, Est GFR ( Amer) 93, Glucose 100, Calcium 9.1, Total Bilirubin 0.5, AST 30, ALT 28, Alkaline Phosphatase 84, Lactate Dehydrogenase 147 L, Troponin I < 0.01, Total Protein 7.2, Albumin 4.1, Globulin 3.1, Albumin/Globulin Ratio 1.3, Lipase 103 04/21/23 21:53 04/21/23 21:53 Response Orders (Tests/Meds): ED MEDICATIONS Discontinued Medications Generic Name Dose Route Start Last Admin Trade Name [place] PRN Reason Stop Dose Admin Acetaminophen 1,000 mg 04/21/23 22:10 04/21/23 22:39 Acetaminophen 500mg Tab PO 04/21/23 22:11 1,000 mg ONCE ONE Administration Lactated Ringer's 1,000 mls @ 999 mls/hr 04/21/23 22:10 04/21/23 22:38 Lactated Ringer's 1000 Ml Bag IV 04/21/23 23:10 999 mls/hr .Q1H1M ONE Administration Ketorolac Tromethamine 15 mg 04/21/23 22:10 04/21/23 22:40 Ketorolac 30mg/Ml Vial IV 04/21/23 22:11 15 mg ONCE ONE Administration Prochlorperazine Edisylate 10 mg 04/21/23 22:10 04/21/23 22:40 Prochlorperazine 10mg/2ml Vial IV 04/21/23 22:11 10 mg ONCE ONE Administration ORDERS Category Date Time Status XR chest 2V Stat Exams 04/21/23 21:59 Completed Complete Blood Count Auto Diff Stat Lab 04/21/23 21:53 Completed Comprehensive Metabolic Panel Stat Lab 04/21/23 21:53 Completed LDH [Lactate Dehydrogenase] Stat Lab 04/21/23 21:53 Completed Lipase Stat Lab 04/21/23 21:53 Completed Troponin I Q3H Lab 04/21/23 21:53 Completed Troponin I Q3H Lab 04/22/23 01:00 Ordered Troponin I Q3H Lab 04/22/23 04:00 Ordered MDM Narrative Medical Decision Narrative: 32-year-old male history of psoriatic arthritis multiple complaints. Patient states that he had epigastric pain/left lower chest wall pain that started yesterday. Intermittent, cramping and sharp in nature. Hurts in right lower quadrant, right upper quadrant, epigastrium, left upper quadrant, left lower quadrant. States that he had diarrhea today that was dark and watery. No vomiting. He states that he is also had headaches. Patient is concerned that he has cancer, multiple sclerosis, among a host of other diseases, however has never been worked up for any of these things. Has follow-up with his primary care provider to start these workups. No fevers, chills, night sweats, unintended weight loss, abdominal surgical history, family history of early cardiac disease or early cancer, or any other concerns. Reassurance given. History obtained with patient. On arrival, patient hemodynamically stable, alert, oriented x4, appropriate, GCS 15, moving all extremities spontaneously, pupils equal and reactive to light. Full physical exam performed and significant for diffuse abdominal tenderness, no signs of peritonitis. It is distractible. No overlying skin changes. No flank tenderness. Afebrile, hemodynamic stable, nontachycardic. Differential includes gastritis, enteritis, PUD, pancreatitis, illness anxiety disorder, generalized anxiety disorder, bronchitis, viral syndrome, among others. Patient was given fluid bolus, Toradol, acetaminophen, Compazine for symptomatic management and correction of underlying abnormalities. Workup independently interpreted and significant for nonactionable CBC, chemistry. Troponin negative, lipase negative. Chest x-ray with no acute cardiopulmonary airspace disease. No subdiaphragmatic free air, no bony abnormalities and otherwise normal. See radiology read for full review of final results. Independent interpretation of EKG shows sinus rhythm 79 beats a minute no ST or T wave changes concerning for acute ischemia. PA, QRS, QT intervals within normal limits. No evidence of right heart strain. [place] normal. Heart score 0. Headache cocktail administered for patient's headache symptoms. Prior to reevaluation, care ended up oncoming physician. Patient likely to be discharged without issue. Patient was placed in observation beginning at 2200 in order to provide headache medications and determine need for admission versus home-going given complaints of severe headache. The patient was provided Compazine, Toradol, acetaminophen, fluid bolus while awaiting results. Independent interpretation of results demonstrated findings as above. Prior to reevaluation, care handed off. Total observation time []. <Stevan Santiago MD - Last Filed: 04/21/23 23:36> Vital Signs Vital Signs: 04/21/23 21:51 04/21/23 22:00 04/21/23 22:30 Temperature 98.3 F Temperature Source Oral Pulse Rate 82 89 Pulse Rate [Left Radial] 85 Respiratory Rate 18 20 17 Blood Pressure 124/77 118/74 Blood Pressure [Right Arm] 114/77 Blood Pressure Mean 85 Blood Pressure Mean [Right Arm] 89 Blood Pressure Source [Right Arm] Automatic Cuff Blood Pressure Position [Right Arm] Sitting 02 Sat by Pulse Oximetry 100 99 95 Oxygen Delivery Method Room Air Room Air Lab Data Labs: Lab Results 04/21/23 21:53: WBC 7.4, RBC 5.16, Hgb 16.0, Hct 48.6, MCV 94.2 H, MCH 31.0, MCHC 32.9, RDW 13.4, Plt Count 287, MPV 7.6, Neut % (Auto) 62.6, Lymph % (Auto) 28.6, [place] % (Auto) 5.4, Eos % (Auto) 2.4, Baso % (Auto) 1.0, Neut # (Auto) 4.6, Lymph # (Auto) 2.1, [place] # (Auto) 0.4, Eos # (Auto) 0.2, Baso # (Auto) 0.1, Sodium 137, Potassium 3.7, Chloride 107, Carbon Dioxide 27, Anion Gap 6.7, BUN 14, Creatinine 1.10, Estimated Creat Clear 107, Estimated GFR 77, Est GFR ( Amer) 93, Glucose 100, Calcium 9.1, Total Bilirubin 0.5, AST 30, ALT 28, Alkaline Phosphatase 84, Lactate Dehydrogenase 147 L, Troponin I < 0.01, Total Protein 7.2, Albumin 4.1, Globulin 3.1, Albumin/Globulin Ratio 1.3, Lipase 103 Response Orders (Tests/Meds): ED MEDICATIONS Discontinued Medications Generic Name Dose Route Start Last Admin Trade Name Freq PRN Reason Stop Dose Admin Acetaminophen 1,000 mg 04/21/23 22:10 04/21/23 22:39 Acetaminophen 500mg Tab PO 04/21/23 22:11 1,000 mg ONCE ONE Administration Lactated Ringer's 1,000 mls @ 999 mls/hr 04/21/23 22:10 04/21/23 22:38 Lactated Ringer's 1000 Ml Bag IV 04/21/23 23:10 999 mls/hr .Q1H1M ONE Administration Ketorolac Tromethamine 15 mg 04/21/23 22:10 04/21/23 22:40 Ketorolac 30mg/Ml Vial IV 04/21/23 22:11 15 mg ONCE ONE Administration Prochlorperazine Edisylate 10 mg 04/21/23 22:10 04/21/23 22:40 Prochlorperazine 10mg/2ml Vial IV 04/21/23 22:11 10 mg ONCE ONE Administration ORDERS Category Date Time Status XR chest 2V Stat Exams 04/21/23 21:59 Completed Complete Blood Count Auto Diff Stat Lab 04/21/23 21:53 Completed Comprehensive Metabolic Panel Stat Lab 04/21/23 21:53 Completed LDH [Lactate Dehydrogenase] Stat Lab 04/21/23 21:53 Completed Lipase Stat Lab 04/21/23 21:53 Completed Troponin I Q3H Lab 04/21/23 21:53 Completed Troponin I Q3H Lab 04/22/23 01:00 Ordered Troponin I Q3H Lab 04/22/23 04:00 Ordered MDM Narrative Medical Decision Narrative: 32-year-old male history of psoriatic arthritis multiple complaints. Patient states that he had epigastric pain/left lower chest wall pain that started yesterday. Intermittent, cramping and sharp in nature. Hurts in right lower quadrant, right upper quadrant, epigastrium, left upper quadrant, left lower quadrant. States that he had diarrhea today that was dark and watery. No vomiting. He states that he is also had headaches. Patient is concerned that he has cancer, multiple sclerosis, among a host of other diseases, however has never been worked up for any of these things. Has follow-up with his primary care provider to start these workups. No fevers, chills, night sweats, unintended weight loss, abdominal surgical history, family history of early cardiac disease or early cancer, or any other concerns. Reassurance given. History obtained with patient. On arrival, patient hemodynamically stable, alert, oriented x4, appropriate, GCS 15, moving all extremities spontaneously, pupils equal and reactive to light. Full physical exam performed and significant for diffuse abdominal tenderness, no signs of peritonitis. It is distractible. No overlying skin changes. No flank tenderness. Afebrile, hemodynamic stable, nontachycardic. Differential includes gastritis, enteritis, PUD, pancreatitis, illness anxiety disorder, generalized anxiety disorder, bronchitis, viral syndrome, among others. Patient was given fluid bolus, Toradol, acetaminophen, Compazine for symptomatic management and correction of underlying abnormalities. Workup independently interpreted and significant for nonactionable CBC, chemistry. Troponin negative, lipase negative. Chest x-ray with no acute cardiopulmonary airspace disease. No subdiaphragmatic free air, no bony abnormalities and otherwise normal. See radiology read for full review of final results. Independent interpretation of EKG shows sinus rhythm 79 beats a minute no ST or T wave changes concerning for acute ischemia. PA, QRS, QT intervals within normal limits. No evidence of right heart strain. [place] normal. Heart score 0. Headache cocktail administered for patient's headache symptoms. Prior to reevaluation, care ended up oncoming physician. Patient likely to be discharged without issue. Patient was placed in observation beginning at 2200 in order to provide headache medications and determine need for admission versus home-going given complaints of severe headache. The patient was provided Compazine, Toradol, acetaminophen, fluid bolus while awaiting results. Independent interpretation of results demonstrated findings as above. Prior to reevaluation, care handed off. Jack JEAN BAPTISTE: I assumed care of the patient at the time of handoff from the prior provider. On reassessment at 1135, patient reports complete symptomatic resolution of his headache. I reviewed his labs and everything is within normal limits. Medication for second troponin. Patient reports that he feels comfortable with discharge. Given this, patient was deemed appropriate for discharge. He was discharged stable condition, return precautions given. Time in observation 1 hour and 35 minutes.
[2023-04-21 22:59] LABS: Lactate Dehydrogenase 147 U/L (313-618)
[2023-04-21 23:40] VITALS: BP 115/69; PULSE 82; RESP 20; TEMP 36.8; O2SAT 96
== END 2023-04-21 23:41 | disposition home or self-care (01) ==
PROVIDERS: Emergency Provider Emergency Medicine; PCP Nurse Practitioner Family
DX: R10.9 Unspecified abdominal pain (principal); K52.9 Noninfective gastroenteritis and colitis, unspecified; F45.21 Hypochondriasis; F17.210 Nicotine dependence, cigarettes, uncomplicated
CPT/HCPCS: 71046; 80053; 83615; 83690; 84484; 85025; 93005; 96361; 96374; 96375; 99285